=== PATIENT | female | born 1945 | race Caucasian/White ===

== ENCOUNTER 2019-08-17 01:18 | Day surgery (SDC) | payer MEDICARE, OTHER, SELFPAY ==
[2019-07-25 16:24] VITALS: BMI 41.3
[2019-08-17] VITALS (13 sets, daily range): BP systolic 149–183; BP diastolic 69–89; PULSE 49–102; RESP 16–24; TEMP 36.3–36.7; O2SAT 95–99; BMI 43.1
[2019-08-17] MEDS: LACTATED RINGERS 1,000 ML 30 ML IV CONT (13:15)
[2019-08-17 13:31] LABS: INR 1.6; Prothrombin Time 18.2 Seconds (11.1-14.7)
[2019-08-17 13:36] LABS: Partial Thromboplastin Time 33.6 SECONDS (22.3-36.8)
[2019-08-17 13:42] LABS: Glucose Point of Care 101 (65-105)
[2019-08-17] MEDS: ceFAZolin 2 GM/D5W 50 ML 2 GM/50 ML BAG IVPB (15:00)
--- NOTE | 2019-08-17 16:05 | PM.PROC ---
Procedure Note - Detailed Date of procedure: 08/17/19 Pre-op diagnosis: Prolapsed Bleeding internal & External Hemorrhoids Post-op diagnosis: same Procedure performed: Excision right anterior complex internal and external hemorrhoids, excision right posterior complex internal and external hemorrhoids, rubber-band ligation right posterior internal hemorrhoid. Description of procedure: The patient was taken to surgery and induced into general anesthesia. She was then placed in prone tobias-knife position. She was carefully secured to the operating room table. The buttocks were taped apart. Prep and drape was carried out. Local anesthesia was infiltrated using 20 cc deep subdermal and 20 cc intra sphincteric. The largest complex was the right anterior. This was excised using the cautery. There was minimal bleeding. The wound was closed with running locking 4 0 chromic suture. There was also a right posterior complex. This was likewise exposed, then excised. Both of these were sent labeled separately and appropriately to the lab in formalin. This wound was likewise closed with running locking 4 0 chromic suture. There was an additional internal hemorrhoid in the right posterior location which was rubber-band ligated. The really were no hemorrhoids on the left side. The wound was inspected for hemostasis which was excellent. Xeroform gauze fluffs tape and promise panties were placed over the rectum. The patient was returned to a supine position. She was awakened, extubated and taken to recovery in good condition. Sponge and needle counts were correct x2. Anesthesia: GETA and local (0.5% Marcaine with Exparel) Surgeon: Blas Lazo MD Ceiling Installer: Braden SOLIS Estimated blood loss (mL): 10 Drains: No Packing: No Pathology: yes (Right anterior complex internal and external hemorrhoids, right posterior complex internal external hemorrhoids) Complications: None Condition: stable Disposition: PACU Findings: See op note, internal and external hemorrhoids.
[2019-08-17 16:26] LABS: Glucose Point of Care 85 (65-105)
--- NOTE | 2019-08-17 17:44 | ADMGEN ---
This patient, Ermelinda Oneill, was admitted to [facility]. Patient/family oriented to hospital policies and general routines including ID bracelet, bed and alarms, visiting hours, pain management, procedures, bathroom and other care routines, personal items, smoking policy, room service/diet, and visiting hours. Valuables list has been completed. Information on how to activate the Rapid Response Team has been discussed. Patient/Family are encouraged to report perceived risks to care and to ask questions if they do not understand what they are told or what they should do.
[2019-08-17 18:38] LABS: Glucose Point of Care 115 (65-105)
--- NOTE | 2019-08-17 19:58 | PC.NURSE ---
brannon placed patient tolrated well.
[2019-08-17 20:44] LABS: Glucose Point of Care 164 (65-105)
[2019-08-17] MEDS: MINERAL OIL 30 ML UDC 15 ML PO (21:41)
[2019-08-17] MEDS: PSYLLIUM POWDER PACKET 1 PACKET PO (21:41)
[2019-08-17] MEDS: POTASSIUM CHLORIDE 10 MEQ TABLET.ER PO (21:43)
[2019-08-17] MEDS: METOPROLOL TARTRATE 12.5 MG TABLET PO (21:43)
[2019-08-17] MEDS: glipiZIDE 5 MG TABLET PO (21:43)
[2019-08-17] MEDS: LORAZEPAM 0.5 MG TABLET PO (21:43)
[2019-08-17] MEDS: PANTOPRAZOLE 40 MG TABLET PO (21:44)
[2019-08-17] MEDS: ATORVASTATIN 40 MG TABLET 80 MG PO (21:44)
[2019-08-17] MEDS: levETIRAcetam 500 MG TABLET PO (21:45)
[2019-08-17] MEDS: ENOXAPARIN 30 MG/0.3 ML SYRINGE SUB-Q (21:46)
[2019-08-18 06:40] VITALS: BP 131/51; PULSE 59; RESP 20; TEMP 36.6; O2SAT 96
[2019-08-18 06:44] LABS: Hematocrit 40.1 % (37.0-47.0); Hemoglobin 12.9 g/dL (12.0-15.0); Immature Platelet Fraction Pct 13.9 % (0.9-11.2); Mean Corpuscular HGB Conc 32.2 g/dl (32-36); Mean Corpuscular Hemoglobin 29.2 pg (26-34); Mean Corpuscular Volume 90.7 fl (80-100); Mean Platelet Volume 13.4 fl (7.4-10.4); Platelet Count Result 222 k/mm3 (150-375); Red Blood Count 4.42 M/mm3 (4.2-5.4); Red Cell Distribution Width 13.5 % (11.5-14.5); White Blood Count 15.9 K/mm3 (4.5-10.0)
[2019-08-18 06:54] LABS: Blood Urea Nitrogen 19 mg/dL (7-17); Carbon Dioxide 28 mmol/L (22-30); Chloride 100 mmol/L (98-107); Estimated Glomerular Filt Rate 37; Glucose 133 mg/dL (65-105); Sodium 140 mmol/L (137-145)
[2019-08-18 08:00] VITALS: PULSE 59; RESP 20; O2SAT 96
[2019-08-18] MEDS: CYANOCOBALAMIN 1,000 MCG TABLET 1000 MCG PO (10:06)
[2019-08-18] MEDS: levETIRAcetam 500 MG TABLET PO (10:07)
[2019-08-18] MEDS: LOSARTAN POTASSIUM 100 MG TABLET PO (10:08)
[2019-08-18] MEDS: METOPROLOL TARTRATE 12.5 MG TABLET PO (10:08)
[2019-08-18] MEDS: PANTOPRAZOLE 40 MG TABLET PO (10:09)
[2019-08-18] MEDS: glipiZIDE 5 MG TABLET PO (10:09)
[2019-08-18] MEDS: CALCIUM CARBONATE (OSCAL) 500 MG TABLET PO (10:10)
[2019-08-18] MEDS: ENOXAPARIN 30 MG/0.3 ML SYRINGE SUB-Q (10:10)
[2019-08-18] MEDS: ASPIRIN 81 MG ENTERIC TABLET PO (10:10)
[2019-08-18] MEDS: MINERAL OIL 30 ML UDC 15 ML PO (10:11)
[2019-08-18] MEDS: PSYLLIUM POWDER PACKET 1 PACKET PO (10:14)
--- NOTE | 2019-08-18 10:19 | PM.DS ---
DS: Diagnosis Admitting Diagnosis Admitting Diagnosis: Type 2 diabetes mellitus without complications Internal and External Hemorrhoids Discharge Diagnosis (1) Internal and external bleeding hemorrhoids: Code(s): K64.4 - Residual hemorrhoidal skin tags; K64.8 - Other hemorrhoids Status: Acute (2) Morbid obesity: Code(s): E66.01 - Morbid (severe) obesity due to excess calories Status: Acute (3) Diabetes: Code(s): E11.9 - Type 2 diabetes mellitus without complications Status: Acute (4) History of CVA (cerebrovascular accident): Code(s): Z86.73 - Personal history of transient ischemic attack (TIA), and cerebral infarction without residual deficits Status: Acute DS: Summary Hospital Course Reason for hospitalization: Postoperative care after internal and external hemorrhoidectomy Hospital Course: This is a 73-year-old woman who presented with complicated internal and external hemorrhoids. She underwent elective internal external hemorrhoidectomy x2 columns by Dr. Lazo. She was admitted for postoperative care due to her chronic debility from previous stroke. She was incontinent of urine and it was difficult to keep her dressings dry initially postoperatively, therefore a Burden catheter was placed for prevention of saturating her dressings. She did well overnight and pain was controlled. Her diet was able to be advanced as tolerated. On postop day 1 her Burden catheter was removed. She was discharged on postop day 1. Status at Discharge Overall status at discharge: patient is progressing back to baseline Time Spent with Patient Time attestation: Total time spent providing and/or coordinating discharge services: Time spent: Less than 30 minutes Exam GI: Rectal Exam: other (Normal postoperative appearance without significant bleeding) Urinary Catheter: Urinary Catheter: urine clear DS: Data Data Completed and Pending Pending studies at discharge: Pending at discharge 08/17/19 15:37 Surgical [PTH] Routine 08/17/19 15:39 Surgical [PTH] Routine Labs on day of discharge: Labs from last 24 hours 08/18/19 08/18/19 08/17/19 06:03 06:03 19:40 WBC 15.9 H RBC 4.42 Hgb 12.9 Hct 40.1 MCV 90.7 MCH 29.2 MCHC 32.2 RDW 13.5 Plt Count 222 MPV 13.4 H % Immature Plt Fraction 13.9 H PT INR APTT Sodium 140 Potassium 5.0 Chloride 100 Carbon Dioxide 28 BUN 19 H Creatinine 1.40 H Estim Creat Clear Calc Not Reportable Estimated GFR 37 L Glucose 133 H POC Capillary Glucose 164 H Calcium 8.0 L 08/17/19 08/17/19 08/17/19 18:34 16:23 13:39 WBC RBC Hgb Hct MCV MCH MCHC RDW Plt Count MPV % Immature Plt Fraction PT INR APTT Sodium Potassium Chloride Carbon Dioxide BUN Creatinine Estim Creat Clear Calc Estimated GFR Glucose POC Capillary Glucose 115 H 85 101 Calcium 08/17/19 13:13 WBC RBC Hgb Hct MCV MCH MCHC RDW Plt Count MPV % Immature Plt Fraction PT 18.2 H INR 1.6 APTT 33.6 Sodium Potassium Chloride Carbon Dioxide BUN Creatinine Estim Creat Clear Calc Estimated GFR Glucose POC Capillary Glucose Calcium Discharge Plan Discharge Patient Disposition: Home, Self-Care Discharge Instructions: Discharge Instructions for Anorectal Surgery Dr. Lazo 1. May discharge from Outpatient Surgery area or Surgical Floor when stable per protocol. 2. Activity: Remove dressing and start Sitz baths in a.m. following surgery. Once at home, all patients should take 10-20 minute Sitz baths at least three times per day and as needed after each bowel movement. Rest around the house for the next 1-2 days, taking frequent walks. No driving for 2-3 days or while taking narcotic pain medications. 3
[2019-08-18 11:50] LABS: Glucose Point of Care 199 (65-105)
--- NOTE | 2019-08-18 12:46 | WPDANESPN ---
Anes - Prog Note Post-Op Date/Time: 08/18/19 12:46 Cardiovascular status: normal Respiratory status: normal Airway patency: baseline Mental status: baseline Post-Op hydration status: normal Vital Signs: Last Vital Signs Temp 97.8 F 08/18/19 06:40 Pulse 59 L 08/18/19 08:00 Resp 20 08/18/19 08:00 BP 131/51 L 08/18/19 06:40 Pulse Ox 96 08/18/19 08:00 I/O: Intake & Output 08/17/19 08/18/19 08/18/19 23:59 07:59 15:59 Intake Total 400 200 240 Output Total 325 600 Balance 75 -400 240 Laboratory Tests 08/18/19 06:03 08/18/19 06:03 08/17/19 08/17/19 08/17/19 13:13 13:39 16:23 WBC RBC Hgb Hct MCV MCH MCHC RDW Plt Count MPV % Immature Plt Fraction PT 18.2 H INR 1.6 APTT 33.6 Sodium Potassium Chloride Carbon Dioxide BUN Creatinine Estim Creat Clear Calc Estimated GFR Glucose POC Capillary Glucose 101 85 Calcium 08/17/19 08/17/19 08/18/19 18:34 19:40 06:03 WBC 15.9 H RBC 4.42 Hgb 12.9 Hct 40.1 MCV 90.7 MCH 29.2 MCHC 32.2 RDW 13.5 Plt Count 222 MPV 13.4 H % Immature Plt Fraction 13.9 H PT INR APTT Sodium Potassium Chloride Carbon Dioxide BUN Creatinine Estim Creat Clear Calc Estimated GFR Glucose POC Capillary Glucose 115 H 164 H Calcium 08/18/19 08/18/19 06:03 11:48 WBC RBC Hgb Hct MCV MCH MCHC RDW Plt Count MPV % Immature Plt Fraction PT INR APTT Sodium 140 Potassium 5.0 Chloride 100 Carbon Dioxide 28 BUN 19 H Creatinine 1.40 H Estim Creat Clear Calc Not Reportable Estimated GFR 37 L Glucose 133 H POC Capillary Glucose 199 H Calcium 8.0 L Post-procedural complaints: none Patient Feedback: Patient satisfied with anesthetic care.
[2019-08-18 13:31] VITALS: BP 135/58; PULSE 60; RESP 16; TEMP 36.2; O2SAT 97
== END 2019-08-18 17:50 | disposition home or self-care (01) ==
LOC: ANHSURGERY 16:05 → ANH3MEDSUR 18:05
PROVIDERS: Anesthesiology; PCP Family Medicine; Visit Provider Surgery
PROC: (CPT 46260; principal; 2019-08-17 14:30)
DX: K64.8 Other hemorrhoids (principal); K64.4 Residual hemorrhoidal skin tags; E11.9 Type 2 diabetes mellitus without complications; I10 Essential (primary) hypertension; E78.5 Hyperlipidemia, unspecified; Z86.73 Personal history of transient ischemic attack (TIA), and cerebral infarction without residual deficits; E66.01 Morbid (severe) obesity due to excess calories; Z68.41 Body mass index [BMI] 40.0-44.9, adult; Z79.01 Long term (current) use of anticoagulants; Z87.891 Personal history of nicotine dependence
CPT/HCPCS: 46260; 36415; 80048; 85027; 85055; 85610; 85730; 88304; A9270; C9290; J0690; J1650; J2405; J2704; J3010; J7120

== ENCOUNTER 2019-10-08 17:00 | Emergency (ER) | payer MEDICARE, OTHER, SELFPAY ==
--- NOTE | ~2019-10-08 | CT_ITS ---
EXAMINATION: CT brain wo con, CT cervical spine wo con EXAM DATE: 10/08/2019 18:52 INDICATION: Fall. Neck pain. On blood thinners. TECHNIQUE: Spiral CT of the head was performed without contrast. Axial, coronal and sagittal images were reviewed. Spiral CT of the cervical spine was performed without contrast. Axial images were rev iewed. Coronal and sagittal reformatted images were also reviewed. The dose-length product (DLP) fo r this examination was 605.33 (accession [id number]), 516.52 (accession [id number]) mGy-cm. The exposure was tailored according to patient size, and iterative reconstruction (ASIR) was used as additional dose reduction technique. Comparison is made to prior examination from 09/15/2018. FINDINGS: HEAD CT: There is small old left occipital lobe infarction unchanged. Small old left frontal lobe sub cortical infarction unchanged. There is no acute intraparenchymal hemorrhage. No evidence of intrapa renchymal brain mass lesion. No evidence of acute infarction. There is moderate periventricular and subcortical hypodensity, nonspecific but probably related to small vessel ischemic disease. There i s mild to moderate prominence of the sulci and ventricles related to cerebral atrophy. There is int racranial carotid arteriosclerosis. There is no mass effect or midline shift. There is no obstructi ve hydrocephalus suspected. There are no extra-axial collections. There are no acute calvarial frac tures. The orbits are unremarkable. Soft tissue is unremarkable. The visualized sinuses and mastoi d air cells are well aerated. CERVICAL CT: There is no evidence of acute cervical fracture. The odontoid process is intact. Pre- dens space is normal. Prevertebral soft tissue is normal. There are no soft tissue abnormalities id entified. There is no disc space widening or traumatic vertebral body subluxation suspected. There is moderate lower cervical disc disease. Overall moderate cervical arthropathy. Some significant lowe r cervical neural foraminal stenosis, moderate to severe at the right C6-7 level. A detailed level b y level evaluation of spondylosis can be added as addendum if requested. IMPRESSION: 1. No acute intracranial or cervical findings. 2. Old small left-sided infarctions. 3. Age-related intracranial findings. 4. Moderate cervical spondylosis. Reviewed, dictated and finalized at location A. IMPRESSION: 1. No acute intracranial or cervical findings. 2. Old small left-sided infarctions. 3. Age-related intracranial findings. 4. Moderate cervical spondylosis.
--- NOTE | ~2019-10-08 | XR_ITS ---
EXAMINATION: XR pelvis 1-2V EXAM DATE: 10/08/2019 19:18 INDICATION: Fall, tailbone pain. TECHNIQUE: Pelvis frontal projection(s) obtained and reviewed. There is no prior study for compariso n. FINDINGS: There are no acute pelvic fractures or dislocations identified. Sacrum, sacroiliac joints, sacral arcuate lines are intact. There is no subcutaneous gas. The soft tissue is unremarkable. There are no radiopaque foreign bodies. IMPRESSION: No acute osseous findings. Reviewed, dictated and finalized at location A. IMPRESSION: No acute osseous findings.
--- NOTE | ~2019-10-08 | XR_ITS ---
EXAMINATION: XR thoracic spine 3V EXAM DATE: 10/08/2019 19:19 INDICATION: Fall, back pain. TECHNIQUE: Frontal and lateral projections of the thoracic spine as well as lateral swimmers projecti on of the upper thoracic spine for interpretation. There is no prior study for comparison. FINDINGS: Vertebral body heights are maintained. There is mild to moderate mid thoracic disc disease . The vertebral bodies are aligned in the AP dimension. There are no acute fractures identified. Ther e are cholecystectomy clips. IMPRESSION: Mild to moderate mid thoracic spondylosis. Reviewed, dictated and finalized at location A.
--- NOTE | ~2019-10-08 | XR_ITS ---
EXAMINATION: XR ribs LT 2V w CXR 2V EXAM DATE: 10/08/2019 19:18 INDICATION: Fall, left-sided rib pain. TECHNIQUE: Frontal projection of the upper left ribs, frontal projection of the lower left ribs, obli que projection of the left ribs, frontal and lateral chest x-ray(s) for interpretation. Comparison is made to prior examination from 03/27/2019. FINDINGS: There are no displaced acute left rib fractures identified. There is no soft tissue abnor mality seen. No confluent consolidation, pneumothorax or pleural effusion suspected. IMPRESSION: No displaced left rib fractures. Reviewed, dictated and finalized at location A.
--- NOTE | ~2019-10-08 | XR_ITS ---
EXAMINATION: XR hand LT min 3V EXAM DATE: 10/08/2019 19:17 INDICATION: Initial encounter following injury, with pain of the left hand. Laceration. TECHNIQUE: Left hand frontal, lateral and oblique projections obtained and reviewed. There is no jessica or study for comparison. FINDINGS: Left metacarpal bones are unremarkable. There are no acute fractures or dislocations ident ified. There is no subcutaneous gas. There is a bandage overlying soft tissue laceration, obscuring soft tissue details. There are no radiopaque foreign bodies. 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 IMPRESSION: 1. XR hand LT min 3V exam without acute osseous findings. 2. Laceration. Reviewed, dictated and finalized at location A.
[2019-10-08 17:00] VITALS: BP 151/72; PULSE 78; RESP 16; TEMP 36.8; O2SAT 99
--- NOTE | 2019-10-08 18:48 | ED.FALL ---
HPI - Fall General Chief Complaint: Fall <Nishi Sweeney PA-C - Last Filed: 10/08/19 20:36> Stated Complaint: fall <Nishi Sweeney PA-C - Last Filed: 10/08/19 20:36> Time Seen by Provider: 10/08/19 17:09 <Nishi Sweeney PA-C - Last Filed: 10/08/19 20:36> Source: patient <SHANTEL Glaser Last Filed: 10/08/19 20:36> Mode of arrival: EMS <SHANTEL Glaser Last Filed: 10/08/19 20:36> Limitations: no limitations <SHANTEL Glaser Last Filed: 10/08/19 20:36> History of Present Illness HPI Narrative: Patient presents with chief complaint of pain to posterior left side of head and neck, thoracic spine, left rib, pelvis, laceration to the left hand after miss stepping while wearing flip-flops in her garage and falling. Patient was wearing medical alert necklace and was retrieved and brought to the ER in 15 minutes after falling. She reports she has had multiple strokes in the past which affect her leg lifting at times. Patient denies loss of consciousness. Patient denies changes to vision, hearing, nausea, vomiting, diarrhea, chest pain, shortness of breath, fever, cough or neurological deficit. She reports she is having more more muscle soreness that she sits. Patient states that she has not fallen in a year and a half and thinks it is due to wearing new slippery flip-flops.Patient reports being on warfarin. She states some of her neck and back pain is chronic but has worsened after fall. <Nishi Sweeney PA-C - Last Filed: 10/08/19 20:36> Related Data Home Medications: Home Medications Medication Instructions Recorded Confirmed aspirin 81 mg tablet,delayed 81 mg PO DAILY 07/23/19 09/17/19 release calcium carbonate 600 mg calcium 600 mg PO DAILY 07/23/19 09/17/19 (1,500 mg) tablet cyanocobalamin (vitamin B-12) 1,000 mcg PO DAILY 07/23/19 09/17/19 1,000 mcg capsule levetiracetam 500 mg tablet 500 mg PO Q12H 07/23/19 09/17/19 albuterol sulfate [Proventil HFA] 1 inh INHALATION QID PRN 07/25/19 09/17/19 atorvastatin 80 mg PO HS 07/25/19 09/17/19 glipizide 5 mg PO BID 07/25/19 09/17/19 lorazepam 0.5 mg PO HS 07/25/19 09/17/19 losartan 100 mg PO DAILY 07/25/19 09/17/19 metoprolol tartrate 12.5 mg PO BID 07/25/19 09/17/19 omeprazole 40 mg PO DAILY 07/25/19 09/17/19 potassium chloride 10 meq PO HS 07/25/19 09/17/19 warfarin 2 mg PO HS 07/25/19 09/17/19 <Nishi Sweeney PA-C - Last Filed: 10/08/19 20:36> Allergies/Adverse Reactions: Allergies Allergy/AdvReac Type Severity Reaction Status Date / Time No Known Allergies Allergy Verified 09/17/19 13:47 <Nishi Sweeney PA-C - Last Filed: 10/08/19 20:36> Review of Systems Review of Systems: Narrative: CONSTITUTIONAL: Denies fever, chills, or sweats. EYES: Denies visual changes, redness, or discharge. ENT: Denies rhinorrhea, congestion, sore throat, or otalgia. CARDIOVASCULAR: Denies chest pain, palpitations, or edema. RESPIRATORY: Denies cough or dyspnea. GASTROINTESTINAL: Denies abdominal pain, nausea, vomiting, or diarrhea. GENITOURINARY: Denies dysuria or hematuria. SKIN: Denies rash or itching. MUSCULOSKELETAL: Reports head pain, neck pain, back pain, left rib pain, pelvic pain NEUROLOGIC: Reports headache, denies numbness, dizziness, or weakness. PSYCHIATRIC: Denies anxiety or depression. <Nishi Sweeney PA-C - Last Filed: 10/08/19 20:36> [facility] Social History Social History: Social History Smoking status: Former smoker Alcohol intake: never Substance use: never Substance use type: does not use Gender identity (if verbalized by the patient): Female Spiritual care concerns: No <Nishi Sweeney PA-C - Last Filed: 10/08/19 20:36> Exam Narrative: Exam Narrative: GENERAL: Well-appearing, well-nourished, and in no acute distress. HEAD: Normocephalic, atraumatic.left posterior head tenderness EYES: PERRLA and EOMI.No hyphema.
[2019-10-08 19:38] VITALS: BP 166/60; PULSE 62; RESP 19; TEMP 36.6; O2SAT 98
--- NOTE | 2019-10-08 19:38 | PC.NURSE ---
Assumed care of pt at this time. report from SHIRA Davies
[2019-10-08 21:00] VITALS: BP 165/65; PULSE 100; RESP 19; O2SAT 97
== END 2019-10-08 21:00 | disposition home or self-care (01) ==
PROVIDERS: Emergency Provider Emergency Medicine; PCP Family Medicine
DX: S61.412A Laceration without foreign body of left hand, initial encounter (principal); M54.2 Cervicalgia; M53.3 Sacrococcygeal disorders, not elsewhere classified; M54.6 Pain in thoracic spine; S09.90XA Unspecified injury of head, initial encounter; Z87.891 Personal history of nicotine dependence; M47.812 Spondylosis without myelopathy or radiculopathy, cervical region; M47.814 Spondylosis without myelopathy or radiculopathy, thoracic region; W10.9XXA Fall (on) (from) unspecified stairs and steps, initial encounter
CPT/HCPCS: 12002; 70450; 71045; 71101; 72072; 72125; 72170; 73130; 96374; 99284; J0131

== ENCOUNTER 2019-10-09 01:25 | Emergency (ER) | payer MEDICARE, OTHER, SELFPAY ==
[2019-10-09 01:32] VITALS: BP 140/83; PULSE 58; RESP 15; TEMP 36.4; O2SAT 98
--- NOTE | 2019-10-09 01:33 | ED.WOUNDLAC ---
HPI - Wound/Laceration General Chief Complaint: Wound/Laceration Stated Complaint: bleeding from wound on thumb/ wrist Time Seen by Provider: 10/09/19 01:31 Source: patient and RN notes reviewed Mode of arrival: other Limitations: no limitations History of Present Illness HPI narrative: Pt is a 73 y/o female who presents to the ED with c/o constant bleeding from her laceration on her left wrist that occurred yesterday (10/08/19) after a fall. Pt was here at [facility] yesterday and was fully evaluated. Pt had her laceration sutured, but she states that her wound still continued to bleed. Pt's wound was covered in a bandage. Pt denies numbness and tingling. Pt is taking Warfarin. Pt states that she did not take her Warfarin tonight. Onset (ago): day(s) (1) Location: other (wrist) Extremity Location: Left: wrist Place: home Patient tetanus UTD: Yes Context: fall Associated symptoms: none Treatments prior to arrival: bandage Related Data Home Medications Medication Instructions Recorded Confirmed aspirin 81 mg tablet,delayed 81 mg PO DAILY 07/23/19 09/17/19 release calcium carbonate 600 mg calcium 600 mg PO DAILY 07/23/19 09/17/19 (1,500 mg) tablet cyanocobalamin (vitamin B-12) 1,000 mcg PO DAILY 07/23/19 09/17/19 1,000 mcg capsule levetiracetam 500 mg tablet 500 mg PO Q12H 07/23/19 09/17/19 albuterol sulfate [Proventil HFA] 1 inh INHALATION QID PRN 07/25/19 09/17/19 atorvastatin 80 mg PO HS 07/25/19 09/17/19 glipizide 5 mg PO BID 07/25/19 09/17/19 lorazepam 0.5 mg PO HS 07/25/19 09/17/19 losartan 100 mg PO DAILY 07/25/19 09/17/19 metoprolol tartrate 12.5 mg PO BID 07/25/19 09/17/19 omeprazole 40 mg PO DAILY 07/25/19 09/17/19 potassium chloride 10 meq PO HS 07/25/19 09/17/19 warfarin 2 mg PO 07/25/19 09/17/19 Allergies Allergy/AdvReac Type Severity Reaction Status Date / Time No Known Allergies Allergy Verified 09/17/19 13:47 Review of Systems Review of Systems: All systems reviewed & are unremarkable except as noted in HPI and below Integumentary/Breasts: Skin/Breast: Reports other (constant bleeding from sutured laceration) Neurologic: Denies numbness and Denies tingling PMFSH Past Medical History Medical History (Updated 10/09/19 @ 01:52 by Lelia Martini) Anxiety Arthritis Asthma Bronchitis CAD (coronary artery disease) Carpal tunnel syndrome Cataracts, bilateral DDD (degenerative disc disease) Depression Diabetes Diverticulosis DVT (deep venous thrombosis) Eczema Encounter for surgical aftercare following surgery on the digestive system Endometriosis Fibromyalgia Frequent falls GERD (gastroesophageal reflux disease) Glaucoma Grade IV hemorrhoids History of CVA (cerebrovascular accident) 2017 x3, with residual right sided weakness HTN (hypertension) Hyperlipidemia IBS (irritable bowel syndrome) Internal and external bleeding hemorrhoids Morbid obesity Peripheral neuropathy Pneumonia Rectocele Seizure Skin cancer on nose Sleep apnea Spinal stenosis TIA (transient ischemic attack) 2018 Tinnitus Toe fracture Uterine fibroid UTI (urinary tract infection) Surgical History Surgical History (Updated 10/09/19 @ 01:52 by Lelia Martini) H/O rectocele repair History of cardiac catheterization History of carpal tunnel release History of hemorrhoidectomy 08/27/2019 History of spinal surgery History of surgical removal of skin lesion on nose History of total right knee replacement (TKR) History of tubal ligation Hx of appendectomy Hx of breast reduction, elective Hx of cataract removal with insertion of prosthetic lens Hx of section x3 Hx of cholecystectomy Hx of tonsillectomy Family History Family History (Updated 10/09/19 @ 01:51 by Lelia Martini) Father Family history of malignant neoplasm Lung cancer Mother Family history of malignant neoplasm Diabetes mellitus Hypertension CAD (coronary artery disease) Bone cancer Acute myocardial inf
[2019-10-09 02:00] VITALS: BP 163/88; PULSE 88; RESP 17; O2SAT 97
== END 2019-10-09 02:00 | disposition home or self-care (01) ==
PROVIDERS: Emergency Provider Emergency Medicine; PCP Family Medicine
DX: S61.512D Laceration without foreign body of left wrist, subsequent encounter (principal); W19.XXXD Unspecified fall, subsequent encounter; Z79.01 Long term (current) use of anticoagulants; F41.9 Anxiety disorder, unspecified; M19.90 Unspecified osteoarthritis, unspecified site; J45.909 Unspecified asthma, uncomplicated; I25.10 Atherosclerotic heart disease of native coronary artery without angina pectoris; F32.9 Major depressive disorder, single episode, unspecified; Z86.718 Personal history of other venous thrombosis and embolism; M79.7 Fibromyalgia; K21.9 Gastro-esophageal reflux disease without esophagitis; H40.9 Unspecified glaucoma; I10 Essential (primary) hypertension; E78.5 Hyperlipidemia, unspecified; E11.42 Type 2 diabetes mellitus with diabetic polyneuropathy; E66.01 Morbid (severe) obesity due to excess calories; Z85.828 Personal history of other malignant neoplasm of skin; G47.30 Sleep apnea, unspecified; I69.351 Hemiplegia and hemiparesis following cerebral infarction affecting right dominant side; Z96.651 Presence of right artificial knee joint; G40.909 Epilepsy, unspecified, not intractable, without status epilepticus
CPT/HCPCS: 12001; 99282

== ENCOUNTER 2019-10-09 07:58 | Emergency (ER) | payer MEDICARE, OTHER, SELFPAY ==
[2019-10-09 08:02] VITALS: BP 175/80; PULSE 67; RESP 20; TEMP 36.6; O2SAT 98
--- NOTE | 2019-10-09 09:15 | ED.GENADULT ---
HPI - General Adult General Chief complaint: Wound/Laceration Stated complaint: Hand won't stop bleeding Time Seen by Provider: 10/09/19 08:26 Source: patient, family and old records reviewed History of Present Illness HPI narrative: Patient is a 73-year-old female who presents to emergency department for evaluation of bleeding from laceration of the left hand was seen yesterday had repair wound continued to bleed Surgicel was placed patient notes that she has continued to have oozing from the wound patient assures clear secondary to history of stroke. Patient notes mild aching pain with palpation denies numbness tingling or other complaints and on arrival is resting comfortably in the room in no distress Related Data Home Medications Medication Instructions Recorded Confirmed aspirin 81 mg tablet,delayed 81 mg PO DAILY 07/23/19 09/17/19 release calcium carbonate 600 mg calcium 600 mg PO DAILY 07/23/19 09/17/19 (1,500 mg) tablet cyanocobalamin (vitamin B-12) 1,000 mcg PO DAILY 07/23/19 09/17/19 1,000 mcg capsule levetiracetam 500 mg tablet 500 mg PO Q12H 07/23/19 09/17/19 albuterol sulfate [Proventil HFA] 1 inh INHALATION QID PRN 07/25/19 09/17/19 atorvastatin 80 mg PO HS 07/25/19 09/17/19 glipizide 5 mg PO BID 07/25/19 09/17/19 lorazepam 0.5 mg PO HS 07/25/19 09/17/19 losartan 100 mg PO DAILY 07/25/19 09/17/19 metoprolol tartrate 12.5 mg PO BID 07/25/19 09/17/19 omeprazole 40 mg PO DAILY 07/25/19 09/17/19 potassium chloride 10 meq PO HS 07/25/19 09/17/19 warfarin 2 mg PO HS 07/25/19 09/17/19 Allergies Allergy/AdvReac Type Severity Reaction Status Date / Time No Known Allergies Allergy Verified 09/17/19 13:47 Review of Systems Review of Systems: Narrative: CONSTITUTIONAL: Denies fever, chills, or sweats. SKIN: Positive for laceration with bleeding MUSCULOSKELETAL: Denies back pain, joint pain, or myalgia. NEUROLOGIC: Denies numbness, dizziness, or weakness. [facility] Past Medical History Medical History Anxiety Arthritis Asthma Bronchitis CAD (coronary artery disease) Carpal tunnel syndrome Cataracts, bilateral DDD (degenerative disc disease) Depression Diabetes Diverticulosis DVT (deep venous thrombosis) Eczema Encounter for surgical aftercare following surgery on the digestive system Endometriosis Fibromyalgia Frequent falls GERD (gastroesophageal reflux disease) Glaucoma Grade IV hemorrhoids History of CVA (cerebrovascular accident) 2017 x3, with residual right sided weakness HTN (hypertension) Hyperlipidemia IBS (irritable bowel syndrome) Internal and external bleeding hemorrhoids Morbid obesity Peripheral neuropathy Pneumonia Rectocele Seizure Skin cancer on nose Sleep apnea Spinal stenosis TIA (transient ischemic attack) 2018 Tinnitus Toe fracture Uterine fibroid UTI (urinary tract infection) Surgical History Surgical History H/O rectocele repair History of cardiac catheterization History of carpal tunnel release History of hemorrhoidectomy 08/27/2019 History of spinal surgery History of surgical removal of skin lesion on nose History of total right knee replacement (TKR) History of tubal ligation Hx of appendectomy Hx of breast reduction, elective Hx of cataract removal with insertion of prosthetic lens Hx of section x3 Hx of cholecystectomy Hx of tonsillectomy Family History Family History (Updated 10/09/19 @ 01:51 by Lelia Martini) Father Family history of malignant neoplasm Lung cancer Mother Family history of malignant neoplasm Diabetes mellitus Hypertension CAD (coronary artery disease) Bone cancer Acute myocardial infarction Sibling Hypertension Social History Social History Smoking status: Former smoker Tobacco type: cigarettes Smoking end date: 07/11/01 [place]
[2019-10-09 09:24] LABS: Prothrombin Time 52.2 Seconds (11.1-14.7)
[2019-10-09 09:29] LABS: INR 5.9
[2019-10-09 09:56] LABS: Basophils Percent Auto 0.4 % (0.2-1.2); Eosinophils Absolute Auto 0.3 K/mm3 (0-0.3); Eosinophils Percent Auto 2.4 % (0-4.4); Hematocrit 41.8 % (37.0-47.0); Hemoglobin 13.4 g/dL (12.0-15.0); Immature Granulocyte Absolute 0.04 K/mm3 (0.00-0.031); Immature Granulocyte Percent A 0.4 % (0-0.5); Immature Platelet Fraction Pct 11.7 % (0.9-11.2); Lymphocytes Absolute Auto 2.71 K/mm3 (0.9-3.2); Lymphocytes Percent Auto 25.5 % (18.3-44.2); Mean Corpuscular HGB Conc 32.1 g/dl (32-36); Mean Corpuscular Hemoglobin 29.1 pg (26-34); Mean Corpuscular Volume 90.7 fl (80-100); Monocytes Absolute Auto 0.9 K/mm3 (0.1-0.6); Monocytes Percent Auto 8.4 % (2.6-8.5); Neutrophils Absolute Auto 6.7 K/mm3 (1.3-6.7); Neutrophils Percent Auto 62.9 % (45.5-73.1); Platelet Count Result 209 k/mm3 (150-375); Red Blood Count 4.61 M/mm3 (4.2-5.4); Red Cell Distribution Width 14.8 % (11.5-14.5); White Blood Count 10.6 K/mm3 (4.5-10.0)
[2019-10-09 10:16] LABS: Blood Urea Nitrogen 24 mg/dL (7-17); Calcium 8.9 mg/dL (8.4-10.2); Carbon Dioxide 22 mmol/L (22-30); Chloride 108 mmol/L (98-107); Estimated Glomerular Filt Rate 26; Glucose 173 mg/dL (65-105); Potassium 3.9 mmol/L (3.4-5.0); Sodium 138 mmol/L (137-145)
[2019-10-09 10:34] VITALS: BP 160/80; PULSE 65; RESP 16
== END 2019-10-09 10:49 | disposition home or self-care (01) ==
PROVIDERS: Emergency Medicine Emergency Medical Services; Emergency Provider Emergency Medicine; PCP Family Medicine
DX: L76.22 Postprocedural hemorrhage of skin and subcutaneous tissue following other procedure (principal); Z87.891 Personal history of nicotine dependence; F41.9 Anxiety disorder, unspecified; M19.90 Unspecified osteoarthritis, unspecified site; I25.10 Atherosclerotic heart disease of native coronary artery without angina pectoris; E11.42 Type 2 diabetes mellitus with diabetic polyneuropathy; Z86.718 Personal history of other venous thrombosis and embolism; M79.7 Fibromyalgia; K21.9 Gastro-esophageal reflux disease without esophagitis; I69.351 Hemiplegia and hemiparesis following cerebral infarction affecting right dominant side; I10 Essential (primary) hypertension; E78.5 Hyperlipidemia, unspecified; E66.01 Morbid (severe) obesity due to excess calories; Z85.828 Personal history of other malignant neoplasm of skin; G47.30 Sleep apnea, unspecified; G40.909 Epilepsy, unspecified, not intractable, without status epilepticus; Z96.651 Presence of right artificial knee joint
CPT/HCPCS: 12001; 36415; 80048; 85025; 85055; 85610; 99282

== ENCOUNTER 2019-10-25 15:22 | Inpatient (IN) | payer MEDICARE, OTHER, SELFPAY ==
--- NOTE | ~2019-10-25 | XR_ITS ---
EXAMINATION: XR chest 2V 10/25/2019 16:43 INDICATION: Weakness for 3 days. History of abnormal asthma and shortness of breath. PROCEDURE: 2 view chest COMPARISON: Comparison to multiple prior studies sequentially, with oldest reviewed study dated 02/24 . FINDINGS: The lungs are clear. The cardiomediastinal silhouette is within normal limits. There are no pleural effusions. There is no pneumothorax suspected. Calcified granuloma left upper lobe. IMPRESSION: 1: NO ACUTE CARDIOPULMONARY DISEASE. Reviewed, dictated and finalized at location A.
--- NOTE | ~2019-10-25 | XR_ITS ---
EXAMINATION: XR femur LT min 2V INDICATION: Left thigh pain TECHNIQUE: Two views of the left femur are obtained on four radiographs. COMPARISON: None available FINDINGS: There is mild left hip osteoarthritis. Bone alignment is normal. There is no fracture. Ther e is calcified atherosclerosis. Mild osteoarthritis is noted in the knee. IMPRESSION: 1. No acute osseous abnormality. Reviewed, dictated and finalized at location A.
--- NOTE | ~2019-10-25 | US_ITS ---
EXAMINATION: US right upper quadrant DATE: 10/30/2019 14:13 INDICATION: Transaminitis TECHNIQUE: Multiple grayscale and Doppler ultrasound images of the abdomen were obtained. COMPARISON: CT abdomen and pelvis dated 03/27/2019 FINDINGS: The pancreatic head and body are normal in appearance. The main pancreatic duct measures 2.5 mm at th e neck of the pancreas which is within normal limits. The pancreatic tail is not visualized. Liver cannon s normal echogenicity and contour, with a smooth surface. No liver lesion identified. No intrahepatic biliary duct dilation suspected. Portal venous flow was seen in the hepatopetal, normal direction an d has normal Doppler waveform. Gallbladder is surgically absent. Common bile duct measures 4-5 mm in diameter which is normal. Visualized portions of the proximal inferior vena cava is normal. Visualize d portion of the right kidney demonstrates normal contour and echogenicity with no hydronephrosis. IMPRESSION: 1. Status post cholecystectomy. Otherwise unremarkable right upper quadrant ultrasound with no intra or extrahepatic biliary ductal dilation. Reviewed, dictated and finalized at location A. IMPRESSION: 1. Status post cholecystectomy. Otherwise unremarkable right upper quadrant ult rasound with no intra or extrahepatic biliary ductal dilation.
--- NOTE | ~2019-10-25 | CT_ITS ---
EXAMINATION: CT brain wo con DATE: 10/25/2019 16:34 INDICATION: Weakness. Falls. TECHNIQUE: Computed tomography (CT) of the head was performed without intravenous contrast. The dose- length product was 605.33 mGy-cm. The mA was adjusted according to patient size. Iterative reconstruc tion technique was employed. COMPARISON: CT dated 10/08/2019 FINDINGS: Stable chronic left occipital lobe infarction. Stable chronic left frontal lobe infarction. There are scattered mild periventricular and subcortical white matter changes, most likely related t o small vessel ischemic disease (microangiopathy). There is intracranial atherosclerosis. No acute in tracranial hemorrhage, infarction, mass or mass effect. No ventriculomegaly or midline shift. Basilar cisterns are patent. Paranasal sinuses and mastoids are pneumatized. Note for skull fractures. IMPRESSION: 1. No acute intracranial abnormality. 2: Chronic left frontal lobe and occipital lobe infarctions. 3: Chronic age-related findings. Reviewed, dictated and finalized at location A.
[2019-10-25 15:22] VITALS: BP 126/68; PULSE 57; RESP 21; TEMP 36.4; O2SAT 99
--- NOTE | 2019-10-25 16:04 | ECG_ITS ---
Measurements Intervals [place] Rate: 56 P: 52 DE: 134 QRS: -42 QRSD: 122 T: 3 QT: 472 QTc: 458 Interpretive Statements SINUS BRADYCARDIA LEFT AXIS DEVIATION RIGHT BUNDLE BRANCH BLOCK ABNORMAL ECG Electronically Signed On 10-25-2019 16:25:10 CDT by Geronimo Herring D.O.
--- NOTE | 2019-10-25 16:10 | ED.WEAKNESS ---
HPI - Weakness General Chief complaint: Weakness Stated complaint: WEAKNESS Time Seen by Provider: 10/25/19 15:54 Source: patient Mode of arrival: EMS Limitations: no limitations History of Present Illness HPI Narrative: Patient is a 73-year-old female who presents to the emergency department with complaint of generalized weakness. Patient has been feeling weak for the last few days. Patient complains of generalized weakness in her arms and legs. She reports having a fall yesterday but states she did not hit her head and did not injure anything. She also reports having a fall couple weeks ago where she hit her hand. Patient was seen in the emergency department on 10/09/2019 for hand injury and had to come back for ongoing bleeding. Patient is on warfarin. Patient denies any blood in her stools that she is noticed, any chest pain, shortness of breath aside from her usual asthma symptoms, nausea, vomiting, or fever. She does report a mild cough. MD Complaint: generalized weakness Onset (ago): day(s) Duration: constant Location: generalized Related Data Home Medications Medication Instructions Recorded Confirmed aspirin 81 mg tablet,delayed 81 mg PO HS 07/23/19 10/25/19 release calcium carbonate 600 mg calcium 600 mg PO DAILY 07/23/19 10/25/19 (1,500 mg) tablet cyanocobalamin (vitamin B-12) 1,000 mcg PO DAILY 07/23/19 10/25/19 1,000 mcg capsule levetiracetam 500 mg tablet 500 mg PO Q12H 07/23/19 10/25/19 albuterol sulfate [Proventil HFA] 1 inh INHALATION BID PRN 07/25/19 10/25/19 atorvastatin 80 mg PO HS 07/25/19 10/25/19 glipizide 5 mg PO BID 07/25/19 10/25/19 lorazepam 0.5 mg PO BID PRN 07/25/19 10/25/19 losartan 100 mg PO DAILY 07/25/19 10/25/19 metoprolol tartrate 12.5 mg PO BID 07/25/19 10/25/19 omeprazole 40 mg PO DAILY 07/25/19 10/25/19 potassium chloride 10 meq PO HS 07/25/19 10/25/19 warfarin 1 mg PO HS 07/25/19 10/25/19 fluticasone propionate [Flovent 2 inh INHALATION BID 10/25/19 10/25/19 HFA] hydrocodone-acetaminophen 1 tablet PO QID PRN 10/25/19 10/25/19 latanoprost 1 drp OPHTHALMIC (EYE) HS 10/25/19 10/25/19 Allergies Allergy/AdvReac Type Severity Reaction Status Date / Time No Known Allergies Allergy Verified 09/17/19 13:47 Review of Systems Review of Systems: All systems reviewed & are unremarkable except as noted in HPI and below Constitutional: Constitutional: Denies fever(s) Cardiovascular: Cardiovascular: Denies chest pain Respiratory: Respiratory: Reports cough and Reports dyspnea Gastrointestinal: Gastrointestinal: Denies abdominal pain, Reports diarrhea, Denies nausea and Denies vomiting [facility] Past Medical History Medical History (Updated 10/25/19 @ 22:31 by Elvira Bee MD) Anxiety Asthma Bilateral tinnitus CAD (coronary artery disease) Cardiac catheterization November 2013 demonstrated 80% stenosis of very small right ventricular marginal branch stenosis otherwise mild nonobstructive coronary artery disease Depression Diabetes Diabetic peripheral neuropathy associated with type 2 diabetes mellitus Diastolic dysfunction Noted on cardiac catheterization from 2013 with a normal EF around 65% Diverticulosis DVT (deep venous thrombosis) Eczema Endometriosis Essential hypertension Fibromyalgia Frequent falls GERD (gastroesophageal reflux disease) Glaucoma Grade IV hemorrhoids Status post hemorrhoidectomy August 17, 2019 History of CVA (cerebrovascular accident) left occipital lobe stroke February 2017, punctate left frontal lobe infarction May 2018 discharged on Coumadin Hyperlipidemia Hypocalcemia March 2019 IBS (irritable bowel syndrome) Internal and external bleeding hemorrhoids Morbid obesity Peripheral artery disease Bilateral lower extremity peripheral artery disease with mild stenosis indicated on ABIs June 2010 Peripheral neuropathy Pneumonia Seizure Skin cancer on nose Sleep apnea Spinal stenosis TIA (transient ischemic attack) 2018
[2019-10-25 17:01] LABS: Basophils Absolute Auto 0.1 K/mm3 (0.0-0.1); Basophils Percent Auto 0.5 % (0.2-1.2); Eosinophils Absolute Auto 0.3 K/mm3 (0-0.3); Eosinophils Percent Auto 2.5 % (0-4.4); Hematocrit 42.1 % (37.0-47.0); Hemoglobin 13.6 g/dL (12.0-15.0); Immature Granulocyte Absolute 0.04 K/mm3 (0.00-0.031); Immature Granulocyte Percent A 0.4 % (0-0.5); Immature Platelet Fraction Pct 9.9 % (0.9-11.2); Lymphocytes Absolute Auto 1.89 K/mm3 (0.9-3.2); Lymphocytes Percent Auto 17.4 % (18.3-44.2); Mean Corpuscular HGB Conc 32.3 g/dl (32-36); Mean Corpuscular Volume 92.7 fl (80-100); Mean Platelet Volume 13.5 fl (7.4-10.4); Monocytes Absolute Auto 0.8 K/mm3 (0.1-0.6); Monocytes Percent Auto 7.7 % (2.6-8.5); Neutrophils Absolute Auto 7.8 K/mm3 (1.3-6.7); Neutrophils Percent Auto 71.5 % (45.5-73.1); Platelet Count Result 175 k/mm3 (150-375); Red Blood Count 4.54 M/mm3 (4.2-5.4); Red Cell Distribution Width 15.8 % (11.5-14.5); White Blood Count 10.9 K/mm3 (4.5-10.0)
[2019-10-25 17:09] LABS: INR 2.1; Prothrombin Time 23.4 Seconds (11.1-14.7)
[2019-10-25 17:12] LABS: Alanine Aminotransferase 598 U/L (4-35); Albumin Level 3.1 g/dL (3.5-5.1); Alkaline Phosphatase 321 U/L (38-126); Bilirubin,Total 1.3 mg/dL (0.2-1.3); Blood Urea Nitrogen 47 mg/dL (7-17); Calcium 8.6 mg/dL (8.4-10.2); Carbon Dioxide 17 mmol/L (22-30); Chloride 105 mmol/L (98-107); Estimated Glomerular Filt Rate 11; Glucose 190 mg/dL (65-105); Potassium 4.6 mmol/L (3.4-5.0); Sodium 134 mmol/L (137-145)
[2019-10-25 17:16] LABS: Partial Thromboplastin Time 40.7 SECONDS (22.3-36.8)
[2019-10-25 17:29] LABS: Aspartate Amino Transferase 1693 U/L (14-36)
[2019-10-25 17:39] LABS: Add Urine Microscopic? YES; Amorphous Sediment Urine Few; Appearance Urine Cloudy (Clear); Bilirubin Urine Negative (Negative); Blood Urine 3+ (Negative); Color Urine Yellow (Yellow); Glucose Urine UA Negative (Negative); Ketones Urine Negative (Negative); Leukocyte Esterase Ur 2+ LEU/UL (Negative); Nitrate Urine Negative (Negative); Protein Urine 2+ mg/dL (Negative); Specific Grav Ur 1.011 (1.001-1.035); Squamous Epithelial Cell Urine Many /hpf (Few); Urobilinogen Urine Negative mg/dL (<2.0); WBC Urine 16-20 /hpf
[2019-10-25] MEDS: LACTATED RINGERS 1,000 ML 30 ML IV CONT (18:10)
[2019-10-25 19:03] LABS: Creatine Kinase > 16000 U/L (30-135)
[2019-10-25] MEDS: LACTATED RINGERS 1,000 ML 999 ML IV CONT (19:48)
[2019-10-25 20:50] VITALS: BMI 44.4
[2019-10-25 21:25] VITALS: BP 142/56; PULSE 65; RESP 16; TEMP 36.7; O2SAT 99
--- NOTE | 2019-10-25 22:00 | PM.IMHP ---
H&P: HPI History of Present Illness Chief complaint: Weakness for 3 days Narrative: Date and time of patient contact: 10/25/2019 at 10:00 p.m. Ermelinda Oneill is a 73 year old female with a past medical history of chronic kidney disease stage 3, morbid obesity, and type 2 diabetes mellitus on oral medications who presented to the ER via EMS for 3 days of generalized weakness. The patient had had a fall back on the 07 of October at which time she came in for evaluation. She had a negative evaluation at that time except for bleeding from her left palm. She came back to the ER twice on the 08 of October due to difficulty controlling the bleeding. She is on chronic anticoagulation due to history of multiple strokes. Her INR on the was 5.9. Her INR today is normal at 2.1. She has not had any further bleeding from her hand. She reported that she felt in her normal health until 3 days ago when she began having weakness of her extremities and back. She denies any fatigue but reports that she does not feel like doing anything. She has had decreased appetite for about a week and has lost 10 lb this past week. She reports that she has had a loss of taste to food but denies any loss of smell. She has had subsequent decreased appetite. She has noticed decreased urine output over the last several days with dark urine. She denies any hematuria or dysuria. She has had a mild nonproductive cough for the last 2-3 weeks. She denies any fevers or chills. She has not noticed any nausea or vomiting. She reports chronic shortness of breath due to her history of asthma. She denies any chest pain or palpitations. She did have a 2nd fall on the . She denies having hit her head and has not been having any headache. CT scan performed in the ER was negative for acute intercranial process. She denied any diarrhea or changes in bowel habits at the time of my evaluation but had evidently reported some diarrhea to the ER staff. The patient decided to come to the ER today as her is unable to care for her at home. Review of Systems Review of Systems: Narrative: 12 systems were reviewed with pertinent positives and negatives per HPI. Except as documented in the HPI, all other systems were reviewed and are negative. [facility] Past Medical History Medical History (Updated 10/26/19 @ 01:14 by Dottie J. Hopen, DO) Anxiety Asthma Bilateral tinnitus CAD (coronary artery disease) Cardiac catheterization November 2013 demonstrated 80% stenosis of very small right ventricular marginal branch stenosis otherwise mild nonobstructive coronary artery disease Depression Diabetes mellitus type 2 in obese On oral medications with last hemoglobin A1c May 2019 of 6.1 Diabetic peripheral neuropathy associated with type 2 diabetes mellitus Diastolic dysfunction Noted on cardiac catheterization from 2013 with a normal EF around 65% Diverticulosis Eczema Endometriosis Status post hysterectomy Essential hypertension Fibromyalgia Frequent falls GERD (gastroesophageal reflux disease) Glaucoma Grade IV hemorrhoids Status post hemorrhoidectomy August 17, 2019 History of CVA (cerebrovascular accident) left occipital lobe stroke February 2017, punctate left frontal lobe infarction May 2018 discharged on Coumadin Hyperlipidemia Hypocalcemia March 2019 IBS (irritable bowel syndrome) Internal and external bleeding hemorrhoids Morbid obesity Peripheral artery disease Bilateral lower extremity peripheral artery disease with mild stenosis indicated on ABIs June 2010 Peripheral neuropathy Pneumonia Seizure She denies ever having had a seizure. She states she was placed on it to increased seizure risk following her stroke. Skin cancer on nose Sleep apnea Spinal stenosis TIA (transient ischemic attack) 2017 Tinnitus Toe fracture Unilateral carotid artery disease Left carotid stenosis 50-75% Uterine fibroid UTI (urinary tract infection) Surgi
[2019-10-25 22:31] LABS: Glucose Point of Care 156 (65-105)
[2019-10-25 23:06] VITALS: PULSE 84
[2019-10-25] MEDS: WARFARIN (*PBKC) 1 MG TABLET PO (23:06)
[2019-10-25] MEDS: METOPROLOL TARTRATE 12.5 MG TABLET PO (23:06)
[2019-10-25] MEDS: levETIRAcetam 500 MG TABLET PO (23:06)
[2019-10-25] MEDS: SODIUM CHLORIDE 0.9% IV 1,000 ML 150 ML IV CONT (23:06)
[2019-10-26 00:33] LABS: CRP 2.8 mg/dL (<1.0); Creatine Kinase > 16000 U/L (30-135)
[2019-10-26 00:34] LABS: Lactate Dehydrogenase 2147 U/L (313-618)
[2019-10-26 05:33] LABS: Hematocrit 37.5 % (37.0-47.0); Hemoglobin 12.1 g/dL (12.0-15.0); Immature Platelet Fraction Pct 10.7 % (0.9-11.2); Mean Corpuscular HGB Conc 32.3 g/dl (32-36); Mean Corpuscular Volume 89.9 fl (80-100); Mean Platelet Volume 13.1 fl (7.4-10.4); Platelet Count Result 176 k/mm3 (150-375); Red Blood Count 4.17 M/mm3 (4.2-5.4); Red Cell Distribution Width 15.6 % (11.5-14.5); White Blood Count 9.8 K/mm3 (4.5-10.0)
[2019-10-26 05:57] LABS: Alanine Aminotransferase 502 U/L (4-35); Albumin Level 2.5 g/dL (3.5-5.1); Alkaline Phosphatase 260 U/L (38-126); Bilirubin,Total 1.1 mg/dL (0.2-1.3); Blood Urea Nitrogen 48 mg/dL (7-17); Calcium 7.9 mg/dL (8.4-10.2); Carbon Dioxide 17 mmol/L (22-30); Chloride 111 mmol/L (98-107); Estimated Glomerular Filt Rate 12; Glucose 80 mg/dL (65-105); Magnesium 1.2 mg/dL (1.6-2.3); Potassium 4.4 mmol/L (3.4-5.0); Sodium 136 mmol/L (137-145)
[2019-10-26] MEDS: SODIUM CHLORIDE 0.9% IV 1,000 ML 150 ML IV CONT ×2 (05:58→12:38)
[2019-10-26 06:25] LABS: Creatine Kinase > 16000 U/L (30-135)
[2019-10-26 06:26] LABS: Aspartate Amino Transferase 1463 U/L (14-36)
[2019-10-26 06:40] VITALS: BP 108/51; PULSE 65; RESP 20; TEMP 36.1; O2SAT 98
[2019-10-26 06:54] LABS: HAV RESULT Negative (Negative); Hepatitis B Core IgM Result Negative (Negative); Hepatitis B Surface Antigen Negative (Negative)
[2019-10-26 07:06] LABS: Hepatitis C Virus Antibody Negative (Negative)
[2019-10-26 08:08] VITALS: PULSE 65
[2019-10-26] MEDS: CYANOCOBALAMIN 1,000 MCG TABLET 1000 MCG PO (08:08)
[2019-10-26] MEDS: PANTOPRAZOLE 40 MG TABLET PO (08:08)
[2019-10-26] MEDS: levETIRAcetam 500 MG TABLET PO ×2 (08:08→20:11)
[2019-10-26] MEDS: METOPROLOL TARTRATE 12.5 MG TABLET PO ×2 (08:08→20:11)
[2019-10-26] MEDS: CALCIUM CARBONATE (OSCAL) 500 MG TABLET PO (08:08)
[2019-10-26 08:24] LABS: Glucose Point of Care 75 (65-105)
[2019-10-26] MEDS: FLUTICASONE PROP 220 MCG (*SP) 12 GM INHALER 2 PUFF INHALATION ×2 (09:28→19:26)
--- NOTE | 2019-10-26 10:53 | PM.IMPN ---
Progress Note: A&P Assessment and Plan (1) Acute renal failure superimposed on stage 3 chronic kidney disease: Code(s): N17.9 - Acute kidney failure, unspecified; N18.3 - Chronic kidney disease, stage 3 (moderate) Status: Acute Assessment and Plan: At presentation, Creatinine 3.9. Baseline appears to be be 1.6. Today, Cr is 3.6. This is likely due to dehydration as well as rhabdomyolysis. Hold losartan, metformin, and glipizide Continue IV fluids with normal saline at 150 mL an hour. Order PO bicarb. If acidosis does not improve, may consider bicarb drip. Continue to monitor BMP. (2) Rhabdomyolysis: Qualifiers: Encounter type: initial encounter Code(s): M62.82 - Rhabdomyolysis Status: Acute Assessment and Plan: The patient's generalized weakness is likely due to rhabdomyolysis. However the initial cause of the rhabdomyolysis is unclear. Patient states that she was only on the floor about 30 minutes prior to being assisted up. CK at presentation was >[id number] and remains as high today. Urine output is mildly decreased. Will continue patient on normal saline at 100 mL an hour. Continue to monitor CK daily. Continue to hold atorvastatin. Monitor electrolytes Monitor I&O. (3) Type 2 diabetes mellitus with hyperglycemia: Code(s): E11.65 - Type 2 diabetes mellitus with hyperglycemia Status: Acute Assessment and Plan: Blood sugar evaluated today and stable at 80. Continue to hold metformin and glipizide given the patient's acute on chronic CKD Continue moderate dose SSI, accuchecks, and hypoglycemia protocol. (4) Generalized weakness: Code(s): R53.1 - Weakness Status: Acute Assessment and Plan: Patient had been endorsing weakness for approximately 3 days prior to admission. She reports she has been less active. Specifically notes weakness in her legs. PT and OT ordered to evaluate and treat. Recommendations are greatly appreciated. (5) Suspected COVID-19 virus infection: Code(s): R68.89 - Other general symptoms and signs Status: Ruled-out Assessment and Plan: Given the current viral pandemic, patients symptoms of cough, and elevated acute phase reactants, patient had nasopharyngeal swab testing for COVID-19. Informed on 10/26/19 of negative result. Discontinue isolation precautions (6) Transaminitis: Code(s): R74.0 - Nonspecific elevation of levels of transaminase and lactic acid dehydrogenase [LDH] Status: Acute Assessment and Plan: The patient does have a history of mild elevated transaminases in the past. Liver enzymes are elevated but are decreased from presentation. Hepatitis panel is negative. May be related to rhabdomyolysis. Continue to monitor liver enzymes Consider RUQ US if transaminase remain elevated. (7) Anticoagulated by anticoagulation treatment: Code(s): Z79.01 - intermediate (current) use of anticoagulants Status: Acute Assessment and Plan: Patient takes Warfarin for history of multiple strokes. She was recently seen in the ED at this facility due to bleeding. She had a fall and was bleeding from her left palm. At the time, her INR was elevated at 5.9 and Warfarin was held. She denies any active bleeding today. INR is within therapeutic range on 10/24 at 2.1 Monitor daily INR. Resume warfarin tomorrow pending updated INR level. (8) Diastolic dysfunction: Code(s): I51.89 - Other ill-defined heart diseases Status: Acute Assessment and Plan: Per chart review, patient has history of diastolic dysfunction since 2013 with preserved EF of 65%. No signs of fluid overload on exam today. Cautiously continue IV fluids due to rhabdomyolysis. Will monitor volume status closely. (9) Hypomagnesemia: Code(s): E83.42 - Hypomagnesemia Status: Acute Assessment and Plan: Magnesium low at 1.2.
[2019-10-26] MEDS: MAGNESIUM OXIDE 400 MG TABLET PO (11:35)
[2019-10-26] MEDS: SODIUM BICARBONATE TAB 325 MG TABLET PO (11:35)
[2019-10-26 11:59] VITALS: BMI 44.4
[2019-10-26 12:00] LABS: Glucose Point of Care 147 (65-105)
[2019-10-26 13:30] LABS: SARS-CoV-2 RNA PCR Negative
[2019-10-26 14:00] VITALS: BP 157/51; PULSE 76; RESP 14; TEMP 36.1; O2SAT 99
[2019-10-26] MEDS: WARFARIN (*PBKC) 1 MG TABLET PO (17:42)
[2019-10-26 18:17] LABS: Glucose Point of Care 135 (65-105)
[2019-10-26 20:11] VITALS: PULSE 76
[2019-10-26] MEDS: SODIUM CHLORIDE 0.9% IV 1,000 ML 100 ML IV CONT (20:11)
[2019-10-26] MEDS: LATANOPROST 0.005% OP SOLN 2.5 ML BTL 1 DROP EACH EYE (20:12)
[2019-10-26] MEDS: ASPIRIN 81 MG ENTERIC TABLET PO (20:12)
[2019-10-26] MEDS: LORAZEPAM 0.5 MG TABLET PO (20:33)
[2019-10-26 21:25] VITALS: BP 137/63; PULSE 76; RESP 18; TEMP 36.3; O2SAT 99
[2019-10-26 23:51] LABS: Glucose Point of Care 142 (65-105)
[2019-10-27 04:53] VITALS: BP 144/56; PULSE 73; RESP 20; TEMP 36.4; O2SAT 99
[2019-10-27] MEDS: SODIUM CHLORIDE 0.9% IV 1,000 ML 100 ML IV CONT ×2 (04:56→14:25)
[2019-10-27 05:41] LABS: Hematocrit 34.7 % (37.0-47.0); Hemoglobin 11.2 g/dL (12.0-15.0); Immature Platelet Fraction Pct 7.9 % (0.9-11.2); Mean Corpuscular HGB Conc 32.3 g/dl (32-36); Mean Corpuscular Hemoglobin 29.6 pg (26-34); Mean Corpuscular Volume 91.8 fl (80-100); Mean Platelet Volume 13.1 fl (7.4-10.4); Platelet Count Result 167 k/mm3 (150-375); Red Blood Count 3.78 M/mm3 (4.2-5.4); Red Cell Distribution Width 15.7 % (11.5-14.5); White Blood Count 8.8 K/mm3 (4.5-10.0)
[2019-10-27 05:50] LABS: Prothrombin Time 30.9 Seconds (11.1-14.7)
[2019-10-27 06:19] LABS: Alanine Aminotransferase 473 U/L (4-35); Albumin Level 2.4 g/dL (3.5-5.1); Alkaline Phosphatase 256 U/L (38-126); Blood Urea Nitrogen 45 mg/dL (7-17); CRP 2.9 mg/dL (<1.0); Calcium 8.1 mg/dL (8.4-10.2); Carbon Dioxide 15 mmol/L (22-30); Chloride 117 mmol/L (98-107); Estimated Glomerular Filt Rate 15; Glucose 121 mg/dL (65-105); Magnesium 1.2 mg/dL (1.6-2.3); Potassium 4.6 mmol/L (3.4-5.0); Sodium 138 mmol/L (137-145); Uric Acid 5.8 mg/dL (2.5-7.5)
[2019-10-27 06:26] LABS: Erythrocyte Sedimentation Rate 94 mm/hr (0-20)
[2019-10-27 06:35] LABS: Aspartate Amino Transferase 1332 U/L (14-36)
[2019-10-27 07:36] LABS: Creatine Kinase 14727 U/L (30-135)
[2019-10-27 07:43] LABS: Glucose Point of Care 96 (65-105)
[2019-10-27 08:09] VITALS: PULSE 70
[2019-10-27] MEDS: METOPROLOL TARTRATE 12.5 MG TABLET PO ×2 (08:09→20:29)
[2019-10-27] MEDS: levETIRAcetam 500 MG TABLET PO ×2 (08:09→20:29)
[2019-10-27] MEDS: CYANOCOBALAMIN 1,000 MCG TABLET 1000 MCG PO (08:09)
[2019-10-27] MEDS: CALCIUM CARBONATE (OSCAL) 500 MG TABLET PO (08:09)
[2019-10-27] MEDS: PANTOPRAZOLE 40 MG TABLET PO (08:09)
[2019-10-27] MEDS: FLUTICASONE PROP 220 MCG (*SP) 12 GM INHALER 2 PUFF INHALATION ×2 (08:57→20:18)
[2019-10-27] MEDS: SODIUM BICARBONATE TAB 325 MG TABLET PO ×2 (09:51→16:20)
[2019-10-27] MEDS: MAGNESIUM OXIDE 400 MG TABLET PO ×2 (09:51→16:20)
[2019-10-27 12:02] LABS: Glucose Point of Care 121 (65-105)
--- NOTE | 2019-10-27 12:31 | PM.IMPN ---
Progress Note: A&P Assessment and Plan (1) Acute renal failure superimposed on stage 3 chronic kidney disease: Code(s): N17.9 - Acute kidney failure, unspecified; N18.3 - Chronic kidney disease, stage 3 (moderate) Status: Acute Assessment and Plan: At presentation, Creatinine 3.9. Baseline appears to be be 1.6. Cr appears to be trending down and today is 3.1. This acute change is likely due to dehydration as well as rhabdomyolysis. Hold losartan, metformin, and glipizide Continue IV fluids with normal saline at 100 mL/hour. Continue to monitor BMP. (2) Metabolic acidosis: Code(s): E87.2 - Acidosis Status: Acute Assessment and Plan: Patient has non-anion gap metabolic acidosis, likely due to kidney disease. Continue IV fluids with normal saline at 100 mL/hour. Begin PO Sodium bicarb 650 mg BID Continue to monitor CMP (3) Rhabdomyolysis: Qualifiers: Encounter type: initial encounter Code(s): M62.82 - Rhabdomyolysis Status: Acute Assessment and Plan: The patient's generalized weakness is likely due to rhabdomyolysis. However the initial cause of the rhabdomyolysis is unclear. Patient states that she was on the floor about 30 minutes prior to being assisted up. CK at presentation was >[id number] [place] [id number]. Urine output is mildly decreased but appears to be improving. ESR elevated at 94 and CRP elevated at 2.9. Will continue patient on normal saline at 100 mL/hour. Continue to monitor CK daily. Continue to hold atorvastatin. Monitor electrolytes Monitor I&O. (4) UTI (urinary tract infection): Code(s): N39.0 - Urinary tract infection, site not specified Status: Acute Assessment and Plan: Urine culture reveals Enterococcus susceptible to Ampicillin and Vancomycin. Will initiate Ampicillin given patients CKD. (5) Type 2 diabetes mellitus with hyperglycemia: Code(s): E11.65 - Type 2 diabetes mellitus with hyperglycemia Status: Acute Assessment and Plan: Blood sugar evaluated today and stable at 121. Continue to hold metformin and glipizide given the patient's acute on chronic CKD Continue moderate dose SSI, accuchecks, and hypoglycemia protocol. Will obtain repeat A1c as last known A1c is from 05/2018 (6) Generalized weakness: Code(s): R53.1 - Weakness Status: Acute Assessment and Plan: Patient had been endorsing weakness for approximately 3 days prior to admission. She reports she has been less active. Specifically notes weakness in her legs. PT and OT ordered to evaluate and treat. Recommendations are greatly appreciated. (7) Transaminitis: Code(s): R74.0 - Nonspecific elevation of levels of transaminase and lactic acid dehydrogenase [LDH] Status: Acute Assessment and Plan: The patient does have a history of mild elevated transaminases in the past. Liver enzymes are elevated but appear to be trending down. Hepatitis panel is negative. May be related to rhabdomyolysis. Continue to monitor liver enzymes Consider RUQ US if transaminitis does not improve. (8) Anticoagulated by anticoagulation treatment: Code(s): Z79.01 - assisted (current) use of anticoagulants Status: Acute Assessment and Plan: Patient takes Warfarin for history of multiple strokes. She was seen in the ED on 10/09/19 due to bleeding. She had a fall and was bleeding from her left palm. At the time, her INR was elevated at 5.9 and Warfarin was held. She denies any active bleeding today. INR is within therapeutic range on current home dose. Monitor daily INR. Continue home dose Warfarin. (9) Diastolic dysfunction: Code(s): I51.89 - Other ill-defined heart diseases Status: Acute Assessment and Plan: Per chart review, patient has history of diastolic dysfunction since 2013 with preserved EF of 65%. No signs of flui
[2019-10-27 14:00] VITALS: BP 120/52; PULSE 64; RESP 18; TEMP 36.1; O2SAT 100
[2019-10-27] MEDS: WARFARIN (*PBKC) 1 MG TABLET PO (16:20)
[2019-10-27 16:23] LABS: Glucose Point of Care 178 (65-105)
[2019-10-27] MEDS: AMPICILLIN 1 GM/NS 50 ML 1 GM/50 ML BAG IVPB ×2 (17:20→23:12)
[2019-10-27] MEDS: SACCHAROMYCES BOULARDII 250 MG CAPSULE PO (17:41)
[2019-10-27 20:24] VITALS: BP 150/59; PULSE 64; RESP 14; TEMP 36.3; O2SAT 99
[2019-10-27] MEDS: ASPIRIN 81 MG ENTERIC TABLET PO (20:28)
[2019-10-27 20:29] VITALS: PULSE 64
[2019-10-27] MEDS: LATANOPROST 0.005% OP SOLN 2.5 ML BTL 1 DROP EACH EYE (20:31)
[2019-10-27] MEDS: LORAZEPAM 0.5 MG TABLET PO (20:32)
[2019-10-27 20:41] LABS: Glucose Point of Care 199 (65-105)
[2019-10-28] MEDS: SODIUM CHLORIDE 0.9% IV 1,000 ML 100 ML IV CONT ×3 (00:58→22:38)
[2019-10-28 04:52] VITALS: BP 149/61; PULSE 67; RESP 18; TEMP 36.5; O2SAT 96
[2019-10-28] MEDS: AMPICILLIN 1 GM/NS 50 ML 1 GM/50 ML BAG IVPB ×4 (05:05→23:08)
[2019-10-28 06:19] LABS: Hematocrit 35.1 % (37.0-47.0); Hemoglobin 11.2 g/dL (12.0-15.0); Immature Platelet Fraction Pct 9.7 % (0.9-11.2); Mean Corpuscular HGB Conc 31.9 g/dl (32-36); Mean Corpuscular Hemoglobin 29.6 pg (26-34); Mean Corpuscular Volume 92.6 fl (80-100); Mean Platelet Volume 13.8 fl (7.4-10.4); Platelet Count Result 166 k/mm3 (150-375); Red Blood Count 3.79 M/mm3 (4.2-5.4); Red Cell Distribution Width 15.8 % (11.5-14.5); White Blood Count 9.6 K/mm3 (4.5-10.0)
[2019-10-28 06:28] LABS: Alanine Aminotransferase 463 U/L (4-35); Albumin Level 2.4 g/dL (3.5-5.1); Alkaline Phosphatase 253 U/L (38-126); Bilirubin,Total 1.1 mg/dL (0.2-1.3); Blood Urea Nitrogen 43 mg/dL (7-17); CRP 2.7 mg/dL (<1.0); Calcium 8.3 mg/dL (8.4-10.2); Carbon Dioxide 17 mmol/L (22-30); Chloride 117 mmol/L (98-107); Estimated Glomerular Filt Rate 21; Glucose 129 mg/dL (65-105); Sodium 139 mmol/L (137-145)
[2019-10-28 07:07] LABS: Aspartate Amino Transferase 1119 U/L (14-36)
[2019-10-28 07:20] LABS: Erythrocyte Sedimentation Rate 54 mm/hr (0-20)
[2019-10-28 07:21] LABS: Creatine Kinase 11037 U/L (30-135)
[2019-10-28 08:03] LABS: Glucose Point of Care 128 (65-105)
[2019-10-28] MEDS: SERTRALINE HCL 25 MG TABLET PO (08:03)
[2019-10-28] MEDS: MAGNESIUM OXIDE 400 MG TABLET PO ×2 (08:03→16:23)
[2019-10-28] MEDS: CALCIUM CARBONATE (OSCAL) 500 MG TABLET PO (08:04)
[2019-10-28] MEDS: CYANOCOBALAMIN 1,000 MCG TABLET 1000 MCG PO (08:04)
[2019-10-28] MEDS: levETIRAcetam 500 MG TABLET PO ×2 (08:04→20:12)
[2019-10-28] MEDS: METOPROLOL TARTRATE 12.5 MG TABLET PO ×2 (08:04→20:12)
[2019-10-28] MEDS: SACCHAROMYCES BOULARDII 250 MG CAPSULE PO ×2 (08:04→16:22)
[2019-10-28] MEDS: PANTOPRAZOLE 40 MG TABLET PO (08:04)
[2019-10-28] MEDS: SODIUM BICARBONATE TAB 650 MG TABLET PO ×2 (08:05→16:22)
[2019-10-28] MEDS: FLUTICASONE PROP 220 MCG (*SP) 12 GM INHALER 2 PUFF INHALATION ×2 (10:01→19:19)
[2019-10-28 11:04] LABS: IFOB Positive Control Positive; Immunochemical Fecal Occult Bl Negative (N)
[2019-10-28 11:41] LABS: Glucose Point of Care 158 (65-105)
[2019-10-28 14:00] VITALS: BP 140/68; PULSE 70; RESP 18; TEMP 36.2; O2SAT 98
--- NOTE | 2019-10-28 15:12 | P.PNIM_ITS ---
Progress Note: A&P Assessment and Plan (1) Acute renal failure superimposed on stage 3 chronic kidney disease: Code(s): N17.9 - Acute kidney failure, unspecified; N18.3 - Chronic kidney disease, stage 3 (moderate) Status: Acute Assessment and Plan: At presentation, Creatinine 3.9. Baseline appears to be be 1.6. Cr is trending down and today is 2.3 This acute change is likely due to dehydration as well as rhabdomyolysis. * Hold losartan, metformin, and glipizide * Continue IV fluids with normal saline at 100 mL/hour. * Continue to monitor BMP. (2) Metabolic acidosis: Code(s): E87.2 - Acidosis Status: Acute Assessment and Plan: Patient has non-anion gap metabolic acidosis, likely due to kidney disease. * Continue IV fluids with normal saline at 100 mL/hour. * Continue PO Sodium bicarb 650 mg BID * Continue to monitor CMP (3) Rhabdomyolysis: Qualifiers: Encounter type: initial encounter Code(s): M62.82 - Rhabdomyolysis Status: Acute Assessment and Plan: The patient's generalized weakness is likely due to rhabdomyolysis. However the initial cause of the rhabdomyolysis is unclear. Patient states that she was on the floor about 30 minutes prior to being assisted up. CK at presentation was >[id number]. It is slowly trending down and today is [id number]. Urine output is mildly decreased but appears to be improving. ESR and CRP elevated but trending down * Will continue patient on normal saline at 100 mL/hour. * Continue to monitor CK daily. * Continue to hold atorvastatin. * Monitor electrolytes * Monitor I&O. * Trend ESR and CRP (4) UTI (urinary tract infection): Code(s): N39.0 - Urinary tract infection, site not specified Status: Acute Assessment and Plan: Urine culture reveals Enterococcus susceptible to Ampicillin and Vancomycin. Patient is afebrile and WBC wnl. * Continue Ampicillin given patients CKD. Initiated on 10/28/19. (5) Type 2 diabetes mellitus with hyperglycemia: Code(s): E11.65 - Type 2 diabetes mellitus with hyperglycemia Status: Acute Assessment and Plan: Blood sugar evaluated today and stable at 166. Ac1 is 8.0 (10/28/19) * Continue to hold metformin and glipizide given the patient's acute on chronic CKD * Continue moderate dose SSI, accuchecks, and hypoglycemia protocol. (6) Generalized weakness: Code(s): R53.1 - Weakness Status: Acute Assessment and Plan: Patient had been endorsing weakness for approximately 3 days prior to admission. She reports she has been less active. Specifically notes weakness in her legs. * PT and OT ordered to evaluate and treat. Recommendations are greatly appreciated. * She is being evaluated for TRC. (7) Transaminitis: Code(s): R74.0 - Nonspecific elevation of levels of transaminase and lactic acid dehydrogenase [LDH] Status: Acute Assessment and Plan: The patient does have a history of mild elevated transaminases in the past. Liver enzymes are elevated but trending down. Hepatitis panel is negative. May be related to rhabdomyolysis. * Continue to monitor liver enzymes * Consider RUQ US if transaminitis does not improve. (8) Anticoagulated by anticoagulation treatment: Code(s): Z79.01 - exterminator termite (current) use of anticoagulants Status: Acute Assessment and Plan: Patient takes Warfarin for history of multiple strokes. She was seen in the ED on 10/09/19 due to bleeding. She had a fall and was
--- NOTE | 2019-10-28 15:12 | PM.IMPN ---
Progress Note: A&P Assessment and Plan (1) Acute renal failure superimposed on stage 3 chronic kidney disease: Code(s): N17.9 - Acute kidney failure, unspecified; N18.3 - Chronic kidney disease, stage 3 (moderate) Status: Acute Assessment and Plan: At presentation, Creatinine 3.9. Baseline appears to be be 1.6. Cr is trending down and today is 2.3 This acute change is likely due to dehydration as well as rhabdomyolysis. Hold losartan, metformin, and glipizide Continue IV fluids with normal saline at 100 mL/hour. Continue to monitor BMP. (2) Metabolic acidosis: Code(s): E87.2 - Acidosis Status: Acute Assessment and Plan: Patient has non-anion gap metabolic acidosis, likely due to kidney disease. Continue IV fluids with normal saline at 100 mL/hour. Continue PO Sodium bicarb 650 mg BID Continue to monitor CMP (3) Rhabdomyolysis: Qualifiers: Encounter type: initial encounter Code(s): M62.82 - Rhabdomyolysis Status: Acute Assessment and Plan: The patient's generalized weakness is likely due to rhabdomyolysis. However the initial cause of the rhabdomyolysis is unclear. Patient states that she was on the floor about 30 minutes prior to being assisted up. CK at presentation was >[id number]. It is slowly trending down and today is [id number]. Urine output is mildly decreased but appears to be improving. ESR and CRP elevated but trending down Will continue patient on normal saline at 100 mL/hour. Continue to monitor CK daily. Continue to hold atorvastatin. Monitor electrolytes Monitor I&O. Trend ESR and CRP (4) UTI (urinary tract infection): Code(s): N39.0 - Urinary tract infection, site not specified Status: Acute Assessment and Plan: Urine culture reveals Enterococcus susceptible to Ampicillin and Vancomycin. Patient is afebrile and WBC wnl. Continue Ampicillin given patients CKD. Initiated on 10/28/19. (5) Type 2 diabetes mellitus with hyperglycemia: Code(s): E11.65 - Type 2 diabetes mellitus with hyperglycemia Status: Acute Assessment and Plan: Blood sugar evaluated today and stable at 166. Ac1 is 8.0 (10/28/19) Continue to hold metformin and glipizide given the patient's acute on chronic CKD Continue moderate dose SSI, accuchecks, and hypoglycemia protocol. (6) Generalized weakness: Code(s): R53.1 - Weakness Status: Acute Assessment and Plan: Patient had been endorsing weakness for approximately 3 days prior to admission. She reports she has been less active. Specifically notes weakness in her legs. PT and OT ordered to evaluate and treat. Recommendations are greatly appreciated. She is being evaluated for TRC. (7) Transaminitis: Code(s): R74.0 - Nonspecific elevation of levels of transaminase and lactic acid dehydrogenase [LDH] Status: Acute Assessment and Plan: The patient does have a history of mild elevated transaminases in the past. Liver enzymes are elevated but trending down. Hepatitis panel is negative. May be related to rhabdomyolysis. Continue to monitor liver enzymes Consider RUQ US if transaminitis does not improve. (8) Anticoagulated by anticoagulation treatment: Code(s): Z79.01 - [facility] (current) use of anticoagulants Status: Acute Assessment and Plan: Patient takes Warfarin for history of multiple strokes. She was seen in the ED on 10/09/19 due to bleeding. She had a fall and was bleeding from her left palm. At the time, her INR was elevated at 5.9 and Warfarin was held. She denies any active bleeding today. INR is within therapeutic range on current home dose. Monitor daily INR. Continue home dose Warfarin. (9) Diastolic dysfunction: Code(s): I51.89 - Other ill-defined heart diseases Status: Acute Assessment and Plan: Per chart review, patient has history of diasto
--- NOTE | 2019-10-28 15:30 | PC.NURSE ---
Pt called out for bedpan. Pt previously walked with therapy and able to use bathroom. RN informed pt that it was best for her to ambulated to the bathroom as it would increase her strength. Pt became upset but ultimately ambulated to the bathroom with walker and gait belt. Pt called family members stating that she wants to talk to hospital administration because some people here act like they own the place . ISA Brink notified and was able to come to bedside to speak with pt. Pt currently calm with no other complaints.
[2019-10-28] MEDS: WARFARIN (*PBKC) 1 MG TABLET PO (16:23)
[2019-10-28 16:25] LABS: Glucose Point of Care 212 (65-105)
[2019-10-28] MEDS: INSULIN ASPART (*BKC) 100 UNITS/ML SUB-Q (16:25)
[2019-10-28 19:37] VITALS: BP 152/70; PULSE 66; RESP 16; TEMP 36.2; O2SAT 99
[2019-10-28 20:12] VITALS: PULSE 64
[2019-10-28] MEDS: ASPIRIN 81 MG ENTERIC TABLET PO (20:12)
[2019-10-28] MEDS: LORAZEPAM 0.5 MG TABLET PO (20:12)
[2019-10-28] MEDS: LATANOPROST 0.005% OP SOLN 2.5 ML BTL 1 DROP EACH EYE (20:13)
[2019-10-28 20:33] LABS: Glucose Point of Care 173 (65-105)
[2019-10-29] VITALS (8 sets, daily range): BP systolic 135–146; BP diastolic 47–59; PULSE 60–69; RESP 14–16; TEMP 36.1–36.3; O2SAT 96–100
[2019-10-29] MEDS: AMPICILLIN 1 GM/NS 50 ML 1 GM/50 ML BAG IVPB ×4 (05:27→23:01)
[2019-10-29 06:02] LABS: Hematocrit 35.1 % (37.0-47.0); Hemoglobin 11.2 g/dL (12.0-15.0); Immature Platelet Fraction Pct 9.9 % (0.9-11.2); Mean Corpuscular HGB Conc 31.9 g/dl (32-36); Mean Corpuscular Hemoglobin 29.7 pg (26-34); Mean Corpuscular Volume 93.1 fl (80-100); Mean Platelet Volume 13.2 fl (7.4-10.4); Platelet Count Result 168 k/mm3 (150-375); Red Blood Count 3.77 M/mm3 (4.2-5.4); Red Cell Distribution Width 15.8 % (11.5-14.5); White Blood Count 9.1 K/mm3 (4.5-10.0)
[2019-10-29 06:03] LABS: INR 2.4; Prothrombin Time 25.8 Seconds (11.1-14.7)
[2019-10-29 06:33] LABS: Alanine Aminotransferase 453 U/L (4-35); Albumin Level 2.3 g/dL (3.5-5.1); Alkaline Phosphatase 248 U/L (38-126); Bilirubin,Total 1.3 mg/dL (0.2-1.3); Blood Urea Nitrogen 37 mg/dL (7-17); Calcium 8.1 mg/dL (8.4-10.2); Carbon Dioxide 18 mmol/L (22-30); Chloride 117 mmol/L (98-107); Creatine Kinase 7363 U/L (30-135); Estimated Glomerular Filt Rate 29; Glucose 122 mg/dL (65-105); Magnesium 0.9 mg/dL (1.6-2.3); Sodium 139 mmol/L (137-145)
[2019-10-29 06:39] LABS: Aspartate Amino Transferase 869 U/L (14-36)
[2019-10-29 07:50] LABS: Glucose Point of Care 117 (65-105)
[2019-10-29] MEDS: CYANOCOBALAMIN 1,000 MCG TABLET 1000 MCG PO (08:37)
[2019-10-29] MEDS: SACCHAROMYCES BOULARDII 250 MG CAPSULE PO ×2 (08:37→16:24)
[2019-10-29] MEDS: levETIRAcetam 500 MG TABLET PO ×2 (08:37→20:17)
[2019-10-29] MEDS: SODIUM BICARBONATE TAB 650 MG TABLET PO ×3 (08:37→16:24)
[2019-10-29] MEDS: MAGNESIUM OXIDE 400 MG TABLET PO (08:37)
[2019-10-29] MEDS: CALCIUM CARBONATE (OSCAL) 500 MG TABLET PO (08:37)
[2019-10-29] MEDS: PANTOPRAZOLE 40 MG TABLET PO (08:37)
[2019-10-29] MEDS: SERTRALINE HCL 25 MG TABLET PO (08:37)
[2019-10-29] MEDS: METOPROLOL TARTRATE 12.5 MG TABLET PO ×2 (08:37→20:17)
[2019-10-29] MEDS: FLUTICASONE PROP 220 MCG (*SP) 12 GM INHALER 2 PUFF INHALATION ×2 (08:57→19:37)
[2019-10-29] MEDS: SODIUM CHLORIDE 0.9% IV 1,000 ML 100 ML IV CONT ×2 (09:26→20:19)
[2019-10-29] MEDS: MAGNESIUM SULF 4 GM/WATER100ML 4 GM/100 ML BAG IVPB (10:47)
[2019-10-29 15:06] LABS: Alveolar/Arterial O2 Gradient 26.7 mmHg; Base Excess ABG -8.8 mEq/l (+/-2.0); Fractional Inspired Oxygen 21 %; HCO3 ABG 15.3 mEq/l (22.0-26.0); Oxygen Content ABG 16.9 %vol (16.0-22.0); Oxygen Saturation ABG 96.7 % (95.0-100.0); Oxyhemoglobin 95.5 % THb (90.0-100.0); PO2 ABG 89.5 mmHg (80.0-100.0); PO2 FiO2 Ratio Arterial Blood 4.26 %; Site Drawn RIGHT BRACHIAL; Total Hemoglobin 12.5 g/dL (12.0-18.0); pH ABG 7.354 (7.350-7.450)
[2019-10-29 15:07] LABS: Device ROOM AIR
[2019-10-29 15:21] LABS: Potassium 4.9 mmol/L (3.4-5.0)
[2019-10-29 15:24] LABS: Magnesium 1.9 mg/dL (1.6-2.3)
--- NOTE | 2019-10-29 15:45 | P.PNIM_ITS ---
Progress Note: A&P Assessment and Plan (1) Metabolic acidosis: Code(s): E87.2 - Acidosis Status: Acute Assessment and Plan: Patient has non-anion gap metabolic acidosis, likely due to kidney disease. * Continue IV fluids with normal saline at 100 mL/hour. * Transition to TID Sodium bicarb 650 mg PO as acidosis persists * Order ABG * Continue to monitor CMP (2) Rhabdomyolysis: Qualifiers: Encounter type: initial encounter Code(s): M62.82 - Rhabdomyolysis Status: Acute Assessment and Plan: The patient's generalized weakness is likely due to rhabdomyolysis. However the initial cause of the rhabdomyolysis is unclear. Patient states that she was on the floor about 30 minutes prior to being assisted up. CK at presentation was >561870. It is slowly trending down and today is 7363. Urine output was mildly decreased but is improving. * Will continue patient on normal saline at 100 mL/hour. * Continue to monitor CK daily. * Continue to hold atorvastatin. * Monitor electrolytes * Monitor I&O. * Trend ESR and CRP (3) Acute renal failure superimposed on stage 3 chronic kidney disease: Code(s): N17.9 - Acute kidney failure, unspecified; N18.3 - Chronic kidney disease, stage 3 (moderate) Status: Acute Assessment and Plan: At presentation, Creatinine 3.9. Baseline appears to be be 1.6. Cr is trending down and today is 1.7 This acute change is likely due to dehydration as well as rhabdomyolysis. * Hold losartan, metformin, and glipizide * Continue IV fluids with normal saline at 100 mL/hour. * Continue to monitor BMP. (4) UTI (urinary tract infection): Code(s): N39.0 - Urinary tract infection, site not specified Status: Acute Assessment and Plan: Urine culture reveals Enterococcus susceptible to Ampicillin and Vancomycin. Patient is afebrile and WBC wnl. * Continue Ampicillin given patients CKD. Initiated on 10/27/19. (5) Hypomagnesemia: Code(s): E83.42 - Hypomagnesemia Status: Acute Assessment and Plan: Patient has hypomagnesemia that persists despite PO Magnesium Oxide. This is likely due to patients acidosis. Mag today is low at 0.9. * Order IV Magnesium Sulfate. * Recheck magnesium level 6 hours after IV magnesium sulfate. * Continue to monitor. (6) Type 2 diabetes mellitus with hyperglycemia: Code(s): E11.65 - Type 2 diabetes mellitus with hyperglycemia Status: Acute Assessment and Plan: Blood sugar evaluated today and stable at 168. Ac1 is 8.0 (10/28/19) * Continue to hold metformin and glipizide given the patient's acute on chronic CKD. Plan to resume soon as BECKIE is improving and patient is approaching baseline. * Continue moderate dose SSI, accuchecks, and hypoglycemia protocol. (7) Generalized weakness: Code(s): R53.1 - Weakness Status: Acute Assessment and Plan: Patient had been endorsing weakness for approximately 3 days prior to admission. She reports she has been less active. Specifically notes weakness in her legs. * PT and OT ordered to evaluate and treat. Recommendations are greatly appreciated. * She has been accepted for placement to [facility] and will transition there upon discharge. (8) Transaminitis: Code(s): R74.0 - Nonspecific elevation of levels of transaminase and lactic acid de hydrogenase [LDH] Status: Acute Assessment and Plan: The patient does have a history of mildly elevated transaminases in the pas
--- NOTE | 2019-10-29 15:45 | PM.IMPN ---
Progress Note: A&P Assessment and Plan (1) Metabolic acidosis: Code(s): E87.2 - Acidosis Status: Acute Assessment and Plan: Patient has non-anion gap metabolic acidosis, likely due to kidney disease. Continue IV fluids with normal saline at 100 mL/hour. Transition to TID Sodium bicarb 650 mg PO as acidosis persists Order ABG Continue to monitor CMP (2) Rhabdomyolysis: Qualifiers: Encounter type: initial encounter Code(s): M62.82 - Rhabdomyolysis Status: Acute Assessment and Plan: The patient's generalized weakness is likely due to rhabdomyolysis. However the initial cause of the rhabdomyolysis is unclear. Patient states that she was on the floor about 30 minutes prior to being assisted up. CK at presentation was >[id number]. It is slowly trending down and today is 7363. Urine output was mildly decreased but is improving. Will continue patient on normal saline at 100 mL/hour. Continue to monitor CK daily. Continue to hold atorvastatin. Monitor electrolytes Monitor I&O. Trend ESR and CRP (3) Acute renal failure superimposed on stage 3 chronic kidney disease: Code(s): N17.9 - Acute kidney failure, unspecified; N18.3 - Chronic kidney disease, stage 3 (moderate) Status: Acute Assessment and Plan: At presentation, Creatinine 3.9. Baseline appears to be be 1.6. Cr is trending down and today is 1.7 This acute change is likely due to dehydration as well as rhabdomyolysis. Hold losartan, metformin, and glipizide Continue IV fluids with normal saline at 100 mL/hour. Continue to monitor BMP. (4) UTI (urinary tract infection): Code(s): N39.0 - Urinary tract infection, site not specified Status: Acute Assessment and Plan: Urine culture reveals Enterococcus susceptible to Ampicillin and Vancomycin. Patient is afebrile and WBC wnl. Continue Ampicillin given patients CKD. Initiated on 10/27/19. (5) Hypomagnesemia: Code(s): E83.42 - Hypomagnesemia Status: Acute Assessment and Plan: Patient has hypomagnesemia that persists despite PO Magnesium Oxide. This is likely due to patients acidosis. Mag today is low at 0.9. Order IV Magnesium Sulfate. Recheck magnesium level 6 hours after IV magnesium sulfate. Continue to monitor. (6) Type 2 diabetes mellitus with hyperglycemia: Code(s): E11.65 - Type 2 diabetes mellitus with hyperglycemia Status: Acute Assessment and Plan: Blood sugar evaluated today and stable at 168. Ac1 is 8.0 (10/28/19) Continue to hold metformin and glipizide given the patient's acute on chronic CKD. Plan to resume soon as BECKIE is improving and patient is approaching baseline. Continue moderate dose SSI, accuchecks, and hypoglycemia protocol. (7) Generalized weakness: Code(s): R53.1 - Weakness Status: Acute Assessment and Plan: Patient had been endorsing weakness for approximately 3 days prior to admission. She reports she has been less active. Specifically notes weakness in her legs. PT and OT ordered to evaluate and treat. Recommendations are greatly appreciated. She has been accepted for placement to [facility] and will transition there upon discharge. (8) Transaminitis: Code(s): R74.0 - Nonspecific elevation of levels of transaminase and lactic acid dehydrogenase [LDH] Status: Acute Assessment and Plan: The patient does have a history of mildly elevated transaminases in the past. Liver enzymes are elevated but trending down. Hepatitis panel is negative. May be related to rhabdomyolysis. Continue to monitor liver enzymes Consider RUQ US if transaminitis does not improve. (9) Anticoagulated by anticoagulation treatment: Code(s): Z79.01 - halfway (current) use of anticoagulants Status: Acute Assessment and Plan: Patient takes Warfarin for history of multiple strokes. She was seen i
[2019-10-29 16:23] LABS: Glucose Point of Care 153 (65-105)
[2019-10-29] MEDS: WARFARIN (*PBKC) 1 MG TABLET PO (16:24)
[2019-10-29] MEDS: ASPIRIN 81 MG ENTERIC TABLET PO (20:17)
[2019-10-29] MEDS: LATANOPROST 0.005% OP SOLN 2.5 ML BTL 1 DROP EACH EYE (20:18)
[2019-10-29] MEDS: LORAZEPAM 0.5 MG TABLET PO (20:18)
[2019-10-29 20:29] LABS: Glucose Point of Care 187 (65-105)
[2019-10-30] MEDS: AMPICILLIN 1 GM/NS 50 ML 1 GM/50 ML BAG IVPB ×4 (05:17→23:26)
[2019-10-30 05:59] VITALS: BP 127/48; PULSE 54; RESP 16; TEMP 36.1; O2SAT 98
[2019-10-30] MEDS: SODIUM CHLORIDE 0.9% IV 1,000 ML 100 ML IV CONT (06:49)
[2019-10-30 06:54] LABS: Hematocrit 35.6 % (37.0-47.0); Hemoglobin 11.2 g/dL (12.0-15.0); Immature Platelet Fraction Pct 9.1 % (0.9-11.2); Mean Corpuscular HGB Conc 31.5 g/dl (32-36); Mean Corpuscular Hemoglobin 29.2 pg (26-34); Platelet Count Result 191 k/mm3 (150-375); Red Blood Count 3.83 M/mm3 (4.2-5.4); Red Cell Distribution Width 15.9 % (11.5-14.5); White Blood Count 10.9 K/mm3 (4.5-10.0)
[2019-10-30 07:14] LABS: Alanine Aminotransferase 433 U/L (4-35); Albumin Level 2.5 g/dL (3.5-5.1); Alkaline Phosphatase 291 U/L (38-126); Aspartate Amino Transferase 698 U/L (14-36); Bilirubin,Total 1.4 mg/dL (0.2-1.3); Blood Urea Nitrogen 35 mg/dL (7-17); CRP 1.8 mg/dL (<1.0); Calcium 8.4 mg/dL (8.4-10.2); Carbon Dioxide 17 mmol/L (22-30); Chloride 117 mmol/L (98-107); Estimated Glomerular Filt Rate 37; Glucose 147 mg/dL (65-105); Magnesium 1.7 mg/dL (1.6-2.3); Sodium 139 mmol/L (137-145)
[2019-10-30 08:01] LABS: Creatine Kinase 4082 U/L (30-135)
[2019-10-30 08:11] LABS: Bilirubin Indirect 0.8 mg/dL (0-1.1)
[2019-10-30 08:14] LABS: Glucose Point of Care 141 (65-105)
[2019-10-30] MEDS: PANTOPRAZOLE 40 MG TABLET PO (08:45)
[2019-10-30] MEDS: SACCHAROMYCES BOULARDII 250 MG CAPSULE PO ×2 (08:45→18:21)
[2019-10-30] MEDS: CYANOCOBALAMIN 1,000 MCG TABLET 1000 MCG PO (08:45)
[2019-10-30] MEDS: levETIRAcetam 500 MG TABLET PO ×2 (08:45→21:11)
[2019-10-30] MEDS: SERTRALINE HCL 25 MG TABLET PO (08:45)
[2019-10-30] MEDS: CALCIUM CARBONATE (OSCAL) 500 MG TABLET PO (08:45)
[2019-10-30 08:46] VITALS: PULSE 58
[2019-10-30] MEDS: METOPROLOL TARTRATE 12.5 MG TABLET PO ×2 (08:46→21:19)
[2019-10-30] MEDS: SODIUM BICARBONATE TAB 650 MG TABLET PO (08:47)
[2019-10-30] MEDS: FLUTICASONE PROP 220 MCG (*SP) 12 GM INHALER 2 PUFF INHALATION ×2 (08:50→20:48)
[2019-10-30 10:34] LABS: Erythrocyte Sedimentation Rate 66 mm/hr (0-20)
--- NOTE | 2019-10-30 11:54 | PM.IMPN ---
Progress Note: A&P Assessment and Plan (1) Metabolic acidosis: Code(s): E87.2 - Acidosis Status: Acute Assessment and Plan: Patient has a hyperchloremic non-anion gap metabolic acidosis, likely due to kidney disease from rhabdomyolysis. ABG was ordered yesterday and revealed pH 7.34, pO2 89.5, pCO2 28, and HCO3 15.3. The pt was on sodium bicarb tablets but her metabolic acidosis has persisted. Discussed with Dr. Price and will switch to D5W with sodium bicarb and monitor blood sugars closely Continue to monitor CMP (2) Rhabdomyolysis: Qualifiers: Encounter type: initial encounter Code(s): M62.82 - Rhabdomyolysis Status: Acute Assessment and Plan: The patient's generalized weakness is likely due to rhabdomyolysis. However the initial cause of the rhabdomyolysis is unclear. Patient states that she was on the floor about 30 minutes prior to being assisted up. CK at presentation was >[id number]. It is slowly trending down and today is 4082. Urine output was mildly decreased but is improving. Will continue IV fluids but will switch to D5W with sodium bicarb Continue to monitor CK daily Continue to hold atorvastatin Monitor electrolytes Monitor I&O (3) Acute renal failure superimposed on stage 3 chronic kidney disease: Code(s): N17.9 - Acute kidney failure, unspecified; N18.3 - Chronic kidney disease, stage 3 (moderate) Status: Acute Assessment and Plan: At presentation, Creatinine 3.9. Baseline appears to be be 1.6. Cr is trending down and today is 1.4. BECKIE was likely due to dehydration as well as rhabdomyolysis. The pt has a hyperchloremic, non-anion gap metabolic acidosis. Hold losartan, metformin, and glipizide Continue IV fluids, will switch to D5W with sodium bicarb Continue to monitor (4) UTI (urinary tract infection): Code(s): N39.0 - Urinary tract infection, site not specified Status: Acute Assessment and Plan: Urine culture reveals Enterococcus susceptible to Ampicillin and Vancomycin. Patient is afebrile and WBC wnl. Continue Ampicillin given patients CKD. Initiated on 10/27/19. (5) Hypomagnesemia: Code(s): E83.42 - Hypomagnesemia Status: Acute Assessment and Plan: Patient has hypomagnesemia that persists despite PO Magnesium Oxide. This is likely due to patients acidosis. Magnesium was 1.7 today. Continue to monitor (6) Type 2 diabetes mellitus with hyperglycemia: Code(s): E11.65 - Type 2 diabetes mellitus with hyperglycemia Status: Acute Assessment and Plan: Blood sugars were reviewed and are acceptable. Ac1 is 8.0 (10/28/19) Continue to hold metformin and glipizide given the patient's acute on chronic CKD. Plan to resume soon as BECKIE is improving and patient is approaching baseline. Continue moderate dose SSI, ACHS, and hypoglycemia protocol. (7) Generalized weakness: Code(s): R53.1 - Weakness Status: Acute Assessment and Plan: Patient had been endorsing weakness for approximately 3 days prior to admission. She reports she has been less active. Specifically notes weakness in her legs. PT and OT ordered to evaluate and treat. Recommendations are greatly appreciated. Plan for TRC at discharge (8) Transaminitis: Code(s): R74.0 - Nonspecific elevation of levels of transaminase and lactic acid dehydrogenase [LDH] Status: Acute Assessment and Plan: The patient does have a history of mildly elevated transaminases in the past. AST and ALT are elevated but continue to trend down. ALP was mildly increased today to 291 from 248. Total bilirubin was slightly increased to 1.4. Indirect bilirubin was WNL at 0.8 and direct bilirubin 0.0. She denies abdominal pain, nausea, and vomiting. Hepatitis panel is negative. Will order RUQ US today Continue to monitor (9) Anticoagulated by anticoagulation treatment: Betzy
[2019-10-30 14:00] VITALS: BP 171/58; PULSE 64; RESP 20; TEMP 36.6; O2SAT 99
[2019-10-30] MEDS: SODIUM BICARBONATE 8.4% 150 MEQ in DEXTROSE 5% 1,000 ML 950 ML 100 MEQ IV CONT (15:56)
[2019-10-30 16:37] LABS: Glucose Point of Care 115 (65-105)
[2019-10-30] MEDS: WARFARIN (*PBKC) 1 MG TABLET PO (18:21)
[2019-10-30 19:21] VITALS: BP 150/58; PULSE 70; RESP 16; TEMP 36.3; O2SAT 99
[2019-10-30 20:50] VITALS: PULSE 81; RESP 20
[2019-10-30] MEDS: LATANOPROST 0.005% OP SOLN 2.5 ML BTL 1 DROP EACH EYE (21:10)
[2019-10-30] MEDS: DOCUSATE SODIUM 100 MG CAPSULE PO (21:10)
[2019-10-30] MEDS: ASPIRIN 81 MG ENTERIC TABLET PO (21:10)
[2019-10-30 21:19] VITALS: PULSE 64
[2019-10-30] MEDS: LORAZEPAM 0.5 MG TABLET PO (21:19)
[2019-10-30 22:03] LABS: Glucose Point of Care 192 (65-105)
[2019-10-31] VITALS (7 sets, daily range): BP systolic 143–155; BP diastolic 41–81; PULSE 51–84; RESP 16–20; TEMP 36.2–36.9; O2SAT 98–100
[2019-10-31] MEDS: SODIUM BICARBONATE 8.4% 150 MEQ in DEXTROSE 5% 1,000 ML 950 ML 100 MEQ IV CONT (03:43)
[2019-10-31] MEDS: AMPICILLIN 1 GM/NS 50 ML 1 GM/50 ML BAG IVPB ×4 (06:03→23:12)
[2019-10-31 06:48] LABS: Basophils Percent Auto 0.4 % (0.2-1.2); Eosinophils Absolute Auto 0.1 K/mm3 (0-0.3); Eosinophils Percent Auto 1.2 % (0-4.4); Hematocrit 33.3 % (37.0-47.0); Immature Granulocyte Absolute 0.08 K/mm3 (0.00-0.031); Immature Granulocyte Percent A 0.9 % (0-0.5); Lymphocytes Absolute Auto 1.77 K/mm3 (0.9-3.2); Lymphocytes Percent Auto 19.4 % (18.3-44.2); Mean Corpuscular Hemoglobin 30.3 pg (26-34); Mean Corpuscular Volume 91.7 fl (80-100); Mean Platelet Volume 12.9 fl (7.4-10.4); Monocytes Absolute Auto 0.7 K/mm3 (0.1-0.6); Monocytes Percent Auto 7.9 % (2.6-8.5); Neutrophils Absolute Auto 6.4 K/mm3 (1.3-6.7); Neutrophils Percent Auto 70.2 % (45.5-73.1); Platelet Count Result 184 k/mm3 (150-375); Red Blood Count 3.63 M/mm3 (4.2-5.4); Red Cell Distribution Width 15.9 % (11.5-14.5); White Blood Count 9.1 K/mm3 (4.5-10.0)
[2019-10-31 06:56] LABS: INR 1.9; Prothrombin Time 21.5 Seconds (11.1-14.7)
[2019-10-31 06:59] LABS: Alanine Aminotransferase 370 U/L (4-35); Albumin Level 2.5 g/dL (3.5-5.1); Alkaline Phosphatase 264 U/L (38-126); Aspartate Amino Transferase 544 U/L (14-36); Bilirubin,Total 1.3 mg/dL (0.2-1.3); Blood Urea Nitrogen 31 mg/dL (7-17); Calcium 8.4 mg/dL (8.4-10.2); Carbon Dioxide 18 mmol/L (22-30); Chloride 113 mmol/L (98-107); Creatine Kinase 1562 U/L (30-135); Estimated Glomerular Filt Rate 44; Glucose 171 mg/dL (65-105); Magnesium 1.3 mg/dL (1.6-2.3); Potassium 4.4 mmol/L (3.4-5.0); Sodium 139 mmol/L (137-145)
[2019-10-31 07:52] LABS: Glucose Point of Care 160 (65-105)
[2019-10-31] MEDS: METOPROLOL TARTRATE 12.5 MG TABLET PO ×2 (08:29→20:44)
[2019-10-31] MEDS: CALCIUM CARBONATE (OSCAL) 500 MG TABLET PO (08:30)
[2019-10-31] MEDS: CYANOCOBALAMIN 1,000 MCG TABLET 1000 MCG PO (08:31)
[2019-10-31] MEDS: SACCHAROMYCES BOULARDII 250 MG CAPSULE PO ×2 (08:31→17:14)
[2019-10-31] MEDS: levETIRAcetam 500 MG TABLET PO ×2 (08:31→20:44)
[2019-10-31] MEDS: SERTRALINE HCL 25 MG TABLET PO (08:31)
[2019-10-31] MEDS: PANTOPRAZOLE 40 MG TABLET PO (08:31)
[2019-10-31] MEDS: DOCUSATE SODIUM 100 MG CAPSULE PO ×2 (08:37→20:44)
[2019-10-31] MEDS: FLUTICASONE PROP 220 MCG (*SP) 12 GM INHALER 2 PUFF INHALATION ×2 (09:47→20:17)
--- NOTE | 2019-10-31 11:04 | PCNFU ---
Nutrition Follow-Up Complete: Inadequate Oral Intake as related to weakness as evidenced by poor po intake reported. Goal: Adequate Intake of at least 75% of meals/supplements patient goal has been met. No new goal. Pt current nutrition is DBCC. Nutrition recommendation: Agree Last recorded weight is 98 kg. Bowel Motility: +BM 10/29 Labs Reviewed:GFR 18,BUN 31,Cr 1.2,Mg 1.3 Meds Noted:Vit B12, Keppra, Colace Additional Notes: Spoke with patient over the telephone today due to COVID 19 precautions. Patient states to having good oral intake, 75-100% noted in EMR. She is drinking the Glucerna Shake BID for an additional 220 kcals and 10 gms protein. Plans for Rehab at discharge. No further nutritional interventions needed at this time. Monitoring: RD will monitor every 7 days.
[2019-10-31] MEDS: MAGNESIUM OXIDE 200 MG TABLET PO ×2 (11:16→20:45)
[2019-10-31 11:26] LABS: Glucose Point of Care 221 (65-105)
[2019-10-31] MEDS: INSULIN ASPART (*BKC) 100 UNITS/ML SUB-Q (11:26)
[2019-10-31 12:38] LABS: Add Urine Microscopic? YES; Appearance Urine Clear (Clear); Bacteria Urine Trace /hpf; Bilirubin Urine Negative (Negative); Blood Urine 1+ (Negative); Color Urine Yellow (Yellow); Glucose Urine UA Negative (Negative); Ketones Urine Negative (Negative); Leukocyte Esterase Ur Negative LEU/UL (Negative); Mucus Urine Rare /lpf; Nitrate Urine Negative (Negative); Protein Urine 1+ mg/dL (Negative); RBC Urine 0-2 /hpf (0-2); Squamous Epithelial Cell Urine Moderate /hpf (Few); Urobilinogen Urine Negative mg/dL (<2.0); WBC Urine 0-3 /hpf
[2019-10-31 12:50] LABS: Myoglobin, Urine >8750 mcg/L (<28)
--- NOTE | 2019-10-31 13:02 | PM.IMPN ---
Progress Note: A&P Assessment and Plan (1) Metabolic acidosis: Code(s): E87.2 - Acidosis Status: Acute Assessment and Plan: Patient has a hyperchloremic non-anion gap metabolic acidosis, likely due to kidney disease from rhabdomyolysis. ABG was ordered 10/28 and revealed pH 7.34, pO2 89.5, pCO2 28, and HCO3 15.3. The pt was given D5W 0.45% NS with sodium bicarb. She has edema to the lower extremities so I will discontinue IV fluids. The metabolic acidosis should resolve with resolution of her rhabdomyolysis which continues to improve Resume sodium biacrb PO TID Continue to monitor CMP (2) Rhabdomyolysis: Qualifiers: Encounter type: initial encounter Code(s): M62.82 - Rhabdomyolysis Status: Acute Assessment and Plan: The patient's generalized weakness is likely due to rhabdomyolysis. However the initial cause of the rhabdomyolysis is unclear. Patient states that she was on the floor about 30 minutes prior to being assisted up. CK at presentation was >[id number]. It is slowly trending down and today is 1562. UA was repeated today and blood was 1+. Pt has edema to the lower extremities bilaterally so I will discontinue IV fluids today. She is tolerating PO intake well. Continue to monitor CK daily Continue to hold atorvastatin Monitor electrolytes (3) Acute renal failure superimposed on stage 3 chronic kidney disease: Code(s): N17.9 - Acute kidney failure, unspecified; N18.3 - Chronic kidney disease, stage 3 (moderate) Status: Acute Assessment and Plan: At presentation, Creatinine 3.9. Baseline appears to be be 1.6. Cr is trending down and today is 1.2. BECKIE was likely due to dehydration as well as rhabdomyolysis. The pt has a hyperchloremic, non-anion gap metabolic acidosis. She has lower extremity edema today so I will discontinue IV fluids. Hold losartan, metformin, and glipizide Continue to monitor (4) UTI (urinary tract infection): Code(s): N39.0 - Urinary tract infection, site not specified Status: Acute Assessment and Plan: Urine culture reveals Enterococcus susceptible to Ampicillin. Patient is afebrile and WBC wnl. Continue Ampicillin. Initiated on 10/27/19. (5) Hypomagnesemia: Code(s): E83.42 - Hypomagnesemia Status: Acute Assessment and Plan: Patient has hypomagnesemia that persists despite PO Magnesium Oxide. This is likely due to patients acidosis. Magnesium was 1.3 today. Administer magnesium oxide 200 BID Continue to monitor (6) Type 2 diabetes mellitus with hyperglycemia: Code(s): E11.65 - Type 2 diabetes mellitus with hyperglycemia Status: Acute Assessment and Plan: Blood sugars were reviewed with slight elevation this afternoon at 221. Ac1 is 8.0 (10/28/19) Metformin and glipizide are on hold due to BECKIE on CKD at presentation. I anticipate that we can resume these at discharge. Continue moderate dose SSI, ACHS, and hypoglycemia protocol Continue to monitor (7) Generalized weakness: Code(s): R53.1 - Weakness Status: Acute Assessment and Plan: Patient had been endorsing generalized lower extremity weakness. She reports she has been less active. Continue PT/OT Plan for TRC at discharge (8) Transaminitis: Code(s): R74.0 - Nonspecific elevation of levels of transaminase and lactic acid dehydrogenase [LDH] Status: Acute Assessment and Plan: The patient does have a history of mildly elevated transaminases in the past. AST, ALT, and ALP were markedly elevated at presentation, likely due to rhabodmyolysis. They are trending down. Total bilirubin was is 1.3 today. RUQ US was unremarkable with no intra or extrahepatic biliary ductal dilation. Continue to monitor (9) Anticoagulated by anticoagulation treatment: Code(s): Z79.01 - [facility] (current) use of anticoagulants Status: Acute
[2019-10-31] MEDS: polyethylene glycoL 3350 17 GM POWD.PACK PO (13:23)
[2019-10-31] MEDS: SODIUM BICARBONATE TAB 650 MG TABLET PO (17:14)
[2019-10-31] MEDS: WARFARIN (*PBKC) 1 MG TABLET PO (17:15)
[2019-10-31 17:30] LABS: Glucose Point of Care 165 (65-105)
[2019-10-31] MEDS: LATANOPROST 0.005% OP SOLN 2.5 ML BTL 1 DROP EACH EYE (20:43)
[2019-10-31] MEDS: LORAZEPAM 0.5 MG TABLET PO (20:43)
[2019-10-31] MEDS: ASPIRIN 81 MG ENTERIC TABLET PO (20:44)
[2019-10-31] MEDS: TOLNAFTATE 1% POWDER 45 GM BTL 1 APPLIC TOPICAL (20:45)
[2019-10-31 22:00] LABS: Glucose Point of Care 150 (65-105)
[2019-11-01] MEDS: AMPICILLIN 1 GM/NS 50 ML 1 GM/50 ML BAG IVPB ×2 (05:21→12:31)
[2019-11-01 06:00] VITALS: BP 142/48; PULSE 64; RESP 20; TEMP 36.6; O2SAT 97
[2019-11-01 09:07] VITALS: PULSE 64
[2019-11-01] MEDS: CALCIUM CARBONATE (OSCAL) 500 MG TABLET PO (09:07)
[2019-11-01] MEDS: METOPROLOL TARTRATE 12.5 MG TABLET PO (09:07)
[2019-11-01] MEDS: CYANOCOBALAMIN 1,000 MCG TABLET 1000 MCG PO (09:07)
[2019-11-01] MEDS: DOCUSATE SODIUM 100 MG CAPSULE PO (09:07)
[2019-11-01] MEDS: SACCHAROMYCES BOULARDII 250 MG CAPSULE PO (09:07)
[2019-11-01] MEDS: levETIRAcetam 500 MG TABLET PO (09:07)
[2019-11-01] MEDS: PANTOPRAZOLE 40 MG TABLET PO (09:07)
[2019-11-01] MEDS: SODIUM BICARBONATE TAB 650 MG TABLET PO (09:08)
[2019-11-01] MEDS: SERTRALINE HCL 25 MG TABLET PO (09:08)
[2019-11-01] MEDS: TOLNAFTATE 1% POWDER 45 GM BTL 1 APPLIC TOPICAL (09:08)
[2019-11-01 09:09] LABS: Alanine Aminotransferase 330 U/L (4-35); Albumin Level 2.5 g/dL (3.5-5.1); Alkaline Phosphatase 248 U/L (38-126); Aspartate Amino Transferase 454 U/L (14-36); Bilirubin,Total 1.3 mg/dL (0.2-1.3); Blood Urea Nitrogen 26 mg/dL (7-17); Calcium 8.3 mg/dL (8.4-10.2); Carbon Dioxide 24 mmol/L (22-30); Chloride 110 mmol/L (98-107); Creatine Kinase 800 U/L (30-135); Estimated Glomerular Filt Rate 44; Glucose 131 mg/dL (65-105); Magnesium 1.1 mg/dL (1.6-2.3); Potassium 4.6 mmol/L (3.4-5.0); Sodium 139 mmol/L (137-145)
[2019-11-01 09:11] LABS: INR 1.8; Prothrombin Time 20.6 Seconds (11.1-14.7)
[2019-11-01] MEDS: FLUTICASONE PROP 220 MCG (*SP) 12 GM INHALER 2 PUFF INHALATION (09:12)
[2019-11-01] MEDS: MAGNESIUM OXIDE 400 MG TABLET PO (10:25)
[2019-11-01 10:30] LABS: Glucose Point of Care 125 (65-105)
--- NOTE | 2019-11-01 11:24 | PM.DS ---
DS: Diagnosis Admitting Diagnosis Admitting Diagnosis: Acute kidney failure, unspecified DS: Summary Hospital Course Reason for hospitalization: Rhabdomyolysis Hospital Course: Mrs. Oneill is a 73 y.o. female with PMH significant for CKD stage III, morbid obesity, T2DM with neuropathy, CAD, HTN, HLD, SURESH, hx of CVA, and HLD who presented to the ED via EMS with c/o generalized weakness for 3 days. She had a hx of fall on October 07 and was evaluated in the ED with a negative evaluation with the exception of bleeding from her left palm. She was re-evaluated in the ED the following day due to difficulty controlling the bleeding and INR was 5.9. She is on warfarin for hx of CVA. She complained of generalized weakness of the upper extremities and back, anorexia with weight loss, and decreased urine output with dark urine. She reported an additional fall 10/24/2019 with no head trauma and was on the ground approximately 30 minutes. Initial presentation in the ED revealed WBC 10,900, markedly elevated CK >66572, PT 23.4, INR 2.1, sodium 134, Cr 3.9, BUN 47, CO2 17, AST 1693, ALT 598, ALP 321, UA suspicious for UTI with 3+ blood as well, CT without acute intracranial abnormality, and CXR without acute cardiopulmonary disease. She was tested for COVID-19 which was negative. She was given IV fluids and admitted to the hospitalist service for further evaluation and management. She was treated with IV fluids for BECKIE and rhabdomyolysis with PO bicarb and them IV D5w 0.45% NS with sodium bicarb for her metabolic acidosis due to BECKIE from rhabdomyolysis which improved. CK was monitored daily and slowly trended down. Transaminits was likely due to acute infection and LFTs trended down. Hepatitis panel and RUQ US were negative. She participated with PT/OT for her deconditioning and was accepted to [facility] for acute rehab. Her generalized weakness did improve with treatment of rhabdomyolysis. Her atorvastatin was held until she follows-up with her PCP as this cannot be ruled out as a potential cause for her rhabdomyolysis. She was treated with ampicillin for enterococcus UTI. Sertraline was initiated as the pt expressed hopelessness and she felt that this really helped her mood. INR was subtherapeutic so warfarin was increased to 1.5mg with order to repeat INR. She was discharged in stable condition. She will need to follow-up with her PCP after discharge from [facility] for follow-up on LFTs, Cr, and antihyperlipidemic therapy. Status at Discharge Functional status at discharge: uses cane/walker Overall status at discharge: patient is progressing back to baseline Time Spent with Patient Time attestation: Total time spent providing and/or coordinating discharge services: 40 minutes Exam Narrative: Exam Narrative: General: Obese, well-developed and well-nourished elderly 73 y.o. female who is sitting up in the chair in no acute distress. HEENT: Normocephalic and atraumatic. Conjunctivae and lids normal. PERRL. EOMI. Mucous membranes moist. Neck: Supple. No lymphadenopathy or masses. Cardiac: Regular rate and rhythm. S1 and S2 normal. Lungs: Lungs are clear to auscultation bilaterally. Abdomen: Bowel sounds active. Abdomen is soft, non-distended, and non-tender. Extremities: 1+ pitting edema bilaterally. Reginald negative. Palpable DP and PT bilaterally. Neurological: Alert and oriented x3. No focal neurological deficits noted. Speech is clear. Skin: Warm and dry. Psychiatric: Judgment and insight intact. Mood and affect normal. DS: Data Data Completed and Pending Labs on day of discharge: Labs from last 24 hours 11/01/19 11/01/19 11/01/19 08:37 08:37 08:25 PT 20.6 H INR 1.8 Sodium 139 Potassium 4.6 Chloride 110 H Carbon Dioxide 24 BUN 26 H Creatinine 1.20 H Estim Creat Clear Calc Not Reportable Estimated GFR 44 L Glucose 131 H POC Capillary Glucose 125 H Calcium 8.3 L Magnesium 1.1 L Total Bilirubin 1.3 AST 454 H ALT
[2019-11-01 11:42] LABS: Glucose Point of Care 153 (65-105)
== END 2019-11-01 14:30 | DRG 558 ==
LOC: ANHED 16:03 → ANH3MED 21:12
PROVIDERS: Internal Medicine; Physician Assistant; Admitting Provider Family Medicine; Emergency Provider Emergency Medicine; PCP Family Medicine; Visit Provider Physician Assistant
DX: M62.82 Rhabdomyolysis (principal); N17.9 Acute kidney failure, unspecified; E87.2 Acidosis; N39.0 Urinary tract infection, site not specified; Z68.41 Body mass index [BMI] 40.0-44.9, adult; B95.2 Enterococcus as the cause of diseases classified elsewhere; E66.01 Morbid (severe) obesity due to excess calories; Z20.828 Contact with and (suspected) exposure to other viral communicable diseases; N18.3 Chronic kidney disease, stage 3 (moderate); E86.0 Dehydration; E83.42 Hypomagnesemia; E11.65 Type 2 diabetes mellitus with hyperglycemia; F32.9 Major depressive disorder, single episode, unspecified; I51.89 Other ill-defined heart diseases; E11.51 Type 2 diabetes mellitus with diabetic peripheral angiopathy without gangrene; F41.8 Other specified anxiety disorders; K58.9 Irritable bowel syndrome, unspecified; M79.7 Fibromyalgia; K21.9 Gastro-esophageal reflux disease without esophagitis; H40.9 Unspecified glaucoma; I25.10 Atherosclerotic heart disease of native coronary artery without angina pectoris; J45.909 Unspecified asthma, uncomplicated; R74.0 Nonspecific elevation of levels of transaminase and lactic acid dehydrogenase [LDH]; E11.42 Type 2 diabetes mellitus with diabetic polyneuropathy; G47.33 Obstructive sleep apnea (adult) (pediatric); K75.9 Inflammatory liver disease, unspecified; L30.9 Dermatitis, unspecified; E78.5 Hyperlipidemia, unspecified; R19.7 Diarrhea, unspecified; Z96.651 Presence of right artificial knee joint; Z86.73 Personal history of transient ischemic attack (TIA), and cerebral infarction without residual deficits; Z79.01 Long term (current) use of anticoagulants; Z85.828 Personal history of other malignant neoplasm of skin; Z86.718 Personal history of other venous thrombosis and embolism; Z90.49 Acquired absence of other specified parts of digestive tract; Z87.891 Personal history of nicotine dependence
CPT/HCPCS: 36415; 36600; 70450; 71046; 73552; 76705; 80053; 80074; 81001; 82248; 82274; 82550; 82728; 82805; 83036; 83615; 83735; 83874; 84132; 84443; 84550; 85025; 85027; 85055; 85610; 85652; 85730; 86140; 87077; 87086; 87088; 87186; 87635; 93005; 94640; 96360; 96361; 97110; 97116; 97161; 97165; 97530; 97535; 99291; A9270; J0290; J1815; J3475; J7030; J7070; J7120; U0003

== ENCOUNTER 2019-11-01 14:35 | IRF | payer MEDICARE, OTHER, SELFPAY ==
--- NOTE | ~2019-11-01 | US_ITS ---
EXAMINATION:US venous doppler LE BI INDICATION:Bilateral leg swelling TECHNIQUE: Multiple grayscale, color flow and Doppler images of the lower extremity deep venous syste ms were obtained and reviewed. COMPARISON:Ultrasound dated 09/08/2016 FINDINGS: The common femoral, superficial femoral and popliteal veins demonstrate normal respiratory variation, augmentation and compressibility. Color flow is also seen within the posterior tibial, pe roneal, greater saphenous and profunda veins. IMPRESSION: 1: No lower extremity deep venous thrombosis. Reviewed, dictated and finalized at location A.
[2019-11-01 14:35] VITALS: BP 144/55; PULSE 60; RESP 20; TEMP 36.2; O2SAT 99; BMI 46.3
--- NOTE | 2019-11-01 15:29 | ADMGEN ---
This patient, Ermelinda Oneill, was admitted to [facility] Room 224-02. Patient/family oriented to hospital policies and general routines including ID bracelet, bed and alarms, visiting hours, pain management, procedures, bathroom and other care routines, personal items, smoking policy, room service/diet, and visiting hours. Valuables list has been completed. Information on how to activate the Rapid Response Team has been discussed. Patient/Family are encouraged to report perceived risks to care and to ask questions if they do not understand what they are told or what they should do.
[2019-11-01 17:04] LABS: Glucose Point of Care 146 (65-105)
[2019-11-01] MEDS: AMPICILLIN TRIHYDRATE 500 MG CAPSULE PO ×2 (17:15→23:02)
[2019-11-01] MEDS: glipiZIDE 5 MG TABLET PO (17:15)
[2019-11-01] MEDS: WARFARIN (*PBKC) 1.5 MG TABLET PO (17:15)
[2019-11-01] MEDS: FLUTICASONE PROP 220 MCG (*SP) 12 GM INHALER 2 PUFF INHALATION (20:25)
[2019-11-01] MEDS: TOLNAFTATE 1% POWDER 45 GM BTL 1 APPLIC TOPICAL (20:32)
[2019-11-01] MEDS: LATANOPROST 0.005% OP SOLN 2.5 ML BTL 1 DROP EACH EYE (20:32)
[2019-11-01 20:33] VITALS: PULSE 64
[2019-11-01] MEDS: MAGNESIUM OXIDE 200 MG TABLET PO (20:33)
[2019-11-01] MEDS: levETIRAcetam 500 MG TABLET PO (20:33)
[2019-11-01] MEDS: METOPROLOL TARTRATE 12.5 MG TABLET PO (20:33)
[2019-11-01] MEDS: ASPIRIN 81 MG ENTERIC TABLET PO (20:34)
[2019-11-01] MEDS: LORAZEPAM 0.5 MG TABLET PO (20:37)
[2019-11-01 22:00] VITALS: BP 149/48; PULSE 67; RESP 19; TEMP 36.6; O2SAT 98
[2019-11-02 04:42] LABS: Basophils Percent Auto 0.3 % (0.2-1.2); Eosinophils Absolute Auto 0.2 K/mm3 (0-0.3); Eosinophils Percent Auto 1.7 % (0-4.4); Hematocrit 32.2 % (37.0-47.0); Hemoglobin 10.6 g/dL (12.0-15.0); Lymphocytes Percent Auto 22.6 % (18.3-44.2); Mean Corpuscular HGB Conc 32.9 g/dl (32-36); Mean Corpuscular Hemoglobin 30.1 pg (26-34); Mean Corpuscular Volume 91.5 fl (80-100); Mean Platelet Volume 12.2 fl (7.4-10.4); Monocytes Absolute Auto 0.7 K/mm3 (0.1-0.6); Monocytes Percent Auto 7.6 % (2.6-8.5); Neutrophils Absolute Auto 6.5 K/mm3 (1.3-6.7); Neutrophils Percent Auto 66.8 % (45.5-73.1); Platelet Count Result 186 k/mm3 (150-375); Red Blood Count 3.52 M/mm3 (4.2-5.4); Red Cell Distribution Width 16.6 % (11.5-14.5); White Blood Count 9.7 K/mm3 (4.5-10.0)
[2019-11-02 04:58] LABS: Blood Urea Nitrogen 27 mg/dL (7-17); Calcium 8.4 mg/dL (8.4-10.2); Carbon Dioxide 26 mmol/L (22-30); Chloride 110 mmol/L (98-107); Estimated Glomerular Filt Rate 49; Glucose 87 mg/dL (65-105); Potassium 4.3 mmol/L (3.4-5.0); Sodium 138 mmol/L (137-145)
[2019-11-02 05:07] LABS: INR 1.9; Prothrombin Time 21.2 Seconds (11.1-14.7)
[2019-11-02] MEDS: AMPICILLIN TRIHYDRATE 500 MG CAPSULE PO ×4 (05:32→23:46)
[2019-11-02 06:00] VITALS: BP 151/60; PULSE 50; RESP 20; TEMP 36.7; O2SAT 97
[2019-11-02 07:18] LABS: Glucose Point of Care 93 (65-105)
[2019-11-02] MEDS: FLUTICASONE PROP 220 MCG (*SP) 12 GM INHALER 2 PUFF INHALATION ×2 (08:17→18:52)
[2019-11-02] MEDS: CALCIUM CARBONATE (OSCAL) 500 MG TABLET PO (08:35)
[2019-11-02] MEDS: glipiZIDE 5 MG TABLET PO ×2 (08:35→18:31)
[2019-11-02] MEDS: LOSARTAN POTASSIUM 100 MG TABLET PO (08:36)
[2019-11-02] MEDS: CYANOCOBALAMIN 1,000 MCG TABLET 1000 MCG PO (08:36)
[2019-11-02] MEDS: levETIRAcetam 500 MG TABLET PO ×2 (08:36→20:26)
[2019-11-02 08:37] VITALS: PULSE 60
[2019-11-02] MEDS: SERTRALINE HCL 25 MG TABLET PO (08:37)
[2019-11-02] MEDS: PANTOPRAZOLE 40 MG TABLET PO (08:37)
[2019-11-02] MEDS: MAGNESIUM OXIDE 200 MG TABLET PO ×2 (08:37→20:25)
[2019-11-02] MEDS: METOPROLOL TARTRATE 12.5 MG TABLET PO ×2 (08:37→20:25)
[2019-11-02] MEDS: TOLNAFTATE 1% POWDER 45 GM BTL 1 APPLIC TOPICAL ×2 (08:38→20:26)
[2019-11-02 09:24] VITALS: BMI 46.3
--- NOTE | 2019-11-02 10:30 | WPDREHABHP ---
H&P: HPI History of Present Illness Chief complaint: Metabolic Acidosis Narrative: Ermelinda Oneill is a 73 year old female HISTORY OF PRESENT ILLNESS: The patient's primary rehab impairment category is 20-miscellaneous The etiologic diagnosis is hyperchloremic non anion gap metabolic acidosis I saw this patient [id number] on November 02, 2019 at 10:30 a.m. The patient is a 73-year-old left-handed woman with a prior medical history of type 2 diabetes mellitus with diabetic peripheral neuropathy, diastolic dysfunction and acute renal failure who presented to understand emergency department October 25, 2019 with complaints of generalized weakness. The patient reported that she had been feeling weak in her arms legs over the last few days prior to admission. She reported 2 recent falls over the last couple of weeks. On October 09, 2019 she was seen in the ER for hand injury with ongoing bleeding from a fall. Her INR at the time was 5.9. Patient is on chronic long-term anticoagulation with for when warfarin due to history of multiple strokes. This admission the patient was found with acute renal failure, elevated liver enzymes, and markedly elevated CK level of over a 16 1000. She also reported some diarrhea and on further questioning she revealed she has had recent poor oral intake with weight loss of [address] scan of the chest x-ray showed on no acute findings the patient was started on IV fluids. Patient developed hyper [place] oral mucosa non anion gap metabolic acidosis. This was thought to be secondary to kidney disease from rhabdomyolysis. ABG revealed pH of 7.3 for PO2 of 89 and pCO2 of 28. She had a bicarbonate of 15.3. Patient was placed NPO sodium bicarb b.i.d. but her metabolic acidosis persisted so she was switched to her D5W with sodium bicarb. For urine culture revealed enterococcus and she was started on I the ampicillin on October 26. On October 27 her chest x-ray demonstrated it was training down and wanted to be better and the creatinine was also noted to be better than before her baseline creatinine is about 1.6. Her magnesium was also replaced due to level of 1.2. She was switched to D5 W with sodium bicarb July 14, 2020 with close monitoring of her blood sugars. The patient is on [place] 5/325 p.r.n. for pain. The patient was discharged to rehab on warfarin The patient did have a nasopharyngeal swab which was negative for COVID-19. The patient has not traveled outside the [place] or had contact with someone was ill that has traveled outside the [place] in the past 21 days. The patient not travel to an area of the [place] in that is experiencing known transmission of the Coronavirus and has not had close personal contact with anyone that has. The patient does not have a fever or lower respiratory illness symptom the patient does however reported that her chronic shortness of breath is due to her history of asthma and baseline period The patient does mention to be that she has had multiple stroke at least 4 which has left her with the left-sided weakness in the left-sided visual field defect however speech is fluent and she is able to comprehend quite well and understands quite well but she definitely fecal generalized fatigue tiredness and has regressed in her motor functions and the activities of daily living Therapy was initiated at the acute care facility and the patient transferred to us from [facility] on November 01, 2019 FALLS OR SURGERIES: The patient has had no major surgeries in the 100 days prior to admission. They had falls in the past year. They had falls with injury in the past year. PAST MEDICAL HISTORY: anxiety, bilateral tinnitus, coronary artery disease, depression, type 2 diabetes mellitus with diabetic peripheral neuropathy, diastolic dysfunction, diverticulosis, eczema, endometriosis, hypertension, fibromyalgia, falls, GERD, glaucoma, grade 3 hemorrhoids, prior strokes which has left her with right-sided weak
[2019-11-02 14:00] VITALS: BP 128/49; PULSE 68; RESP 20; TEMP 36.6; O2SAT 97
--- NOTE | 2019-11-02 15:30 | RPD ---
INDIVIDUALIZED PLAN OF CARE FOR Ermelinda Oneill Brief Synthesis of Pre-Admission Screen, Post-Admission Evaluation and Therapy Evaluations: The patient presents to rehab with hyperchloremic non-anion gap metabolic acidosis.. Comorbidities include anxiety, coronary artery disease, depression, diabetes mellitus with diabetic peripheral neuropathy, diastolic dysfunction, diverticulosis, eczema, hypertension, fibromyalgia, history of falls, GERD, glaucoma, grade 3 hemorrhoids, history of stroke, hyperlipidemia,irritable bowel syndrome, morbid obesity, peripheral artery disease, diabetic peripheral neuropathy, UTI, recurrent falls, hypomagnesemia, acute kidney injury, transaminitis, rhabdomyolisis, acute renal failure superimposed on stage 3 chronic kidney disease, dehydration. The patient needs physician monitoring and treatment of acute kidney failure, acidosis, rhabdomyolysis, dehydration, elevated creatinine, hypemagnesemia, elevated blood sugar, anemia, monitoring for adverse reactions to new medications, monitoring of infection, and pain control. The patient requires nursing services for anticoagulation therapy, medication management and education, pressure relief and skin care management, monitoring of labs, bowel and bladder training, diabetes management and education, possible IV administration, and fall/safety precautions. Deficits include:ADLs, Balance, Endurance, Family Training/Education, Mobility, Pain Management, ROM, Safety, Strength, and Transfers. Patient Admitting Clerk/Case Management for: Discharge Planning and Patient/Family Counseling Physical Therapy: 5 days per week for 90 minutes. Treatments may include: Therapeutic Exercise, Gait Training, Neuromuscular Re-education, Transfer Training, Community Reintegration, Bed Mobility, Patient/Family Education, Wheelchair Mobility Group Therapy/Concurrent Therapy Rationales: -Improve attention span during functional activities in a distracted environment. -Enhance problem solving and/or adequate judgment skills during functional activities in a distracted environment. -Promote increased safety awareness in a distracted environment to reduce fall risk with functional tasks, transfers, and ambulation to allow a more safe, self-sufficient return to the home environment. -Improve dynamic balance skills to promote safety and independence with functional activities in a distracted environment for maximum gain. Occupational Therapy: 5 days per week for 90 minutes. Treatments may include: Therapeutic Exercise, Therapeutic Activity, Cognitive Training, Self-Care Transfer Training, Community Reintegration, Home Management, Patient/Family Education, Wheelchair Mobility Training, Energy Conservation Training Group Therapy/Concurrent Therapy Rationales: -Allow therapist to observe and teach generalization and carry-over of skills learned in individual therapy. -Enhance problem solving and sequencing skills during therapeutic activities in a distracted environment. -Promote increased safety awareness in a realistic setting to reduce fall risk with functional tasks due to visual and verbal distractions. -Increase functional level with ADLs, ADL transfers and use of adaptive equipment through therapeutic activities with others while promoting safety to allow a more safe, self-sufficient return home. Medical Prognosis: Good Anticipated Length of Stay: 10 days Rehab Goals: Eating Goal: 06-Independent Oral Hygiene Goal: 06-Independent Toileting Hygiene Goal: 05-Setup or Clean Up Assistance Shower/Bathe Self Goal: 04-Supervision or Touching Assistance Upper Body Dressing Goal: 06-Independent Lower Body Dressing Goal: 06-Independent Putting On/Taking Off Footwear Goal: 06-Independent Rolling Left and Right Goal: 06-Independent Sit to Lying Goal: 06-Independent Lying to Sitting on Side of Bed Goal: 06-Independent Sit to Stand Goal: 06-Independent Chair/[id number] Transfer Goal: 06-Independent Toilet Transfer Goal: 06-
[2019-11-02 17:27] LABS: Glucose Point of Care 136 (65-105)
[2019-11-02] MEDS: WARFARIN (*PBKC) 2 MG TABLET PO (18:57)
[2019-11-02 20:25] VITALS: PULSE 88
[2019-11-02] MEDS: LATANOPROST 0.005% OP SOLN 2.5 ML BTL 1 DROP EACH EYE (20:25)
[2019-11-02] MEDS: ASPIRIN 81 MG ENTERIC TABLET PO (20:26)
[2019-11-02] MEDS: LORAZEPAM 0.5 MG TABLET PO (20:31)
[2019-11-02 21:41] VITALS: BP 154/63; PULSE 67; RESP 18; TEMP 36.6; O2SAT 98
[2019-11-03 04:46] LABS: Alanine Aminotransferase 295 U/L (4-35); Albumin Level 2.8 g/dL (3.5-5.1); Alkaline Phosphatase 248 U/L (38-126); Aspartate Amino Transferase 391 U/L (14-36); Bilirubin,Total 1.2 mg/dL (0.2-1.3); Blood Urea Nitrogen 25 mg/dL (7-17); Calcium 8.4 mg/dL (8.4-10.2); Carbon Dioxide 24 mmol/L (22-30); Chloride 109 mmol/L (98-107); Creatine Kinase 297 U/L (30-135); Estimated Glomerular Filt Rate 44; Glucose 124 mg/dL (65-105); Potassium 4.4 mmol/L (3.4-5.0); Sodium 140 mmol/L (137-145)
[2019-11-03 05:01] LABS: INR 1.7; Prothrombin Time 19.4 Seconds (11.1-14.7)
[2019-11-03] MEDS: AMPICILLIN TRIHYDRATE 500 MG CAPSULE PO ×2 (05:59→14:11)
[2019-11-03 06:19] VITALS: BP 133/46; PULSE 56; RESP 18; TEMP 36.6; O2SAT 96
[2019-11-03 06:49] LABS: Glucose Point of Care 118 (65-105)
[2019-11-03] MEDS: FLUTICASONE PROP 220 MCG (*SP) 12 GM INHALER 2 PUFF INHALATION ×2 (09:19→20:32)
[2019-11-03] MEDS: levETIRAcetam 500 MG TABLET PO ×2 (09:34→19:56)
[2019-11-03 09:35] VITALS: PULSE 56
[2019-11-03] MEDS: LOSARTAN POTASSIUM 100 MG TABLET PO (09:35)
[2019-11-03] MEDS: MAGNESIUM OXIDE 200 MG TABLET PO ×2 (09:35→19:55)
[2019-11-03] MEDS: glipiZIDE 5 MG TABLET PO (09:35)
[2019-11-03] MEDS: CYANOCOBALAMIN 1,000 MCG TABLET 1000 MCG PO (09:35)
[2019-11-03] MEDS: CALCIUM CARBONATE (OSCAL) 500 MG TABLET PO (09:35)
[2019-11-03] MEDS: METOPROLOL TARTRATE 12.5 MG TABLET PO ×2 (09:35→19:56)
[2019-11-03] MEDS: SERTRALINE HCL 25 MG TABLET PO (09:36)
[2019-11-03] MEDS: TOLNAFTATE 1% POWDER 45 GM BTL 1 APPLIC TOPICAL ×2 (09:36→19:57)
[2019-11-03] MEDS: PANTOPRAZOLE 40 MG TABLET PO (09:36)
--- NOTE | 2019-11-03 12:54 | WPDNEURORHBP ---
Subjective Date/time seen: 11/03/19 12:54 Review of Systems Review of Systems: All systems reviewed & are unremarkable except as noted in HPI and below Functional Status Ambulation Ability Ability to Ambulate 10 Feet: Contact Guard Ability to Ambulate 50 Feet With 2 Turns: Contact Guard Ambulation Assistive Devices: Walker, Wheeled Exam Const: General: cooperative, healthy appearing, comfortable and no acute distress Nutritional Appearance: well nourished Orientation/consciousness: patient oriented x3 Limitations: no limitations HENMT: Head: normocephalic Ears: hearing grossly normal bilaterally General nose exam: Normal nares present and No nasal discharge present Face and sinus: normal facial exam Mouth: Yes Normal oral and palatal mucosa present Eyes: General: appearance normal, both eyes and all related structures Neck: Neck: full ROM and no lymphadenopathy Resp: Effort & Inspection: normal respiratory effort and able to speak in complete sentences Auscultation: clear to auscultation bilaterally Cardio: Rate: regular rate Rhythm: regular rhythm GI: Auscultation: normal bowel sounds Skin: General skin exam: no rashes or lesions noted Neuro: General: patient oriented x3 and moves all extremities Cranial nerves: Yes CN's II-XII intact bilaterally Gait exam (Neuro): Unable to assess gait Motor exam (neuro): Abnormal motor strength present (decreased R>L) Sensory Exam: Sensory deficit (Neuro) Deep tendon reflexes (DTR's): Right patellar reflex intensity grade: 0, Left patellar reflex intensity grade: 0, Right ankle reflex intensity grade: 0 and Left ankle reflex intensity grade: 0 Plantar Reflex Responses: downgoing: bilateral Psych: Appearance: well kempt Speech and movement: Normal speech and movement present Affect: normal affect Attitude: cooperative Thought process: Normal thought process present Thought content: Yes Suicidality present, Yes Homicidality present, Yes Paranoid delusions present, Yes delusions, Yes Hallucination(s) present, Yes Depressive thoughts present, Yes Ideas of reference present (thought content), Yes Derealization present, Yes Depersonalization present, Yes Compulsions present (thought content), Yes Obsession(s) present, Yes Phobia(s) present and Yes other Objective Data Vital Signs Vital Signs: Vital Signs - 24 hr 11/02/19 14:00 11/02/19 20:25 11/02/19 21:41 Temperature 36.6 C 36.6 C Pulse Rate 68 88 67 Respiratory Rate 20 18 Blood Pressure 128/49 L 154/63 H Pulse Oximetry 97 98 11/03/19 06:19 11/03/19 09:35 Temperature 36.6 C Pulse Rate 56 L 56 L Respiratory Rate 18 Blood Pressure 133/46 L Pulse Oximetry 96 Intake/Output Intake/Output: Intake & Output 10/31/19 11/01/19 11/02/19 11/03/19 23:59 23:59 23:59 23:59 Intake Total 360 720 240 Balance 360 720 240 Meds/Results Medications: Active Medications Generic Name Dose Route Start Last Admin Trade Name Freq PRN Reason Stop Dose Admin Hydrocodone Bitart/Acetaminophen 1 tab 11/01/19 15:46 [place] 5-325 Mg PO QID PRN Back Pain Albuterol 1 puff 11/01/19 15:46 Proventil Hfa INHALATION BID PRN Shortness Of Breath Aspirin 81 mg 11/01/19 21:00 11/02/19 20:26 Aspirin Ec PO 81 mg HS KAREEM Administration Calcium Carbonate 500 mg 11/02/19 09:00 11/03/19 09:35 Oscal 500 Mg PO 12/02/19 09:01 500 mg DAILY KAREEM Administration Cyanocobalamin 1,000 mcg 11/02/19 09:00 11/03/19 09:35 Vitamin B-12 Tab PO 1,000 mcg DAILY KAREEM Administration Docusate Sodium 100 mg 11/01/19 15:46 Colace Capsule PO Q12HR PRN constipation Fluticasone Propionate 2 puff 11/01/19 20:00 11/02/19 18:52 Flovent INHALATION 2 puff Q12HRT KAREEM Administration Glipizide 5 mg 11/01/19 17:00 11/03/19 09:35 Glucotrol PO 5 mg BIDWM KAREEM Administration Latanoprost 1 drop 11/01/19 21:00 11/02/19 20:25 Xalatan EACH EYE 1 drop HS
[2019-11-03 14:00] VITALS: BP 142/56; PULSE 86; RESP 18; TEMP 36.5; O2SAT 97
[2019-11-03 16:33] LABS: Glucose Point of Care 110 (65-105)
[2019-11-03] MEDS: WARFARIN (*PBKC) 3 MG TABLET PO (16:55)
[2019-11-03] MEDS: LATANOPROST 0.005% OP SOLN 2.5 ML BTL 1 DROP EACH EYE (19:55)
[2019-11-03 19:56] VITALS: PULSE 88
[2019-11-03] MEDS: ASPIRIN 81 MG ENTERIC TABLET PO (19:56)
[2019-11-03] MEDS: LORAZEPAM 0.5 MG TABLET PO (19:56)
[2019-11-03 22:00] VITALS: BP 143/44; PULSE 56; RESP 20; TEMP 36.6; O2SAT 100
[2019-11-04 05:09] LABS: INR 1.8; Prothrombin Time 20.5 Seconds (11.1-14.7)
[2019-11-04 05:51] LABS: Glucose Point of Care 106 (65-105)
[2019-11-04 06:00] VITALS: BP 142/54; PULSE 59; RESP 19; TEMP 36.4; O2SAT 100
[2019-11-04] MEDS: FLUTICASONE PROP 220 MCG (*SP) 12 GM INHALER 2 PUFF INHALATION ×2 (08:15→20:23)
[2019-11-04] MEDS: glipiZIDE 5 MG TABLET PO ×2 (09:03→17:36)
[2019-11-04] MEDS: levETIRAcetam 500 MG TABLET PO ×2 (09:05→20:23)
[2019-11-04 09:06] VITALS: PULSE 59
[2019-11-04] MEDS: TOLNAFTATE 1% POWDER 45 GM BTL 1 APPLIC TOPICAL ×2 (09:06→20:23)
[2019-11-04] MEDS: CALCIUM CARBONATE (OSCAL) 500 MG TABLET PO (09:06)
[2019-11-04] MEDS: LOSARTAN POTASSIUM 100 MG TABLET PO (09:06)
[2019-11-04] MEDS: MAGNESIUM OXIDE 200 MG TABLET PO (09:06)
[2019-11-04] MEDS: CYANOCOBALAMIN 1,000 MCG TABLET 1000 MCG PO (09:06)
[2019-11-04] MEDS: METOPROLOL TARTRATE 12.5 MG TABLET PO ×2 (09:06→20:22)
[2019-11-04] MEDS: SERTRALINE HCL 25 MG TABLET PO (09:07)
[2019-11-04] MEDS: PANTOPRAZOLE 40 MG TABLET PO (09:07)
--- NOTE | 2019-11-04 11:20 | WPDNEURORHBP ---
Subjective Date/time seen: 11/04/19 11:20 Review of Systems Review of Systems: All systems reviewed & are unremarkable except as noted in HPI and below Functional Status Ambulation Ability Ability to Ambulate 10 Feet: Contact Guard Ability to Ambulate 50 Feet With 2 Turns: Contact Guard Ambulation Assistive Devices: Walker, Wheeled Exam Const: General: cooperative, comfortable and no acute distress HENMT: Head: normal to inspection Eyes: General: appearance normal, both eyes and all related structures Neck: Neck: full ROM and no lymphadenopathy Resp: Effort & Inspection: normal respiratory effort Auscultation: clear to auscultation bilaterally Cardio: Rate: regular rate Rhythm: regular rhythm Skin: General skin exam: no rashes or lesions noted Neuro: General: patient oriented x3 and moves all extremities Cranial nerves: Yes CN's II-XII intact bilaterally Motor exam (neuro): Abnormal motor strength present (unchanged) Objective Data Vital Signs Vital Signs: Vital Signs - 24 hr 11/03/19 14:00 11/03/19 19:56 11/03/19 22:00 Temperature 36.5 C 36.6 C Pulse Rate 86 88 56 L Respiratory Rate 18 20 Blood Pressure 142/56 H 143/44 H Pulse Oximetry 97 100 11/04/19 06:00 11/04/19 09:06 Temperature 36.4 C L Pulse Rate 59 L 59 L Respiratory Rate 19 Blood Pressure 142/54 H Pulse Oximetry 100 Intake/Output Intake/Output: Intake & Output 11/01/19 11/02/19 11/03/19 11/04/19 23:59 23:59 23:59 23:59 Intake Total 360 720 720 160 Balance 360 720 720 160 Meds/Results Medications: Active Medications Generic Name Dose Route Start Last Admin Trade Name Freq PRN Reason Stop Dose Admin Hydrocodone Bitart/Acetaminophen 1 tab 11/01/19 15:46 [place] 5-325 Mg PO QID PRN Back Pain Albuterol 1 puff 11/01/19 15:46 Proventil Hfa INHALATION BID PRN Shortness Of Breath Aspirin 81 mg 11/01/19 21:00 11/03/19 19:56 Aspirin Ec PO 81 mg HS KAREEM Administration Calcium Carbonate 500 mg 11/02/19 09:00 11/04/19 09:06 Oscal 500 Mg PO 12/02/19 09:01 500 mg DAILY KAREEM Administration Cyanocobalamin 1,000 mcg 11/02/19 09:00 11/04/19 09:06 Vitamin B-12 Tab PO 1,000 mcg DAILY [facility] Administration Docusate Sodium 100 mg 11/01/19 15:46 Colace Capsule PO Q12HR PRN constipation Fluticasone Propionate 2 puff 11/01/19 20:00 11/04/19 08:15 Flovent INHALATION 2 puff Q12HRT KAREEM Administration Glipizide 5 mg 11/01/19 17:00 11/04/19 09:21 Glucotrol PO Not Given BIDWM KAREEM Latanoprost 1 drop 11/01/19 21:00 11/03/19 19:55 Xalatan EACH EYE 1 drop HS [facility] Administration Levetiracetam 500 mg 11/01/19 21:00 11/04/19 09:05 Keppra Tablet PO 500 mg Q12HR KAREEM Administration Lorazepam 0.5 mg 11/01/19 15:46 11/03/19 19:56 Ativan Tab PO 0.5 mg BID PRN Administration Insomnia Losartan Potassium 100 mg 11/02/19 09:00 11/04/19 09:06 Cozaar PO 100 mg DAILY [facility] Administration Metoprolol Tartrate 12.5 mg 11/01/19 21:00 11/04/19 09:06 Lopressor PO 12.5 mg Q12HR KAREEM Administration Pantoprazole Sodium 40 mg 11/02/19 09:00 11/04/19 09:07 Protonix PO 12/02/19 09:01 40 mg DAILY [facility] Administration Sertraline HCl 25 mg 11/02/19 09:00 11/04/19 09:07 Zoloft PO 25 mg QAM [facility] Administration Tolnaftate 1 applic 11/01/19 21:00 11/04/19 09:06 Tolnaftate 1% Powder TOPICAL 1 applic Q12HR [facility] Administration Warfarin Sodium 3 mg 11/03/19 17:00 11/03/19 16:55 Coumadin PO 3 mg DAILY@1700 [facility] Administration Labs Labs: Laboratory Results - last 24 hr 11/03/19 11/04/19 11/04/19 16:31 04:21 05:43 PT 20.5 H INR 1.8 POC Capillary Glucose 110 106 Progress Note: A&P Assessment and Plan (1) DVT prophylaxis: Code(s): Z29.9 - Encounter for prophylactic measures, unspecified Status: Acute (2) Diarrhea: Code(
[2019-11-04 14:00] VITALS: BP 150/57; PULSE 60; RESP 18; TEMP 36.7; O2SAT 98
[2019-11-04 16:44] LABS: Glucose Point of Care 141 (65-105)
[2019-11-04] MEDS: WARFARIN (*PBKC) 3 MG TABLET PO (17:37)
[2019-11-04 20:22] VITALS: PULSE 68
[2019-11-04] MEDS: LATANOPROST 0.005% OP SOLN 2.5 ML BTL 1 DROP EACH EYE (20:22)
[2019-11-04] MEDS: ASPIRIN 81 MG ENTERIC TABLET PO (20:22)
[2019-11-04 22:00] VITALS: BP 148/58; PULSE 68; RESP 20; TEMP 36.6; O2SAT 98
[2019-11-05 05:16] LABS: INR 2.1; Prothrombin Time 22.9 Seconds (11.1-14.7)
[2019-11-05 06:00] VITALS: BP 149/52; PULSE 62; RESP 18; TEMP 36.4; O2SAT 98
[2019-11-05 06:18] LABS: Glucose Point of Care 104 (65-105)
[2019-11-05 08:47] VITALS: PULSE 62
[2019-11-05] MEDS: CALCIUM CARBONATE (OSCAL) 500 MG TABLET PO (08:47)
[2019-11-05] MEDS: METOPROLOL TARTRATE 12.5 MG TABLET PO ×2 (08:47→19:59)
[2019-11-05] MEDS: glipiZIDE 5 MG TABLET PO ×2 (08:47→17:24)
[2019-11-05] MEDS: CYANOCOBALAMIN 1,000 MCG TABLET 1000 MCG PO (08:47)
[2019-11-05] MEDS: PANTOPRAZOLE 40 MG TABLET PO (08:47)
[2019-11-05] MEDS: TOLNAFTATE 1% POWDER 45 GM BTL 1 APPLIC TOPICAL ×2 (08:48→20:01)
[2019-11-05] MEDS: SERTRALINE HCL 25 MG TABLET PO (08:48)
[2019-11-05] MEDS: levETIRAcetam 500 MG TABLET PO ×2 (08:48→19:58)
[2019-11-05] MEDS: LOSARTAN POTASSIUM 100 MG TABLET PO (08:48)
[2019-11-05] MEDS: FLUTICASONE PROP 220 MCG (*SP) 12 GM INHALER 2 PUFF INHALATION ×2 (09:02→20:10)
[2019-11-05 09:05] VITALS: PULSE 51; RESP 16
[2019-11-05 14:00] VITALS: BP 149/61; PULSE 54; RESP 18; TEMP 36.3; O2SAT 100
[2019-11-05 16:54] LABS: Glucose Point of Care 99 (65-105)
[2019-11-05] MEDS: WARFARIN (*PBKC) 3 MG TABLET PO (17:24)
[2019-11-05] MEDS: ASPIRIN 81 MG ENTERIC TABLET PO (19:57)
[2019-11-05] MEDS: LATANOPROST 0.005% OP SOLN 2.5 ML BTL 1 DROP EACH EYE (19:58)
[2019-11-05 19:59] VITALS: PULSE 62
[2019-11-05] MEDS: LORAZEPAM 0.5 MG TABLET PO (20:07)
[2019-11-05 22:00] VITALS: BP 150/56; PULSE 61; RESP 20; TEMP 36.2; O2SAT 100
[2019-11-06 04:52] LABS: INR 2.3; Prothrombin Time 24.6 Seconds (11.1-14.7)
[2019-11-06 06:00] VITALS: BP 150/55; PULSE 52; RESP 19; TEMP 36.4; O2SAT 97
[2019-11-06 07:49] LABS: Glucose Point of Care 101 (65-105)
[2019-11-06] MEDS: FLUTICASONE PROP 220 MCG (*SP) 12 GM INHALER 2 PUFF INHALATION ×2 (08:55→20:02)
[2019-11-06 09:09] VITALS: PULSE 60
[2019-11-06] MEDS: glipiZIDE 5 MG TABLET PO ×2 (09:09→17:10)
[2019-11-06] MEDS: METOPROLOL TARTRATE 12.5 MG TABLET PO ×2 (09:09→20:48)
[2019-11-06] MEDS: CALCIUM CARBONATE (OSCAL) 500 MG TABLET PO (09:09)
[2019-11-06] MEDS: CYANOCOBALAMIN 1,000 MCG TABLET 1000 MCG PO (09:10)
[2019-11-06] MEDS: PANTOPRAZOLE 40 MG TABLET PO (09:10)
[2019-11-06] MEDS: levETIRAcetam 500 MG TABLET PO ×2 (09:10→20:48)
[2019-11-06] MEDS: SERTRALINE HCL 25 MG TABLET PO (09:10)
[2019-11-06] MEDS: LOSARTAN POTASSIUM 100 MG TABLET PO (09:10)
[2019-11-06] MEDS: TOLNAFTATE 1% POWDER 45 GM BTL 1 APPLIC TOPICAL ×2 (09:11→20:50)
[2019-11-06 12:19] LABS: Glucose Point of Care 106 (65-105)
[2019-11-06 14:00] VITALS: BP 152/68; PULSE 64; RESP 18; TEMP 36.6; O2SAT 98
--- NOTE | 2019-11-06 14:52 | PCDIET ---
Nutrition Follow-Up Complete: Nutrition Diagnosis: Obesity related to history of excessive energy intake as evidenced by BMI of 46.4. Nutrition Goal: Patient will continue to consume 75% of meals or greater. Goal met. Patient consumed average of 90% of meals since last review. Diet is diabetic, carbohydrate controlled, which is appropriate. Last recorded weight is 100.6 kg. Recommend obtaining new weight. Bowel Motility: +BM on 11/04/19. Labs Reviewed: Glu (106) Meds Noted: Albuterol, Oscal, Colace, Vitamin B12, Glucotrol, Protonix, Coumadin Additional Notes: Left buttock abrasion. No other skin issues documented. Will continue to monitor with same goals. Nutrition Monitoring and Evaluation: Follow up every 7 days.
--- NOTE | 2019-11-06 15:09 | WPDNEURORHBP ---
Subjective Date/time seen: 11/06/19 15:09 Interval history: this 73-year-old woman is here because of metabolic acidosis with debility generalized weakness superimposed on the previous diabetic neuropathy and right-sided weakness and right-sided visual field defect she is improving slowly her INR is coming up nicely on 3 milligram of Coumadin daily she does have some leg swelling of the legs however is stable walking about 70 feet overall she is better She denies any headache nausea vomiting chest pain shortness of breath fever chills sore throat Review of Systems Review of Systems: All systems reviewed & are unremarkable except as noted in HPI and below Functional Status Ambulation Ability Ability to Ambulate 10 Feet: Independent Ability to Ambulate 50 Feet With 2 Turns: Independent Ability to Ambulate 150 Feet: Independent Ambulation Assistive Devices: Walker, Wheeled Transfers Ability Ability to Transfer In/Out of Chair: Independent Exam Const: General: comfortable and no acute distress HENMT: General nose exam: Normal nares present Mouth: Yes moist mucous membranes Eyes: General: appearance normal, both eyes and all related structures Neck: Neck: supple and no JVD Resp: Effort & Inspection: normal respiratory effort Auscultation: clear to auscultation bilaterally Cardio: Rate: regular rate Rhythm: regular rhythm GI: GI Palp: Yes Soft to palpation Auscultation: normal bowel sounds Skin: General skin exam: normal color and no rashes or lesions noted Neuro: Other: the patient is strength in general is improving she is walking better doing fairly well speech and language functions are normal can was options normal right-sided weakness has improved which is long-standing visual field defect remains the same. Extrem: General: normal to inspection Psych: Mental Status: mental status grossly normal Objective Data Vital Signs Vital Signs: Vital Signs - 24 hr 11/05/19 19:59 11/05/19 22:00 11/06/19 06:00 Temperature 36.2 C L 36.4 C Pulse Rate 62 61 52 L Respiratory Rate 20 19 Blood Pressure 150/56 H 150/55 H Pulse Oximetry 100 97 11/06/19 09:09 11/06/19 14:00 Temperature 36.6 C Pulse Rate 60 64 Respiratory Rate 18 Blood Pressure 152/68 H Pulse Oximetry 98 Intake/Output Intake/Output: Intake & Output 04/25/20 04/26/20 04/27/20 04/28/20 23:59 23:59 23:59 23:59 Intake Total 720 580 720 480 Balance 720 580 720 480 Meds/Results Medications: Active Medications Generic Name Dose Route Start Last Admin Trade Name Augustinq PRN Reason Stop Dose Admin Hydrocodone Bitart/Acetaminophen 1 tab 11/01/19 15:46 [place] 5-325 Mg PO QID PRN Back Pain Albuterol 1 puff 11/01/19 15:46 Proventil Hfa INHALATION BID PRN Shortness Of Breath Aspirin 81 mg 11/01/19 21:00 11/05/19 19:57 Aspirin Ec PO 81 mg HS KAREEM Administration Calcium Carbonate 500 mg 11/02/19 09:00 11/06/19 09:09 Oscal 500 Mg PO 12/02/19 09:01 500 mg DAILY KAREEM Administration Cyanocobalamin 1,000 mcg 11/02/19 09:00 11/06/19 09:10 Vitamin B-12 Tab PO 1,000 mcg DAILY KAREEM Administration Docusate Sodium 100 mg 11/01/19 15:46 Colace Capsule PO Q12HR PRN constipation Fluticasone Propionate 2 puff 11/01/19 20:00 11/06/19 08:55 Flovent INHALATION 2 puff Q12HRT KAREEM Administration Glipizide 5 mg 11/01/19 17:00 11/06/19 09:09 Glucotrol PO 5 mg BIDWM KAREEM Administration Latanoprost 1 drop 11/01/19 21:00 11/05/19 19:58 Xalatan EACH EYE 1 drop HS KAREEM Administration Levetiracetam 500 mg 11/01/19 21:00 11/06/19 09:10 Keppra Tablet PO 500 mg Q12HR KAREEM Administration Lorazepam 0.5 mg 11/01/19 15:46 11/05/19 20:07 Ativan Tab PO 0.5 mg BID PRN Administration Insomnia Losartan Potassium 100 mg 11/02/19 09:00 11/06/19 09:10 Cozaar PO 100 mg DAILY KAREEM Administration Metoprolol Tartrate 12.5 mg
[2019-11-06 16:00] VITALS: PULSE 64; RESP 18; O2SAT 98
[2019-11-06 17:04] LABS: Glucose Point of Care 124 (65-105)
[2019-11-06] MEDS: WARFARIN (*PBKC) 3 MG TABLET PO (17:10)
[2019-11-06] MEDS: LATANOPROST 0.005% OP SOLN 2.5 ML BTL 1 DROP EACH EYE (20:47)
[2019-11-06] MEDS: ASPIRIN 81 MG ENTERIC TABLET PO (20:47)
[2019-11-06 20:48] VITALS: PULSE 62
[2019-11-06] MEDS: LORAZEPAM 0.5 MG TABLET PO (20:56)
[2019-11-06 22:00] VITALS: BP 161/67; PULSE 92; RESP 20; TEMP 36.6; O2SAT 95
[2019-11-07 04:54] LABS: INR 2.6
[2019-11-07 06:00] VITALS: BP 165/64; PULSE 53; RESP 19; TEMP 36.2; O2SAT 97
[2019-11-07] MEDS: FLUTICASONE PROP 220 MCG (*SP) 12 GM INHALER 2 PUFF INHALATION ×2 (06:28→19:12)
[2019-11-07 07:03] LABS: Glucose Point of Care 110 (65-105)
[2019-11-07 08:00] VITALS: PULSE 53; RESP 19; O2SAT 97
[2019-11-07] MEDS: levETIRAcetam 500 MG TABLET PO ×2 (09:46→20:18)
[2019-11-07] MEDS: METOPROLOL TARTRATE 12.5 MG TABLET PO ×2 (09:48→20:17)
[2019-11-07] MEDS: CALCIUM CARBONATE (OSCAL) 500 MG TABLET PO (09:48)
[2019-11-07] MEDS: SERTRALINE HCL 25 MG TABLET PO (09:49)
[2019-11-07] MEDS: glipiZIDE 5 MG TABLET PO ×2 (09:50→16:16)
[2019-11-07] MEDS: TOLNAFTATE 1% POWDER 45 GM BTL 1 APPLIC TOPICAL ×2 (09:50→20:18)
[2019-11-07] MEDS: PANTOPRAZOLE 40 MG TABLET PO (09:50)
[2019-11-07] MEDS: LOSARTAN POTASSIUM 100 MG TABLET PO (09:51)
[2019-11-07] MEDS: CYANOCOBALAMIN 1,000 MCG TABLET 1000 MCG PO (09:53)
--- NOTE | 2019-11-07 13:25 | WPDNEURORHBP ---
Subjective Date/time seen: 11/07/19 13:25 Interval history: this 73-year-old woman is here after having had metabolic acidosis with generalized weakness and superimposed on diabetic neuropathy and right-sided weakness and right-sided visual field defect from all of which she is improving she denies any new complaints headache nausea vomiting chest pain shortness of breath her INR is about 2.6 without any evidence of bleeding on clinical grounds she at present is on 3 milligram of Coumadin her home dose however is to with which she was running low INR will O2 so we need to adjust her Coumadin little bit Review of Systems Review of Systems: All systems reviewed & are unremarkable except as noted in HPI and below Functional Status Ambulation Ability Ability to Ambulate 10 Feet: Independent Ability to Ambulate 50 Feet With 2 Turns: Independent Ability to Ambulate 150 Feet: Independent Ambulation Assistive Devices: Walker, Wheeled Transfers Ability Ability to Transfer In/Out of Chair: Independent Exam Const: General: comfortable and no acute distress HENMT: General nose exam: Normal nares present Mouth: Yes moist mucous membranes Eyes: General: appearance normal, both eyes and all related structures Neck: Neck: supple and no JVD Resp: Effort & Inspection: normal respiratory effort Auscultation: clear to auscultation bilaterally Cardio: Rate: regular rate Rhythm: regular rhythm GI: GI Palp: Yes Soft to palpation Auscultation: normal bowel sounds Skin: General skin exam: normal color and no rashes or lesions noted Neuro: Other: patient is speech and language functions are normal her previous deficit has improved as for as the weakness is concerned her generalized weakness is improved and overall picture is of improvement comparing to the time she came to us from the acute medical floor Extrem: General: normal to inspection Psych: Mental Status: mental status grossly normal Objective Data Vital Signs Vital Signs: Vital Signs - 24 hr 11/06/19 14:00 11/06/19 16:00 11/06/19 20:48 Temperature 36.6 C Pulse Rate 64 64 62 Respiratory Rate 18 18 Blood Pressure 152/68 H Pulse Oximetry 98 98 11/06/19 22:00 11/07/19 06:00 Temperature 36.6 C 36.2 C L Pulse Rate 92 53 L Respiratory Rate 20 19 Blood Pressure 161/67 H 165/64 H Pulse Oximetry 95 97 Intake/Output Intake/Output: Intake & Output 04/26/20 11/05/19 11/06/19 11/07/19 23:59 23:59 23:59 23:59 Intake Total 580 720 720 480 Balance 580 720 720 480 Meds/Results Medications: Active Medications Generic Name Dose Route Start Last Admin Trade Name Freq PRN Reason Stop Dose Admin Hydrocodone Bitart/Acetaminophen 1 tab 11/01/19 15:46 [place] 5-325 Mg PO QID PRN Back Pain Albuterol 1 puff 11/01/19 15:46 Proventil Hfa INHALATION BID PRN Shortness Of Breath Aspirin 81 mg 11/01/19 21:00 11/06/19 20:47 Aspirin Ec PO 81 mg HS KAREEM Administration Calcium Carbonate 500 mg 11/02/19 09:00 11/07/19 09:48 Oscal 500 Mg PO 12/02/19 09:01 500 mg DAILY KAREEM Administration Cyanocobalamin 1,000 mcg 11/02/19 09:00 11/07/19 09:53 Vitamin B-12 Tab PO 1,000 mcg DAILY KAREEM Administration Docusate Sodium 100 mg 11/01/19 15:46 Colace Capsule PO Q12HR PRN constipation Fluticasone Propionate 2 puff 11/01/19 20:00 11/07/19 06:28 Flovent INHALATION 2 puff Q12HRT KAREEM Administration Glipizide 5 mg 11/01/19 17:00 11/07/19 09:50 Glucotrol PO 5 mg BIDWM KAREEM Administration Latanoprost 1 drop 11/01/19 21:00 11/06/19 20:47 Xalatan EACH EYE 1 drop HS KAREEM Administration Levetiracetam 500 mg 11/01/19 21:00 11/07/19 09:46 Keppra Tablet PO 500 mg Q12HR KAREEM Administration Lorazepam 0.5 mg 11/01/19 15:46 11/06/19 20:56 Ativan Tab PO 0.5 mg BID PRN Administration Insomnia Losartan Potassium 100 mg 11/02/19 09:00 11/07/19 09:51 [place]
[2019-11-07 14:00] VITALS: BP 148/70; PULSE 72; RESP 18; TEMP 36.4; O2SAT 96
[2019-11-07] MEDS: WARFARIN (*PBKC) 2.5 MG TABLET PO (16:03)
[2019-11-07 16:49] LABS: Alanine Aminotransferase 188 U/L (4-35); Albumin Level 3.1 g/dL (3.5-5.1); Alkaline Phosphatase 196 U/L (38-126); Aspartate Amino Transferase 246 U/L (14-36); Bilirubin,Total 1.1 mg/dL (0.2-1.3); Blood Urea Nitrogen 23 mg/dL (7-17); Calcium 8.2 mg/dL (8.4-10.2); Carbon Dioxide 28 mmol/L (22-30); Chloride 105 mmol/L (98-107); Estimated Glomerular Filt Rate 44; Glucose 101 mg/dL (65-105); Potassium 3.9 mmol/L (3.4-5.0); Sodium 138 mmol/L (137-145)
[2019-11-07 19:29] LABS: Glucose Point of Care 154 (65-105)
[2019-11-07 20:17] VITALS: PULSE 76
[2019-11-07] MEDS: LATANOPROST 0.005% OP SOLN 2.5 ML BTL 1 DROP EACH EYE (20:18)
[2019-11-07] MEDS: ASPIRIN 81 MG ENTERIC TABLET PO (20:18)
[2019-11-07] MEDS: LORAZEPAM 0.5 MG TABLET PO (21:17)
[2019-11-07 22:00] VITALS: BP 160/54; PULSE 60; RESP 18; TEMP 36.4; O2SAT 99
[2019-11-08 04:59] LABS: INR 3.2; Prothrombin Time 32.1 Seconds (11.1-14.7)
[2019-11-08 05:05] LABS: Alanine Aminotransferase 159 U/L (4-35); Albumin Level 2.8 g/dL (3.5-5.1); Alkaline Phosphatase 175 U/L (38-126); Aspartate Amino Transferase 194 U/L (14-36); Bilirubin,Total 0.8 mg/dL (0.2-1.3); Blood Urea Nitrogen 22 mg/dL (7-17); Calcium 7.9 mg/dL (8.4-10.2); Carbon Dioxide 27 mmol/L (22-30); Chloride 108 mmol/L (98-107); Estimated Glomerular Filt Rate 49; Glucose 114 mg/dL (65-105); Potassium 3.9 mmol/L (3.4-5.0); Sodium 139 mmol/L (137-145)
[2019-11-08 06:00] VITALS: BP 160/61; PULSE 52; RESP 18; TEMP 36.4; O2SAT 97
[2019-11-08 06:56] LABS: Glucose Point of Care 123 (65-105)
[2019-11-08] MEDS: FLUTICASONE PROP 220 MCG (*SP) 12 GM INHALER 2 PUFF INHALATION ×2 (08:28→19:56)
[2019-11-08] MEDS: LOSARTAN POTASSIUM 100 MG TABLET PO (09:13)
[2019-11-08] MEDS: PANTOPRAZOLE 40 MG TABLET PO (09:13)
[2019-11-08] MEDS: SERTRALINE HCL 25 MG TABLET PO (09:13)
[2019-11-08] MEDS: glipiZIDE 5 MG TABLET PO ×2 (09:13→17:07)
[2019-11-08] MEDS: levETIRAcetam 500 MG TABLET PO ×2 (09:13→20:16)
[2019-11-08] MEDS: CALCIUM CARBONATE (OSCAL) 500 MG TABLET PO (09:13)
[2019-11-08] MEDS: CYANOCOBALAMIN 1,000 MCG TABLET 1000 MCG PO (09:13)
[2019-11-08 09:14] VITALS: PULSE 56
[2019-11-08] MEDS: TOLNAFTATE 1% POWDER 45 GM BTL 1 APPLIC TOPICAL ×2 (09:14→20:16)
[2019-11-08] MEDS: METOPROLOL TARTRATE 12.5 MG TABLET PO ×2 (09:14→20:16)
[2019-11-08] MEDS: FUROSEMIDE 20 MG TABLET PO (09:16)
--- NOTE | 2019-11-08 10:55 | PC.NURSE ---
pt states nurse removed sutures yesterday.
--- NOTE | 2019-11-08 11:59 | WPDNEURORHBP ---
Subjective Date/time seen: 11/08/19 11:59 Interval history: this 73-year-old Reginald is here post metabolic acidosis and multiple medical issues with remote history of having had stroke with right-sided hemiparesis and right-sided visual field defect she is improving overall does not have any new specific complaints her on a INR is 3.2 so we have cut back on her Coumadin to 2 milligram daily she does not have any clinical evidence of bleeding she denies any headache nausea vomiting chest pain or shortness of breath Review of Systems Review of Systems: All systems reviewed & are unremarkable except as noted in HPI and below Functional Status Ambulation Ability Ability to Ambulate 10 Feet: Independent Ability to Ambulate 50 Feet With 2 Turns: Independent Ability to Ambulate 150 Feet: Independent Ambulation Assistive Devices: Walker, Wheeled Transfers Ability Ability to Transfer In/Out of Chair: Independent Exam Const: General: comfortable and no acute distress HENMT: General nose exam: Normal nares present Mouth: Yes moist mucous membranes Eyes: General: appearance normal, both eyes and all related structures Other: right-sided visual field defect stable Neck: Neck: supple and no JVD Resp: Effort & Inspection: normal respiratory effort Auscultation: clear to auscultation bilaterally Cardio: Rate: regular rate Rhythm: regular rhythm GI: GI Palp: Yes Soft to palpation Auscultation: normal bowel sounds Skin: General skin exam: normal color and no rashes or lesions noted Neuro: Other: patient is awake and alert a [place] oriented times place and person is speech and language functions are normal cranial examinations are normal except right-sided visual field defect her weakness is improving and she is able to do a lot more than what she came in with Extrem: General: normal to inspection Psych: Mental Status: mental status grossly normal Objective Data Vital Signs Vital Signs: Vital Signs - 24 hr 11/07/19 14:00 11/07/19 20:17 11/07/19 22:00 Temperature 36.4 C 36.4 C Pulse Rate 72 76 60 Respiratory Rate 18 18 Blood Pressure 148/70 H 160/54 H Pulse Oximetry 96 99 11/08/19 06:00 11/08/19 09:14 Temperature 36.4 C Pulse Rate 52 L 56 L Respiratory Rate 18 Blood Pressure 160/61 H Pulse Oximetry 97 Intake/Output Intake/Output: Intake & Output 04/27/20 11/06/19 11/07/19 11/08/19 23:59 23:59 23:59 23:59 Intake Total 720 720 720 360 Balance 720 720 720 360 Meds/Results Medications: Active Medications Generic Name Dose Route Start Last Admin Trade Name Freq PRN Reason Stop Dose Admin Hydrocodone Bitart/Acetaminophen 1 tab 11/01/19 15:46 [place] 5-325 Mg PO QID PRN Back Pain Albuterol 1 puff 11/01/19 15:46 Proventil Hfa INHALATION BID PRN Shortness Of Breath Aspirin 81 mg 11/01/19 21:00 11/07/19 20:18 Aspirin Ec PO 81 mg HS KAREEM Administration Calcium Carbonate 500 mg 11/02/19 09:00 11/08/19 09:13 Oscal 500 Mg PO 12/02/19 09:01 500 mg DAILY KAREEM Administration Cyanocobalamin 1,000 mcg 11/02/19 09:00 11/08/19 09:13 Vitamin B-12 Tab PO 1,000 mcg DAILY KAREEM Administration Docusate Sodium 100 mg 11/01/19 15:46 Colace Capsule PO Q12HR PRN constipation Fluticasone Propionate 2 puff 11/01/19 20:00 11/08/19 08:28 Flovent INHALATION 2 puff Q12HRT KAREEM Administration Furosemide 20 mg 11/08/19 09:00 11/08/19 09:16 Lasix Tablet PO 20 mg DAILY KAREEM Administration Glipizide 5 mg 11/01/19 17:00 11/08/19 09:13 Glucotrol PO 5 mg BIDWM KAREEM Administration Latanoprost 1 drop 11/01/19 21:00 11/07/19 20:18 Xalatan EACH EYE 1 drop HS KAREEM Administration Levetiracetam 500 mg 11/01/19 21:00 11/08/19 09:13 Keppra Tablet PO 500 mg Q12HR KAREEM Administration Lorazepam 0.5 mg 11/01/19 15:46 11/07/19 21:17 Ativan Tab PO 0.5 mg BID PRN Administration Insomnia L
[2019-11-08 14:00] VITALS: BP 168/55; PULSE 52; RESP 18; TEMP 36.3; O2SAT 99
[2019-11-08 16:58] LABS: Glucose Point of Care 131 (65-105)
[2019-11-08] MEDS: WARFARIN (*PBKC) 2 MG TABLET PO (17:07)
[2019-11-08 20:16] VITALS: PULSE 68
[2019-11-08] MEDS: LORAZEPAM 0.5 MG TABLET PO (20:16)
[2019-11-08] MEDS: LATANOPROST 0.005% OP SOLN 2.5 ML BTL 1 DROP EACH EYE (20:16)
[2019-11-08] MEDS: ASPIRIN 81 MG ENTERIC TABLET PO (20:16)
[2019-11-08 22:00] VITALS: BP 153/60; PULSE 68; RESP 16; TEMP 36.4; O2SAT 100
[2019-11-09 04:49] LABS: Basophils Percent Auto 0.2 % (0.2-1.2); Eosinophils Absolute Auto 0.1 K/mm3 (0-0.3); Eosinophils Percent Auto 0.8 % (0-4.4); Hematocrit 34.5 % (37.0-47.0); Hemoglobin 11.3 g/dL (12.0-15.0); Immature Granulocyte Absolute 0.04 K/mm3 (0.00-0.031); Immature Granulocyte Percent A 0.5 % (0-0.5); Immature Platelet Fraction Pct 12.9 % (0.9-11.2); Lymphocytes Absolute Auto 2.01 K/mm3 (0.9-3.2); Mean Corpuscular HGB Conc 32.8 g/dl (32-36); Mean Corpuscular Hemoglobin 30.3 pg (26-34); Mean Corpuscular Volume 92.5 fl (80-100); Mean Platelet Volume 13.5 fl (7.4-10.4); Monocytes Absolute Auto 0.7 K/mm3 (0.1-0.6); Monocytes Percent Auto 8.2 % (2.6-8.5); Neutrophils Absolute Auto 5.6 K/mm3 (1.3-6.7); Neutrophils Percent Auto 66.3 % (45.5-73.1); Platelet Count Result 164 k/mm3 (150-375); Red Blood Count 3.73 M/mm3 (4.2-5.4); Red Cell Distribution Width 16.7 % (11.5-14.5); White Blood Count 8.4 K/mm3 (4.5-10.0)
[2019-11-09 04:59] LABS: INR 3.9; Prothrombin Time 37.5 Seconds (11.1-14.7)
[2019-11-09 05:06] LABS: Blood Urea Nitrogen 25 mg/dL (7-17); Calcium 7.8 mg/dL (8.4-10.2); Carbon Dioxide 26 mmol/L (22-30); Chloride 107 mmol/L (98-107); Estimated Glomerular Filt Rate 49; Glucose 101 mg/dL (65-105); Potassium 3.9 mmol/L (3.4-5.0); Sodium 139 mmol/L (137-145)
[2019-11-09 06:00] VITALS: BP 143/51; PULSE 52; RESP 18; TEMP 36.4; O2SAT 97
[2019-11-09 06:43] LABS: Glucose Point of Care 96 (65-105)
[2019-11-09 09:31] VITALS: PULSE 60
[2019-11-09] MEDS: TOLNAFTATE 1% POWDER 45 GM BTL 1 APPLIC TOPICAL ×2 (09:31→20:33)
[2019-11-09] MEDS: glipiZIDE 5 MG TABLET PO ×2 (09:31→16:53)
[2019-11-09] MEDS: LOSARTAN POTASSIUM 100 MG TABLET PO (09:31)
[2019-11-09] MEDS: CYANOCOBALAMIN 1,000 MCG TABLET 1000 MCG PO (09:31)
[2019-11-09] MEDS: METOPROLOL TARTRATE 12.5 MG TABLET PO ×2 (09:31→20:31)
[2019-11-09] MEDS: CALCIUM CARBONATE (OSCAL) 500 MG TABLET PO (09:31)
[2019-11-09] MEDS: levETIRAcetam 500 MG TABLET PO ×2 (09:31→20:32)
[2019-11-09] MEDS: SERTRALINE HCL 25 MG TABLET PO (09:31)
[2019-11-09] MEDS: PANTOPRAZOLE 40 MG TABLET PO (09:31)
[2019-11-09] MEDS: FUROSEMIDE 20 MG TABLET PO (09:31)
--- NOTE | 2019-11-09 13:44 | WPDNEURORHBP ---
Subjective Date/time seen: 11/09/19 13:44 Interval history: This 73-year-old woman on chronic anticoagulation for having headache strokes in the past came to us after having had about of metabolic acidosis with generalized debility and weakness with multiple medical issues as documented before her liver enzymes are coming down and she is doing fairly well walking much better than before denies any headache nausea vomiting chest pain or shortness of breath her INR is relatively high so I have held her Coumadin dose today Review of Systems Review of Systems: All systems reviewed & are unremarkable except as noted in HPI and below Functional Status Ambulation Ability Ability to Ambulate 10 Feet: Independent Ability to Ambulate 50 Feet With 2 Turns: Independent Ability to Ambulate 150 Feet: Independent Ambulation Assistive Devices: Walker, Wheeled Transfers Ability Ability to Transfer In/Out of Chair: Independent Exam Const: General: no acute distress and in distress HENMT: General nose exam: Normal nares present Mouth: Yes moist mucous membranes Eyes: General: appearance normal, both eyes and all related structures Neck: Neck: supple and no JVD Resp: Effort & Inspection: normal respiratory effort Auscultation: clear to auscultation bilaterally Cardio: Rate: regular rate Rhythm: regular rhythm GI: GI Palp: Yes Soft to palpation Auscultation: normal bowel sounds Skin: General skin exam: normal color and no rashes or lesions noted Neuro: Other: patient is awake alert will oriented in time place and person generally she is doing fairly well with her debility and weakness slow needing some assistance and the need to do a for the therapy no neurological events have happened and her right-sided weakness improved the visual field defect remains stable Extrem: Other: the lower extremities are less swollen while she is keeping her leg up and also receiving Lasix Psych: Mental Status: mental status grossly normal Objective Data Vital Signs Vital Signs: Vital Signs - 24 hr 11/08/19 14:00 11/08/19 20:16 11/08/19 22:00 Temperature 36.3 C L 36.4 C Pulse Rate 52 L 68 68 Respiratory Rate 18 16 Blood Pressure 168/55 H 153/60 H Pulse Oximetry 99 100 11/09/19 06:00 11/09/19 09:31 Temperature 36.4 C Pulse Rate 52 L 60 Respiratory Rate 18 Blood Pressure 143/51 H Pulse Oximetry 97 Intake/Output Intake/Output: Intake & Output 04/2811/07/19 11/08/19 11/09/19 23:59 23:59 23:59 23:59 Intake Total 720 720 840 480 Balance 720 720 840 480 Meds/Results Medications: Active Medications Generic Name Dose Route Start Last Admin Trade Name Freq PRN Reason Stop Dose Admin Hydrocodone Bitart/Acetaminophen 1 tab 11/01/19 15:46 [place] 5-325 Mg PO QID PRN Back Pain Albuterol 1 puff 11/01/19 15:46 Proventil Hfa INHALATION BID PRN Shortness Of Breath Aspirin 81 mg 11/01/19 21:00 11/08/19 20:16 Aspirin Ec PO 81 mg HS KAREEM Administration Calcium Carbonate 500 mg 11/02/19 09:00 11/09/19 09:31 Oscal 500 Mg PO 12/02/19 09:01 500 mg DAILY KAREEM Administration Cyanocobalamin 1,000 mcg 11/02/19 09:00 11/09/19 09:31 Vitamin B-12 Tab PO 1,000 mcg DAILY KAREEM Administration Docusate Sodium 100 mg 11/01/19 15:46 Colace Capsule PO Q12HR PRN constipation Fluticasone Propionate 2 puff 11/01/19 20:00 11/08/19 19:56 Flovent INHALATION 2 puff Q12HRT KAREEM Administration Furosemide 20 mg 11/08/19 09:00 11/09/19 09:31 Lasix Tablet PO 20 mg DAILY KAREEM Administration Glipizide 5 mg 11/01/19 17:00 11/09/19 09:31 Glucotrol PO 5 mg BIDWM KAREEM Administration Latanoprost 1 drop 11/01/19 21:00 11/08/19 20:16 Xalatan EACH EYE 1 drop HS KAREEM Administration Levetiracetam 500 mg 11/01/19 21:00 11/09/19 09:31 Keppra Tablet PO 500 mg Q12HR KAREEM Administration Lorazepam 0.5 mg 11/01/19 15:46 11/08/19 2
[2019-11-09 14:00] VITALS: BP 165/69; PULSE 50; RESP 18; TEMP 36.4; O2SAT 98
[2019-11-09 16:39] LABS: Glucose Point of Care 112 (65-105)
[2019-11-09] MEDS: FLUTICASONE PROP 220 MCG (*SP) 12 GM INHALER 2 PUFF INHALATION (20:24)
[2019-11-09] MEDS: ASPIRIN 81 MG ENTERIC TABLET PO (20:30)
[2019-11-09] MEDS: LATANOPROST 0.005% OP SOLN 2.5 ML BTL 1 DROP EACH EYE (20:30)
[2019-11-09 20:31] VITALS: PULSE 62
[2019-11-09] MEDS: LORAZEPAM 0.5 MG TABLET PO (20:56)
[2019-11-09 22:00] VITALS: BP 148/48; PULSE 61; RESP 19; TEMP 36.5; O2SAT 97
[2019-11-10] VITALS (7 sets, daily range): BP systolic 151–183; BP diastolic 56–65; PULSE 51–64; RESP 17–18; TEMP 36.3–36.6; O2SAT 98
[2019-11-10 05:32] LABS: INR 3.1; Prothrombin Time 31.3 Seconds (11.1-14.7)
[2019-11-10 05:43] LABS: Blood Urea Nitrogen 26 mg/dL (7-17); Calcium 7.9 mg/dL (8.4-10.2); Carbon Dioxide 25 mmol/L (22-30); Chloride 106 mmol/L (98-107); Estimated Glomerular Filt Rate 44; Glucose 114 mg/dL (65-105); Potassium 3.8 mmol/L (3.4-5.0); Sodium 140 mmol/L (137-145)
[2019-11-10 07:03] LABS: Glucose Point of Care 105 (65-105)
[2019-11-10] MEDS: METOPROLOL TARTRATE 12.5 MG TABLET PO ×2 (09:30→20:44)
[2019-11-10] MEDS: levETIRAcetam 500 MG TABLET PO ×2 (09:31→20:46)
[2019-11-10] MEDS: CALCIUM CARBONATE (OSCAL) 500 MG TABLET PO (09:31)
[2019-11-10] MEDS: glipiZIDE 5 MG TABLET PO ×2 (09:31→17:52)
[2019-11-10] MEDS: FUROSEMIDE 20 MG TABLET PO (09:31)
[2019-11-10] MEDS: CYANOCOBALAMIN 1,000 MCG TABLET 1000 MCG PO (09:31)
[2019-11-10] MEDS: PANTOPRAZOLE 40 MG TABLET PO (09:31)
[2019-11-10] MEDS: TOLNAFTATE 1% POWDER 45 GM BTL 1 APPLIC TOPICAL ×2 (09:32→20:46)
[2019-11-10] MEDS: LOSARTAN POTASSIUM 100 MG TABLET PO (09:32)
[2019-11-10] MEDS: SERTRALINE HCL 25 MG TABLET PO (09:32)
[2019-11-10] MEDS: FLUTICASONE PROP 220 MCG (*SP) 12 GM INHALER 2 PUFF INHALATION ×2 (09:37→20:56)
[2019-11-10] MEDS: WARFARIN (*PBKC) 2 MG TABLET PO (18:14)
[2019-11-10] MEDS: LORAZEPAM 0.5 MG TABLET PO (20:43)
[2019-11-10] MEDS: ASPIRIN 81 MG ENTERIC TABLET PO (20:44)
[2019-11-10] MEDS: LATANOPROST 0.005% OP SOLN 2.5 ML BTL 1 DROP EACH EYE (20:46)
[2019-11-11] VITALS (7 sets, daily range): BP systolic 132–183; BP diastolic 46–65; PULSE 56–88; RESP 15–20; TEMP 35.7–36.6; O2SAT 97–100
[2019-11-11 05:02] LABS: INR 2.8; Prothrombin Time 29.1 Seconds (11.1-14.7)
[2019-11-11 06:39] LABS: Glucose Point of Care 108 (65-105)
[2019-11-11] MEDS: FLUTICASONE PROP 220 MCG (*SP) 12 GM INHALER 2 PUFF INHALATION ×3 (08:39→19:44)
[2019-11-11] MEDS: PANTOPRAZOLE 40 MG TABLET PO (09:30)
[2019-11-11] MEDS: levETIRAcetam 500 MG TABLET PO ×2 (09:31→20:34)
[2019-11-11] MEDS: glipiZIDE 5 MG TABLET PO ×2 (09:31→18:26)
[2019-11-11] MEDS: CYANOCOBALAMIN 1,000 MCG TABLET 1000 MCG PO (09:31)
[2019-11-11] MEDS: METOPROLOL TARTRATE 12.5 MG TABLET PO ×2 (09:31→20:35)
[2019-11-11] MEDS: SERTRALINE HCL 25 MG TABLET PO (09:31)
[2019-11-11] MEDS: FUROSEMIDE 20 MG TABLET PO (09:31)
[2019-11-11] MEDS: LOSARTAN POTASSIUM 100 MG TABLET PO (09:31)
[2019-11-11] MEDS: TOLNAFTATE 1% POWDER 45 GM BTL 1 APPLIC TOPICAL ×2 (09:32→20:35)
[2019-11-11] MEDS: CALCIUM CARBONATE (OSCAL) 500 MG TABLET PO (09:32)
[2019-11-11 17:07] LABS: Glucose Point of Care 105 (65-105)
--- NOTE | 2019-11-11 18:20 | WPDNEURORHBP ---
Subjective Date/time seen: 11/11/19 18:20 Interval history: this 73-year-old woman has completed her rehab and will be discharged tomorrow doing fairly well denies any headache nausea vomiting chest pain shortness breath fever chills or sore throat she has done remarkably well in the therapy and is doing a lot better than when she came in Review of Systems Review of Systems: All systems reviewed & are unremarkable except as noted in HPI and below Functional Status Ambulation Ability Ability to Ambulate 10 Feet: Independent Ability to Ambulate 50 Feet With 2 Turns: Independent Ability to Ambulate 150 Feet: Independent Ambulation Assistive Devices: Walker, Wheeled Transfers Ability Ability to Transfer In/Out of Chair: Independent Exam Const: General: comfortable and no acute distress HENMT: General nose exam: Normal nares present Mouth: Yes moist mucous membranes Eyes: General: appearance normal, both eyes and all related structures Neck: Neck: no JVD Resp: Effort & Inspection: normal respiratory effort Auscultation: clear to auscultation bilaterally Cardio: Rate: regular rate Rhythm: regular rhythm GI: GI Palp: Yes Soft to palpation Auscultation: normal bowel sounds Skin: General skin exam: normal color and no rashes or lesions noted Neuro: Other: patient's mental status is normal cranial nerve examination is normal except the right-sided visual field defect from the previous stroke her weakness has significantly improved bilate Extrem: General: normal to inspection Psych: Mental Status: mental status grossly normal Objective Data Vital Signs Vital Signs: Vital Signs - 24 hr 11/10/19 20:44 11/10/19 20:59 11/10/19 22:00 Temperature 36.6 C Pulse Rate 62 61 64 Respiratory Rate 18 Blood Pressure 183/65 H Pulse Oximetry 98 11/11/19 06:00 11/11/19 08:58 11/11/19 09:31 Temperature 36.6 C 35.7 C L Pulse Rate 64 56 L 62 Respiratory Rate 18 20 Blood Pressure 183/65 H 171/51 H Pulse Oximetry 98 100 11/11/19 10:00 11/11/19 15:24 Temperature 36.4 C L Pulse Rate 62 88 Respiratory Rate 20 15 Blood Pressure 132/46 L Pulse Oximetry 100 98 Intake/Output Intake/Output: Intake & Output 04/30/20 05/01/20 05/02/20 05/03/20 23:59 23:59 23:59 23:59 Intake Total 840 720 720 480 Balance 840 720 720 480 Meds/Results Medications: Active Medications Generic Name Dose Route Start Last Admin Trade Name Freq PRN Reason Stop Dose Admin Hydrocodone Bitart/Acetaminophen 1 tab 11/01/19 15:46 11/11/19 09:29 [place] 5-325 Mg PO 1 tab QID PRN Administration Back Pain Albuterol 1 puff 11/01/19 15:46 Proventil Hfa INHALATION BID PRN Shortness Of Breath Aspirin 81 mg 11/01/19 21:00 11/10/19 20:44 Aspirin Ec PO 81 mg HS KAREEM Administration Calcium Carbonate 500 mg 11/02/19 09:00 11/11/19 09:32 [place] 500 Mg PO 12/02/19 09:01 500 mg DAILY KAREEM Administration Cyanocobalamin 1,000 mcg 11/02/19 09:00 11/11/19 09:31 Vitamin B-12 Tab PO 1,000 mcg DAILY KAREEM Administration Docusate Sodium 100 mg 11/01/19 15:46 Colace Capsule PO Q12HR PRN constipation Fluticasone Propionate 2 puff 11/01/19 20:00 11/11/19 08:39 Flovent INHALATION 2 puff Q12HRT KAREEM Administration Furosemide 20 mg 11/08/19 09:00 11/11/19 09:31 Lasix Tablet PO 20 mg DAILY KAREEM Administration Glipizide 5 mg 11/01/19 17:00 11/11/19 09:31 Glucotrol PO 5 mg BIDWM KAREEM Administration Latanoprost 1 drop 11/01/19 21:00 11/10/19 20:46 Xalatan EACH EYE 1 drop HS KAREEM Administration Levetiracetam 500 mg 11/01/19 21:00 11/11/19 09:31 Keppra Tablet PO 500 mg Q12HR KAREEM Administration Lorazepam 0.5 mg 11/01/19 15:46 11/10/19 20:43 Ativan Tab PO 0.5 mg BID PRN Administration Insomnia Losartan Potassium 100 mg 11/02/19 09:00 11/11/19 09:31 Cozaar PO 100 mg DAILY KAREEM Administration
[2019-11-11] MEDS: WARFARIN (*PBKC) 2 MG TABLET PO (18:26)
[2019-11-11] MEDS: LATANOPROST 0.005% OP SOLN 2.5 ML BTL 1 DROP EACH EYE (20:34)
[2019-11-11] MEDS: ASPIRIN 81 MG ENTERIC TABLET PO (20:34)
[2019-11-11] MEDS: LORAZEPAM 0.5 MG TABLET PO (20:36)
[2019-11-12 06:00] VITALS: BP 169/59; PULSE 51; RESP 21; TEMP 36.2; O2SAT 97
[2019-11-12 06:26] LABS: Glucose Point of Care 123 (65-105)
[2019-11-12] MEDS: FLUTICASONE PROP 220 MCG (*SP) 12 GM INHALER 2 PUFF INHALATION (08:49)
[2019-11-12] MEDS: glipiZIDE 5 MG TABLET PO (09:32)
[2019-11-12] MEDS: CALCIUM CARBONATE (OSCAL) 500 MG TABLET PO (09:32)
[2019-11-12 09:33] VITALS: PULSE 51
[2019-11-12] MEDS: LOSARTAN POTASSIUM 100 MG TABLET PO (09:33)
[2019-11-12] MEDS: METOPROLOL TARTRATE 12.5 MG TABLET PO (09:33)
[2019-11-12] MEDS: SERTRALINE HCL 25 MG TABLET PO (09:33)
[2019-11-12] MEDS: levETIRAcetam 500 MG TABLET PO (09:33)
[2019-11-12] MEDS: TOLNAFTATE 1% POWDER 45 GM BTL 1 APPLIC TOPICAL (09:33)
[2019-11-12] MEDS: CYANOCOBALAMIN 1,000 MCG TABLET 1000 MCG PO (09:33)
[2019-11-12] MEDS: PANTOPRAZOLE 40 MG TABLET PO (09:33)
[2019-11-12] MEDS: FUROSEMIDE 20 MG TABLET PO (09:33)
--- NOTE | 2019-11-17 12:07 | DS_ITS ---
DATE OF DISCHARGE: 11/12/2019 DISCHARGE ACUTE REHAB DIAGNOSIS: Metabolic acidosis. Rehab impairment category of 20 miscellaneous and the etiological diagnosis of hyperchloremic non-anion gap metabolic acidosis. DISCHARGE ACTIVE COMORBID CONDITIONS: 1. Type 2 diabetes mellitus with peripheral neuropathy. 2. Diastolic dysfunction. 3. Acute renal failure. 4. Generalized weakness. 5. History of low back surgery at L4-5 that is microdiskectomy. REASON FOR ADMISSION: This 73-year-old left-handed female, with prior medical history of type 2 diabetes mellitus, peripheral neuropathy, diastolic dysfunction, and acute renal failure, presented to the emergency room on 10/25/2019, with the complaints of generalized weakness in her arms, legs of several days duration in addition to the history of 2 falls over the last couple of weeks. The patient was on chronic long-term anticoagulation, but her initial INR was 5.9. In addition, she was found to have acute renal failure. Hepatic enzymes elevation, elevated CK of 16,100. She was also complaining of diarrhea along with a poor appetite and weight loss of 10 pounds. Her initial chest x-ray was negative. She developed hyper cool oral mucosa with anion gap metabolic acidosis, which is attributed to the renal disease with rhabdomyolysis. Her metabolic acidosis persisted when she was switched to intravenous IV fluids of D5W. Her urine culture was positive for enterococcus, which was treated with IV antibiotics. She received magnesium for the replacement, was placed on the pain medication for the complaints of pain, was discharged in the rehab on Warfarin. Her nasopharyngeal swab was negative for COVID-19. She had not traveled outside the [place] or had contact with someone ill in the past 21 days and has traveled to the area of the [place] She has had multiple strokes involving one side or other side, though she has been able to carry on the conversation quite well. LEVEL OF FUNCTION AT THE TIME OF ADMISSION: The patient was independent in eating, required setup for oral hygiene, substantial assistance for toileting, bathing, setup for the upper body dressing, substantial assistance for lower body dressing and footwear, supervision for rolling in bed, partial assistance for sit to lying, lying to sitting, supervision for sit to stand, chair transfer, toilet transfer, partial assistance for car transfer, supervision for walking 10 feet, 50 feet with 2 turns, walking 10 feet on uneven surfaces, curb or step, but she refused walking 150 feet and 4 steps on the uneven surfaces. She was unable to walk 12 steps on uneven surfaces. She required supervision for picking up object, substantial assistance for wheelchair for 50 feet and 150 feet. Anticipated rehab goals at the time of admission were to make her independent in most of the modalities except the setup for the toileting, supervision for bathing. She will be unable to take 12 steps on uneven surfaces. LEVEL OF FUNCTION AT THE TIME OF DISCHARGE: She became independent eating, oral hygiene, upper body dressing, lower body dressing, footwear, rolling in bed, sit to lying, lying to sit, sit to stand, chair transfer, toilet transfer, walking 10 feet, 50 feet with 2 turns, 150 feet, and 10 feet on uneven surfaces, picking up object. She was requiring partial assistance for bathing. She required setup for the car transfer, supervision for curb or step, 4 steps and substantial assistance for the walking, and was taking the wheelchair for 50 feet though she was unable to take the wheelchair for 150 feet. HOSPITAL COURSE: During the hospitalization, she was involved actively in the physical therapy and occupation therapy. During the hospitalization, she was in the [place] for taken care by the hospitalist. At the time of discharge, she was able
== END 2019-11-12 13:05 | disposition home health service (06) | DRG 641 ==
PROVIDERS: Admitting Provider Psychiatry & Neurology Neurology; PCP Family Medicine; Visit Provider Psychiatry & Neurology Neurology
DX: E87.2 Acidosis (principal); M62.82 Rhabdomyolysis; Z68.42 Body mass index [BMI] 45.0-49.9, adult; E66.01 Morbid (severe) obesity due to excess calories; E78.5 Hyperlipidemia, unspecified; E11.22 Type 2 diabetes mellitus with diabetic chronic kidney disease; E11.51 Type 2 diabetes mellitus with diabetic peripheral angiopathy without gangrene; E11.42 Type 2 diabetes mellitus with diabetic polyneuropathy; F41.8 Other specified anxiety disorders; H53.8 Other visual disturbances; I13.10 Hypertensive heart and chronic kidney disease without heart failure, with stage 1 through stage 4 chronic kidney disease, or unspecified chronic kidney disease; I25.10 Atherosclerotic heart disease of native coronary artery without angina pectoris; J45.909 Unspecified asthma, uncomplicated; K21.9 Gastro-esophageal reflux disease without esophagitis; M79.89 Other specified soft tissue disorders; N18.3 Chronic kidney disease, stage 3 (moderate); R74.0 Nonspecific elevation of levels of transaminase and lactic acid dehydrogenase [LDH]; R29.6 Repeated falls; R79.1 Abnormal coagulation profile; Z85.828 Personal history of other malignant neoplasm of skin; Z96.651 Presence of right artificial knee joint; Z79.01 Long term (current) use of anticoagulants; Z87.891 Personal history of nicotine dependence; Z86.73 Personal history of transient ischemic attack (TIA), and cerebral infarction without residual deficits; Z79.4 Long term (current) use of insulin
CPT/HCPCS: 36415; 80048; 80053; 82550; 83735; 85025; 85055; 85610; 93970; 94640; 97110; 97116; 97161; 97166; 97530; 97535; A9270

== ENCOUNTER 2022-10-11 15:30 | Outpatient (RCR) | payer MEDICARE, OTHER, SELFPAY | END 2022-11-30 10:23 | disposition home or self-care (01) | LOC: ANHDMC 15:30 | PROVIDERS: PCP Internal Medicine; Visit Provider Nurse Practitioner Family | DX: E11.65 Type 2 diabetes mellitus with hyperglycemia (principal); Z71.89 Other specified counseling | CPT/HCPCS: G0108 ==

== ENCOUNTER 2022-12-20 15:30 | Outpatient (RCR) | payer MEDICARE, OTHER, SELFPAY ==
[2022-12-14 15:20] VITALS: BMI 40.5
== END 2023-03-09 09:48 | disposition home or self-care (01) ==
LOC: ANHDMC 15:30
PROVIDERS: PCP Internal Medicine; Visit Provider Nurse Practitioner Family
DX: E11.65 Type 2 diabetes mellitus with hyperglycemia (principal); Z71.3 Dietary counseling and surveillance; Z71.89 Other specified counseling
CPT/HCPCS: 97802; G0108

== ENCOUNTER 2023-04-11 14:59 | Outpatient (RCR) | payer MEDICARE, OTHER, SELFPAY | END 2023-06-27 09:33 | disposition home or self-care (01) | LOC: ANHDMC 14:59 | PROVIDERS: PCP Family Medicine; Visit Provider Nurse Practitioner Family | DX: E11.65 Type 2 diabetes mellitus with hyperglycemia (principal); Z71.89 Other specified counseling | CPT/HCPCS: G0108 ==

== ENCOUNTER 2023-08-15 16:50 | Emergency (ER) | payer OTHER, MEDICARE, SELFPAY ==
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
[2023-08-15 17:13] VITALS: BP 130/97; PULSE 64; RESP 16; TEMP 36.5; O2SAT 100
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
== END 2023-08-15 18:50 | disposition home or self-care (01) ==
PROVIDERS: Emergency Provider Nurse Practitioner Family; PCP Family Medicine
DX: M17.12 Unilateral primary osteoarthritis, left knee (principal); M77.8 Other enthesopathies, not elsewhere classified; S16.1XXA Strain of muscle, fascia and tendon at neck level, initial encounter; V43.62XA Car passenger injured in collision with other type car in traffic accident, initial encounter; J45.909 Unspecified asthma, uncomplicated; I48.91 Unspecified atrial fibrillation; I25.10 Atherosclerotic heart disease of native coronary artery without angina pectoris; N80.9 Endometriosis, unspecified; M79.7 Fibromyalgia; I10 Essential (primary) hypertension; Z86.73 Personal history of transient ischemic attack (TIA), and cerebral infarction without residual deficits; K21.9 Gastro-esophageal reflux disease without esophagitis; E78.5 Hyperlipidemia, unspecified; E66.01 Morbid (severe) obesity due to excess calories; Z68.39 Body mass index [BMI] 39.0-39.9, adult; E11.42 Type 2 diabetes mellitus with diabetic polyneuropathy; Z85.828 Personal history of other malignant neoplasm of skin; F41.9 Anxiety disorder, unspecified
CPT/HCPCS: 72050; 73030; 73562; 99214; G0463

== ENCOUNTER 2023-10-03 15:30 | Outpatient (RCR) | payer MEDICARE, OTHER, SELFPAY | END 2023-10-03 17:07 | disposition home or self-care (01) | LOC: ANHDMC 15:30 | PROVIDERS: PCP Family Medicine; Visit Provider Nurse Practitioner Family | DX: E11.65 Type 2 diabetes mellitus with hyperglycemia (principal); Z71.89 Other specified counseling | CPT/HCPCS: G0108 ==

== ENCOUNTER 2023-11-04 15:28 | Outpatient (CLI) | payer MEDICARE, OTHER, SELFPAY ==
--- NOTE | ~2023-11-04 | XR_ITS ---
XR wrist RT 2V 11/04/2023 15:45 Indication: Right wrist pain Procedure: 2 views right wrist Comparison: No prior studies for comparison. Findings: There is polyarticular osteoarthritis involving the intercarpal joints, the triscaphe and f irst carpal metacarpal joints. Osteopenia. There are arterial calcifications. No acute fractures iden tified. No focal soft tissue abnormality. No foreign bodies. Impression: 1: Moderate polyarticular osteoarthritis. Reviewed, dictated and finalized at location B. Impression: 1: Moderate polyarticular osteoarthritis.
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
== END 2023-11-04 15:29 ==
PROVIDERS: PCP Nurse Practitioner Family; Visit Provider Nurse Practitioner Family
DX: M19.041 Primary osteoarthritis, right hand (principal); M19.031 Primary osteoarthritis, right wrist
CPT/HCPCS: 73100; 73120

== ENCOUNTER 2023-12-02 14:28 | Outpatient (CLI) | payer MEDICARE, OTHER, SELFPAY | END 2023-12-02 14:29 | disposition home or self-care (01) | LOC: ANHAUDIO 14:29 | PROVIDERS: PCP Nurse Practitioner Family; Visit Provider Nurse Practitioner Family | DX: H93.19 Tinnitus, unspecified ear (principal); H90.3 Sensorineural hearing loss, bilateral | CPT/HCPCS: 92557; 92567 ==

== ENCOUNTER 2023-12-18 00:47 | Emergency (ER) | payer MEDICARE, OTHER, SELFPAY ==
[2023-12-18 00:47] VITALS: BP 155/65; PULSE 88; RESP 24; TEMP 36.3; O2SAT 96
[2023-12-18 01:03] LABS: Basophils Percent Auto 0.2 % (0.2-1.2); Eosinophils Absolute Auto 0.2 K/mm3 (0-0.3); Eosinophils Percent Auto 1.8 % (0-4.4); Hematocrit 39.6 % (37.0-47.0); Hemoglobin 13.1 g/dL (12.0-15.0); Immature Granulocyte Absolute 0.08 K/mm3 (0.00-0.031); Immature Granulocyte Percent A 0.6 % (0-0.5); Lymphocytes Absolute Auto 2.34 K/mm3 (0.9-3.2); Lymphocytes Percent Auto 18.2 % (18.3-44.2); Mean Corpuscular HGB Conc 33.1 g/dl (32-36); Mean Corpuscular Hemoglobin 29.7 pg (26-34); Mean Corpuscular Volume 89.8 fl (80-100); Mean Platelet Volume 12.6 fl (7.4-10.4); Monocytes Absolute Auto 0.7 K/mm3 (0.1-0.6); Monocytes Percent Auto 5.7 % (2.6-8.5); Neutrophils Absolute Auto 9.5 K/mm3 (1.3-6.7); Neutrophils Percent Auto 73.5 % (45.5-73.1); Platelet Count Result 211 k/mm3 (150-375); Red Blood Count 4.41 M/mm3 (4.2-5.4); Red Cell Distribution Width 13.2 % (11.5-14.5); White Blood Count 12.9 K/mm3 (4.5-10.0)
[2023-12-18 01:19] LABS: Alanine Aminotransferase 17 U/L (6-35); Albumin Level 4.5 g/dL (3.5-5.1); Alkaline Phosphatase 86 U/L (38-126); Anion Gap 10 mmol/L (4-12); Aspartate Amino Transferase 28 U/L (14-36); Blood Urea Nitrogen 25 mg/dL (7-17); Calcium 9.1 mg/dL (8.4-10.2); Carbon Dioxide 19 mmol/L (22-30); Chloride 109 mmol/L (98-107); Estimated Glomerular Filt Rate 36; Glucose 181 mg/dL (65-110); Lipase 255 U/L (23-300); Potassium 3.5 mmol/L (3.4-5.0); Sodium 138 mmol/L (137-145)
[2023-12-18 01:46] VITALS: BP 151/59; PULSE 95; RESP 25; O2SAT 94
[2023-12-18] MEDS: LACTATED RINGERS 1,000 ML 999 ML IV CONT (01:47)
[2023-12-18] MEDS: ONDANSETRON INJ 4 MG/2 ML VIAL IV PUSH (01:47)
--- NOTE | 2023-12-18 02:07 | ED.NAVMDI ---
HPI - Nausea/Vomiting/Diarrhea General Chief complaint: Nausea/Vomiting/Diarrhea Stated complaint: N/V/D Time Seen by Provider: 12/18/23 01:34 History of Present Illness HPI Narrative: patient reporting nausea, vomiting, diarrhea which started about an hour prior to presentation here, she thinks that she ate some bad [employer] food. No abdominal pain. No dysuria Related Data Home Medications Medication Instructions Recorded Confirmed aspirin 81 mg tablet,delayed 81 mg PO HS 07/23/19 11/04/23 release (Adult Aspirin Regimen) calcium carbonate (Calcium 600) 600 mg PO DAILY 07/23/19 11/04/23 rosuvastatin 10 mg tablet 10 mg PO DAILY 08/15/23 11/04/23 dapagliflozin propanediol 10 mg 10 mg PO DAILY 08/19/23 11/04/23 tablet (Farxiga) Allergies Allergy/AdvReac Type Severity Reaction Status Date / Time No Known Allergies Allergy Verified 11/04/23 14:30 Review of Systems Review of Systems: All systems reviewed & are unremarkable except as noted in HPI and below PMFSH Past Medical History Medical History Anxiety Asthma Atrial fibrillation Bilateral tinnitus CAD (coronary artery disease) Cardiac catheterization November 2013 demonstrated 80% stenosis of very small right ventricular marginal branch stenosis otherwise mild nonobstructive coronary artery disease Dementia Depression Diabetes mellitus type 2 in obese On oral medications with last hemoglobin A1c May 2019 of 6.1 Diabetic peripheral neuropathy associated with type 2 diabetes mellitus Diastolic dysfunction Noted on cardiac catheterization from 2013 with a normal EF around 65% Diverticulosis Eczema Endometriosis Status post hysterectomy Essential hypertension Fibromyalgia Frequent falls GERD (gastroesophageal reflux disease) Glaucoma Grade IV hemorrhoids Status post hemorrhoidectomy August 17, 2019 History of CVA (cerebrovascular accident) left occipital lobe stroke February 2017, punctate left frontal lobe infarction May 2018 discharged on Coumadin Hyperlipidemia Hypocalcemia March 2019 IBS (irritable bowel syndrome) Internal and external bleeding hemorrhoids Morbid obesity OA (osteoarthritis) of knee Peripheral artery disease Bilateral lower extremity peripheral artery disease with mild stenosis indicated on ABIs June 2010 Peripheral neuropathy Pneumonia Seizure She denies ever having had a seizure. She states she was placed on it to increased seizure risk following her stroke. Skin cancer on nose Sleep apnea Spinal stenosis TIA (transient ischemic attack) 2017 Tinnitus Toe fracture Unilateral carotid artery disease Left carotid stenosis 50-75% Uterine fibroid UTI (urinary tract infection) Surgical History Surgical History H/O rectocele repair 2012 History of cardiac catheterization History of carpal tunnel release Right History of esophagogastroduodenoscopy (EGD) Performed due to GI bleeding and dysphagia with normal findings performed by Dr. Almanzar November 2018 History of hemorrhoidectomy 08/27/2019 History of hysterectomy for benign disease Partial hysterectomy History of laparoscopic cholecystectomy History of spinal surgery L4-L5 microdiskectomy November 2008 History of surgical removal of skin lesion on nose History of total right knee replacement (TKR) May 2016 History of tubal ligation Hx of appendectomy Hx of breast reduction, elective 1999 Hx of cataract removal with insertion of prosthetic lens Hx of section x2, 1967 and 1970 Hx of tonsillectomy Normal colonoscopy Performed due to rectal bleeding November 2018 demonstrated uncomplicated internal hemorrhoids Family History Family History Father Pulmonary asbestosis Lung cancer Cancer Mother CAD (coronary artery disease) Acute myocardial infarction Hyp
[2023-12-18 02:16] VITALS: BP 136/63; PULSE 93; RESP 19; O2SAT 95
[2023-12-18 02:31] VITALS: BP 149/65; PULSE 95; RESP 15; O2SAT 94
[2023-12-18] MEDS: diphenhydrAMINE HCl INJ 50 MG/ML VIAL 25 MG IV PUSH (02:40)
[2023-12-18] MEDS: METOCLOPRAMIDE HCL INJ 10 MG/2 ML VIAL IV PUSH (02:40)
[2023-12-18] MEDS: BISMUTH SUBSALICYLATE 262 MG CHEWABLE TABLET 524 MG PO (02:40)
[2023-12-18 02:46] VITALS: BP 169/78; PULSE 106; RESP 20; O2SAT 100
[2023-12-18 03:01] VITALS: BP 175/87; PULSE 103; RESP 21; O2SAT 100
[2023-12-18] MEDS: LORazepam INJ (*CRX) 2 MG/ML VIAL 0.5 MG IV PUSH (03:02)
== END 2023-12-18 03:30 | disposition home or self-care (01) ==
PROVIDERS: Emergency Provider Emergency Medicine; PCP Nurse Practitioner Family
DX: R11.2 Nausea with vomiting, unspecified (principal); R19.7 Diarrhea, unspecified; F41.9 Anxiety disorder, unspecified; J45.909 Unspecified asthma, uncomplicated; I48.91 Unspecified atrial fibrillation; I25.10 Atherosclerotic heart disease of native coronary artery without angina pectoris; F03.90 Unspecified dementia, unspecified severity, without behavioral disturbance, psychotic disturbance, mood disturbance, and anxiety; F32.A Depression, unspecified; E11.9 Type 2 diabetes mellitus without complications; I10 Essential (primary) hypertension; M79.7 Fibromyalgia; K21.9 Gastro-esophageal reflux disease without esophagitis; Z86.73 Personal history of transient ischemic attack (TIA), and cerebral infarction without residual deficits; E78.5 Hyperlipidemia, unspecified; G47.30 Sleep apnea, unspecified
CPT/HCPCS: 36415; 80053; 83690; 85025; 96361; 96374; 96375; 99284; A9270; J1200; J2060; J2405; J2765; J7120